=== PATIENT | male | born 1955 | race Caucasian/White ===

== ENCOUNTER 2021-01-30 11:24 | Inpatient (IN) ==
[2021-01-30 12:42] LABS: Basophils # (auto) 0.03 K/uL (0-0.2); Basophils % (auto) 0.3 %; Eosinophils # (auto) 0.15 K/uL (0-0.5); Eosinophils % (auto) 1.5 %; Hematocrit (blood only) 39.5 % (42-52); Hemoglobin 13.1 g/dL (14.0-18.0); Immature Granulocytes # (auto) 0.03 K/uL (0.00-0.02); Immature Granulocytes % (auto) 0.3 %; Lymphocytes # (auto) 1.62 K/uL (1.2-3.4); Lymphocytes % (auto) 16.3 %; Mean Corpuscular Hgb Conc 33.2 g/dL (32-36); Mean Corpuscular Volume 87.6 fL (80-100); Mean Platelet Volume 9.4 fL (7.4-10.4); Monocytes # (auto) 0.85 K/uL (0.11-0.59); Monocytes % (auto) 8.5 %; Neutrophils # (auto) 7.27 K/uL (1.4-6.5); Neutrophils % (auto) 73.1 %; Platelet Count 292 K/uL (130-400); RDW Standard Deviation 41.5 fL (36.4-46.3); Red Blood Count 4.51 M/uL (4.7-6.1); White Blood Count 9.95 K/uL (4.8-10.8)
[2021-01-30 12:51] LABS: INR 1.3 (0.9-1.1); Partial Thromboplastin Time 27.6 Seconds (21.0-31.0); Prothrombin Time 12.9 Seconds (9.0-12.0)
[2021-01-30 12:57] LABS: Albumin Level 3.2 gm/dl (3.4-5.0); BUN Creatinine Ratio 15.7 (10-20); Calcium 9.1 mg/dl (8.5-10.1); Creatinine Clr Calc Pharmacy 98.1 ml/min; Est GFR (African American) 103.6 ml/min; Est GFR (Non-African American) 89.4 ml/min; Magnesium 2.3 mg/dl (1.8-2.4); Potassium 4.2 mmol/L (3.5-5.1)
[2021-01-30 13:11] LABS: Albumin Globulin Ratio 0.7 (0.9-2); Bilirubin,Total 0.9 mg/dl (0.2-1); Globulin 4.6 gm/dl (2.5-4.0); Total Protein 7.8 gm/dl (6.4-8.2); Troponin I 1.17 ng/ml (0-0.045)
[2021-01-30] MEDS ORDERED: OPTIRAY 320 125ml IV ONE (13:18)
--- NOTE | 2021-01-30 13:53 | CT Scan Report ---
NONCONTRAST HEAD CT, HEAD & NECK CTA HISTORY: Left-sided weakness. Lightheaded. TECHNIQUE: Multiaxial CT images of the head were performed both before and after the intravenous admi nistration of contrast to evaluate the major cerebral vessels. Multiaxial CT images of the neck were also performed following the intravenous administration of contrast to evaluate the major cervical ve ssels. Maximum intensity projection images were also obtained. A dose lowering technique was utilized adhering to the principles of ALARA. COMPARISON: Head CT 01/01/2021. FINDINGS: NONCONTRAST HEAD CT: There is a 3.5 cm linear focus of encephalomalacia within the right posterior fr ontal lobe consistent with a old right MCA territory infarct. No acute hemorrhage or midline shift id entified. There are 2 new hypodense foci seen within the right anterior frontal lobe on image 21 and right posterior parietal lobe on image 20 which measure 1.6 and 1.5 cm, respectively. These are consi stent with acute to subacute infarcts. The ventricles are normal in size. The calvarium and skull bas e are intact. Paranasal sinuses and mastoid air cells are clear. There is an old small left frontal l obe infarct, unchanged. HEAD CTA: Visualized intracranial internal carotid arteries, distal vertebral arteries, and basilar a rtery are widely patent. There is no significant stenosis, occlusion, or aneurysm seen within the cecily ateral ACAs, MCAs, or fountain attendant. The major dural venous sinuses are patent. NECK CTA: The aortic arch and proximal great vessels are widely patent. There is no significant sten osis, occlusion, or dissection identified within the bilateral common carotid, internal carotid, or v ertebral arteries. IMPRESSION: 1. There are 2 new small acute to subacute infarcts within the right anterior frontal lobe and right posterior parietal lobe. 2. Old right posterior frontal and left frontal infarcts are again noted. 3. No intracranial hemorrhage identified. 4. No significant stenosis, occlusion, or aneurysm within the [place]. 5. The bilateral cervical carotid and vertebral arteries are widely patent. ACT 112: Negative or not required by law. Electronically signed by: Rashawn Lynch M.D. 01/30/2021 1:51 PM
--- NOTE | 2021-01-30 13:53 | CT Scan Report ---
NONCONTRAST HEAD CT, HEAD & NECK CTA HISTORY: Left-sided weakness. Lightheaded. TECHNIQUE: Multiaxial CT images of the head were performed both before and after the intravenous admi nistration of contrast to evaluate the major cerebral vessels. Multiaxial CT images of the neck were also performed following the intravenous administration of contrast to evaluate the major cervical ve ssels. Maximum intensity projection images were also obtained. A dose lowering technique was utilized adhering to the principles of ALARA. COMPARISON: Head CT 01/01/2021. FINDINGS: NONCONTRAST HEAD CT: There is a 3.5 cm linear focus of encephalomalacia within the right posterior fr ontal lobe consistent with a old right MCA territory infarct. No acute hemorrhage or midline shift id entified. There are 2 new hypodense foci seen within the right anterior frontal lobe on image 21 and right posterior parietal lobe on image 20 which measure 1.6 and 1.5 cm, respectively. These are consi stent with acute to subacute infarcts. The ventricles are normal in size. The calvarium and skull bas e are intact. Paranasal sinuses and mastoid air cells are clear. There is an old small left frontal l obe infarct, unchanged. HEAD CTA: Visualized intracranial internal carotid arteries, distal vertebral arteries, and basilar a rtery are widely patent. There is no significant stenosis, occlusion, or aneurysm seen within the cecily ateral ACAs, MCAs, or raiser helper. The major dural venous sinuses are patent. NECK CTA: The aortic arch and proximal great vessels are widely patent. There is no significant sten osis, occlusion, or dissection identified within the bilateral common carotid, internal carotid, or v ertebral arteries. IMPRESSION: 1. There are 2 new small acute to subacute infarcts within the right anterior frontal lobe and right posterior parietal lobe. 2. Old right posterior frontal and left frontal infarcts are again noted. 3. No intracranial hemorrhage identified. 4. No significant stenosis, occlusion, or aneurysm within the [place]. 5. The bilateral cervical carotid and vertebral arteries are widely patent. ACT 112: Negative or not required by law. Electronically signed by: Rashawn Lynch M.D. 01/30/2021 1:51 PM
--- NOTE | 2021-01-30 13:53 | CT Scan Report ---
NONCONTRAST HEAD CT, HEAD & NECK CTA HISTORY: Left-sided weakness. Lightheaded. TECHNIQUE: Multiaxial CT images of the head were performed both before and after the intravenous admi nistration of contrast to evaluate the major cerebral vessels. Multiaxial CT images of the neck were also performed following the intravenous administration of contrast to evaluate the major cervical ve ssels. Maximum intensity projection images were also obtained. A dose lowering technique was utilized adhering to the principles of ALARA. COMPARISON: Head CT 01/01/2021. FINDINGS: NONCONTRAST HEAD CT: There is a 3.5 cm linear focus of encephalomalacia within the right posterior fr ontal lobe consistent with a old right MCA territory infarct. No acute hemorrhage or midline shift id entified. There are 2 new hypodense foci seen within the right anterior frontal lobe on image 21 and right posterior parietal lobe on image 20 which measure 1.6 and 1.5 cm, respectively. These are consi stent with acute to subacute infarcts. The ventricles are normal in size. The calvarium and skull bas e are intact. Paranasal sinuses and mastoid air cells are clear. There is an old small left frontal l obe infarct, unchanged. HEAD CTA: Visualized intracranial internal carotid arteries, distal vertebral arteries, and basilar a rtery are widely patent. There is no significant stenosis, occlusion, or aneurysm seen within the cecily ateral ACAs, MCAs, or recreational facilities motel manager. The major dural venous sinuses are patent. NECK CTA: The aortic arch and proximal great vessels are widely patent. There is no significant sten osis, occlusion, or dissection identified within the bilateral common carotid, internal carotid, or v ertebral arteries. IMPRESSION: 1. There are 2 new small acute to subacute infarcts within the right anterior frontal lobe and right posterior parietal lobe. 2. Old right posterior frontal and left frontal infarcts are again noted. 3. No intracranial hemorrhage identified. 4. No significant stenosis, occlusion, or aneurysm within the [place]. 5. The bilateral cervical carotid and vertebral arteries are widely patent. ACT 112: Negative or not required by law. Electronically signed by: Rashawn Lynch M.D. 01/30/2021 1:51 PM
[2021-01-30] MEDS ORDERED: SODIUM CHLORIDE 0.9% 1000ML 1,000 ML IV ONE (14:57)
--- NOTE | 2021-01-30 15:06 | Emergency Department Note ---
Impression & Plan CVA (cerebral vascular accident), Anticoagulant long-term use, Third degree heart block, Dizziness ED Provider Note NAME: IDANIA HERNANDEZ AGE: 65 SEX: M ARRIVES VIA: Walk-In INFORMANT: Patient, ED PROVIDER(S): Valentin White MD CHIEF COMPLAINT: Dizziness PLAN: Disposition: Admit MEDICAL DECISION MAKING: The patient is a pleasant 65-year-old gentleman with a past medical history of CVA on 12/26 where he presented with left-sided weakness and was treated with TPA at outside hospital presents to the emergency department accompanied by his for symptoms of frequent dizziness/lightheadedness over the past couple of days and development of tingling in his right lateral proximal forearm. They report that recently they had a outpatient sheet rock hanger that was reviewed and showed intermittent episodes of complete heart block and have a follow-up with [place] cardiology upcoming. There was denies fevers, chills, cough, congestion, GI or symptoms. Of note, the patient was recently admitted to [facility] after presenting to [facility] and was diagnosed with DVT and he is currently on Eliquis. On arrival patient is in no acute distress, afebrile with stable vital signs. He appears clinically dry. His left upper extremity has 4/5 strength at his recent baseline. Otherwise no new focal weakness. He has subjective numbness to the proximal lateral aspect of his right forearm. EKG shows no high degree block and no overt acute ischemia. WBC and platelets then normal limits. H/H 13.1/39.5 decreased from last month. Chemistry without metabolic acidosis. Electrolytes unremarkable. AST 68, alk phos 607 nonspecific and similar to prior. Troponin 1.17 without prior elevations noted. COVID-[address] of the head and CT of the head neck were performed and demonstrates 2 new small acute to subacute infarcts within the right anterior frontal lobe and right posterior parietal lobe. Old right posterior frontal and left frontal infarcts are again noted. Otherwise no large vessel occlusion. Given evidence of new CVA, patient and his agree with plan for admission. [facility] hospital[facility] will evaluate the patient for admission. Triage Nursing notes reviewed and agree them. Prior medical records reviewed Vital Signs: reviewed and remarkable for no significant abnormalities Differential diagnosis: Infection, dehydration, metabolic abnormality, hypo/hyperglycemia, electrolyte disturbance, anemia, hypoxia, cardiac sources, intracerebral event, toxicologic, neurologic, as well as other pathologies. ER treatment provided: See below. Diagnostics interpreted by me: ECG: Normal sinus rhythm with first-degree AV block, 81 bpm, no ectopy, no overt ST elevation or depression, QTC 411, QRS 80. Cardiac Monitoring: An order for continuous cardiac monitoring was placed and demonstrated Normal sinus rhythm with first-degree AV block, 81 bpm, no ectopy. Laboratory studies: See below Imaging studies: See below Consultation(s): [facility] hospitalist HPI: The patient is a pleasant 65-year-old gentleman with a past medical history of CVA on 12/26 where he presented with left-sided weakness and was treated with TPA at outside hospital presents to the emergency department accompanied by his for symptoms of frequent dizziness/lightheadedness over the past couple of days and development of tingling in his right lateral proximal forearm. They report that recently they had a outpatient sheet rock hanger that was reviewed and showed intermittent episodes of complete heart block and have a follow-up with [place] [facility]ology upcoming. There was denies fevers, chills, cough, congestion, GI or symptoms. Of note, the patient was recently admitted to [facility] after presenting to [facility] and was diagnosed with DVT and he is currently on Eliquis. ROS: See above HPI for pertinent positives & negatives. A total of 10 systems reviewed and were otherwise negative. PAST MEDICAL HISTORY:See Below PAST SURGICAL HISTORY:See Below FAMILY HISTORY:See Below SOCIAL HISTORY:See Below HOME MEDICATIONS:See Below ALLERGIES:See Below VITALS:See Below PHYSICAL EXAMINATION: GENERAL: Awake, alert, fatigued-appearing, in no distress HENT: Normocephalic, atraumatic. Oropharynx with dry mucous membranes and otherwise unremarkable. EYES: Normal conjunctiva. Sclera non-icteric. EOMI. No nystamgus. PEARRL. NECK: Supple. No nuchal rigidity. FROM. No JVD. RESPIRATORY: Clear to auscultation. CARDIAC: Regular rate, normal rhythm. Extremities warm and well perfused. Pulses equal. ABDOMEN: Soft, non-distended. No tenderness to palpation. No rebound or guarding. No masses. RECTAL: Deferred. MUSCULOSKELETAL: Chest examination reveals no tenderness. The back is symmetrical on inspection without obvious abnormality. There is no CVA tenderness to palpation. No joint edema. LOWER EXTREMITIES: Calves are equal size bilaterally and non-tender. No edema. No discoloration. NEURO: CNII-XII grossly intact. No dyarthria. No overt aphasia. LUE 4/5 strength. Otherwise 5/5 strength RUE, BLE. SILT x 4 ext. No overt dysmetria. SKIN: No rash or jaundice noted. 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 Beliefs That Will Affect Care: None marital status: Current Living Situation: Spouse current occupational status: employed Feels Safe at Home: Yes Childhood Exposure to Second-Hand Smoke: No Dental Care, Regularly: Yes Physical Activity Frequency: Daily Seatbelt Use: always Sunscreen Use: Yes Assistive Devices: Contacts Allergies Allergies Allergy/AdvReac Type Severity Reaction Status Date / Time Bee sting Allergy Swelling Uncoded 01/30/21 11:48 of Lip/Tongue/Throat Home Meds Home Medications Medication Instructions Recorded Confirmed aspirin 81 mg tablet,delayed 81 mg PO DAILY 01/01/21 01/30/21 release Previous Rx's Medication Instructions Recorded apixaban 5 mg tablet (Eliquis) 5 mg PO BID #60 tab 01/22/21 atorvastatin 40 mg tablet 20 mg PO DAILY #30 tab 01/28/21 Results & Data (ED) Vital Signs Vital Signs - 24 hr 01/30/21 11:26 01/30/21 11:40 01/30/21 11:45 Temperature 36.8 C Temperature Source Temporal Artery Scan Pulse Rate 104 H 84 Pulse Rate from SpO2 Sensor 84 Respiratory Rate 19 18 Respiratory Effort / Characteristics Non-Labored Spontaneous Respiratory Depth Normal Blood Pressure 140/90 140/97 Blood Pressure Mean 106 111 Blood Pressure Position Sitting Pulse Oximetry 95 95 98 Oxygen Delivery Method Room Air Room Air Room Air Sepsis Recent Fever Within 48 Hours No Sepsis New/Unexplained Change in Mental Status N/A Sepsis Action Taken by Nursing No Action Required 01/30/21 12:15 01/30/21 12:30 01/30/21 13:00 Temperature Temperature Source Pulse Rate 79 75 72 Pulse Rate from SpO2 Sensor 79 76 72 Respiratory Rate 23 19 19 Respiratory Effort / Characteristics Respiratory Depth Blood Pressure 138/99 148/93 H Blood Pressure Mean 112 111 Blood Pressure Position Pulse Oximetry 95 96 96 Oxygen Delivery Method Room Air Sepsis Recent Fever Within 48 Hours Sepsis New/Unexplained Change in Mental Status Sepsis Action Taken by Nursing 01/30/21 14:00 01/30/21 14:30 01/30/21 15:00 Temperature Temperature Source Pulse Rate 66 71 71 Pulse Rate from SpO2 Sensor 67 72 70 Respiratory Rate 19 17 19 Respiratory Effort / Characteristics Respiratory Depth Blood Pressure 136/77 133/92 154/101 H Blood Pressure Mean 96 105 118 Blood Pressure Position Pulse Oximetry 95 97 97 Oxygen Delivery Method Sepsis Recent Fever Within 48 Hours Sepsis New/Unexplained Change in Mental Status Sepsis Action Taken by Nursing 01/30/21 15:30 01/30/21 16:02 01/30/21 16:30 Temperature Temperature Source Pulse Rate 71 74 88 Pulse Rate from SpO2 Sensor 69 77 86 Respiratory Rate 16 19 20 Respiratory Effort / Characteristics Respiratory Depth Blood Pressure 143/90 H 162/99 H 155/103 H Blood Pressure Mean 107 120 120 Blood Pressure Position Pulse Oximetry 96 98 98 Oxygen Delivery Method Sepsis Recent Fever Within 48 Hours Sepsis New/Unexplained Change in Mental Status Sepsis Action Taken by Nursing Laboratory Data Attestation: I reviewed the patient's lab results. Result diagrams: 01/30/21 12:15 01/30/21 12:15 Lab Results 01/30/21 01/30/21 01/30/21 Range/Units 12:15 12:15 12:15 WBC 9.95 (4.8-10.8) K/uL RBC 4.51 L (4.7-6.1) M/uL Hgb 13.1 L (14.0-18.0) g/dL Hct 39.5 L (42-52) % MCV 87.6 (80-100) fL MCH 29.0 (25-34) pg MCHC 33.2 (32-36) g/dL RDW Std Deviation 41.5 (36.4-46.3) fL RDW Coeff of [place] 13.0 (11.5-14.5) % Plt Count 292 (130-400) K/uL MPV 9.4 (7.4-10.4) fL Immature Gran % (Auto) 0.3 % Neut % (Auto) 73.1 % Lymph % (Auto) 16.3 % [place] % (Auto) 8.5 % Eos % (Auto) 1.5 % Baso % (Auto) 0.3 % Neut # (Auto) 7.27 H (1.4-6.5) K/uL Lymph # (Auto) 1.62 (1.2-3.4) K/uL [place] # (Auto) 0.85 H (0.11-0.59) K/uL Eos # (Auto) 0.15 (0-0.5) K/uL Baso # (Auto) 0.03 (0-0.2) K/uL Immature Gran # (Auto) 0.03 H (0.00-0.02) K/uL ESR (0-20) mm/hr PT 12.9 H (9.0-12.0) Seconds INR 1.3 H (0.9-1.1) APTT 27.6 (21.0-31.0) Seconds PTT Ratio 1.0 Sodium 137 (136-145) mmol/L Potassium 4.2 (3.5-5.1) mmol/L Chloride 104 (98-107) mmol/L Carbon Dioxide 26 (21-32) mmol/L Anion Gap 7.0 (3-11) BUN 14 (7-18) mg/dl Creatinine 0.91 (0.6-1.4) mg/dl Est Cr Clr Drug Dosing 98.1 ml/min Est GFR ( Amer) 103.6 ml/min Est GFR (Non-Af Amer) 89.4 ml/min BUN/Creatinine Ratio 15.7 (10-20) Glucose 97 (70-99) mg/dl Calcium 9.1 (8.5-10.1) mg/dl Magnesium 2.3 (1.8-2.4) mg/dl Total Bilirubin 0.9 (0.2-1) mg/dl AST 68 H (15-37) U/L ALT 57 (12-78) U/L Alkaline Phosphatase 607 H (45-117) U/L Troponin I 1.170 H* (0-0.045) ng/ml C-Reactive Protein (0-0.29) mg/dl Total Protein 7.8 (6.4-8.2) gm/dl Albumin 3.2 L (3.4-5.0) gm/dl Globulin 4.6 H (2.5-4.0) gm/dl Albumin/Globulin Ratio 0.7 L (0.9-2) COVID-19 Eval Order SARS-CoV-2 (PCR) (Negative) 01/30/21 01/30/21 01/30/21 Range/Units 12:15 12:15 12:34 WBC (4.8-10.8) K/uL RBC (4.7-6.1) M/uL Hgb (14.0-18.0) g/dL Hct (42-52) % MCV (80-100) fL MCH (25-34) pg MCHC (32-36) g/dL RDW Std Deviation (36.4-46.3) fL RDW Coeff of [place] (11.5-14.5) % Plt Count (130-400) K/uL MPV (7.4-10.4) fL Immature Gran % (Auto) % Neut % (Auto) % Lymph % (Auto) % [place] % (Auto) % Eos % (Auto) % Baso % (Auto) % Neut # (Auto) (1.4-6.5) K/uL Lymph # (Auto) (1.2-3.4) K/uL [place] # (Auto) (0.11-0.59) K/uL Eos # (Auto) (0-0.5) K/uL Baso # (Auto) (0-0.2) K/uL Immature Gran # (Auto) (0.00-0.02) K/uL ESR 41 H (0-20) mm/hr PT (9.0-12.0) Seconds INR (0.9-1.1) APTT (21.0-31.0) Seconds PTT Ratio Sodium (136-145) mmol/L Potassium (3.5-5.1) mmol/L Chloride (98-107) mmol/L Carbon Dioxide (21-32) mmol/L Anion Gap (3-11) BUN (7-18) mg/dl Creatinine (0.6-1.4) mg/dl Est Cr Clr Drug Dosing ml/min Est GFR ( Amer) ml/min Est GFR (Non-Af Amer) ml/min BUN/Creatinine Ratio (10-20) Glucose (70-99) mg/dl Calcium (8.5-10.1) mg/dl Magnesium (1.8-2.4) mg/dl Total Bilirubin (0.2-1) mg/dl AST (15-37) U/L ALT (12-78) U/L Alkaline Phosphatase (45-117) U/L Troponin I (0-0.045) ng/ml C-Reactive Protein 9.76 H (0-0.29) mg/dl Total Protein (6.4-8.2) gm/dl Albumin (3.4-5.0) gm/dl Globulin (2.5-4.0) gm/dl Albumin/Globulin Ratio (0.9-2) COVID-19 Eval Order Covid19 at [facility] SARS-CoV-2 (PCR) (Negative) 01/30/21 Range/Units 12:34 WBC (4.8-10.8) K/uL RBC (4.7-6.1) M/uL Hgb (14.0-18.0) g/dL Hct (42-52) % MCV (80-100) fL MCH (25-34) pg MCHC (32-36) g/dL RDW Std Deviation (36.4-46.3) fL RDW Coeff of [place] (11.5-14.5) % Plt Count (130-400) K/uL MPV (7.4-10.4) fL Immature Gran % (Auto) % Neut % (Auto) % Lymph % (Auto) % [place] % (Auto) % Eos % (Auto) % Baso % (Auto) % Neut # (Auto) (1.4-6.5) K/uL Lymph # (Auto) (1.2-3.4) K/uL [place] # (Auto) (0.11-0.59) K/uL Eos # (Auto) (0-0.5) K/uL Baso # (Auto) (0-0.2) K/uL Immature Gran # (Auto) (0.00-0.02) K/uL ESR (0-20) mm/hr PT (9.0-12.0) Seconds INR (0.9-1.1) APTT (21.0-31.0) Seconds PTT Ratio Sodium (136-145) mmol/L Potassium (3.5-5.1) mmol/L Chloride (98-107) mmol/L Carbon Dioxide (21-32) mmol/L Anion Gap (3-11) BUN (7-18) mg/dl Creatinine (0.6-1.4) mg/dl Est Cr Clr Drug Dosing ml/min Est GFR ( Amer) ml/min Est GFR (Non-Af Amer) ml/min BUN/Creatinine Ratio (10-20) Glucose (70-99) mg/dl Calcium (8.5-10.1) mg/dl Magnesium (1.8-2.4) mg/dl Total Bilirubin (0.2-1) mg/dl AST (15-37) U/L ALT (12-78) U/L Alkaline Phosphatase (45-117) U/L Troponin I (0-0.045) ng/ml C-Reactive Protein (0-0.29) mg/dl Total Protein (6.4-8.2) gm/dl Albumin (3.4-5.0) gm/dl Globulin (2.5-4.0) gm/dl Albumin/Globulin Ratio (0.9-2) COVID-19 Eval Order SARS-CoV-2 (PCR) NEGATIVE (Negative) Administered Medications Heparin Sodium/Dextrose (Heparin Sodium/Dextrose) 25,000 units in 500 mls @ 30 mls/hr IV .[id number] [facility]; Protocol Stop: 03/01/21 20:16 Last Admin: 01/30/21 21:02 Dose: 1,500 units/hr, 30 mls/hr Documented by: [id number] Cosigned by: [id number] Discontinued Medications Gadobutrol (Gadobutrol 65ml Vial) 9.5 ml IV ONCE ONE Stop: 01/30/21 18:43 Last Admin: 01/30/21 18:42 Dose: 9.5 ml Documented by: [id number] Heparin Sodium/Dextrose (Heparin Iv Adult Wt-Based Standard *No* Bolus Protocol) 1 ea IV Q30M [facility]; Protocol Stop: 01/30/21 22:48 Last Admin: 01/30/21 21:40 Dose: Not Given Documented by: [id number] Sodium Chloride (Nss 1000ml) 1,000 mls @ 999 mls/hr IV .[id number] ONE Stop: 01/30/21 15:57 Last Infusion: 01/30/21 16:37 Dose: 0 mls/hr Documented by: [id number] Admin: 01/30/21 15:18 Dose: 999 mls/hr Documented by: [id number] Ioversol (Optiray 320 125ml) 120 ml IV ONCE ONE Stop: 01/30/21 13:19 Last Admin: 01/30/21 13:18 Dose: 120 ml Documented by: [id number] Imaging Data Radiologist's Impression: Head CT 01/30/21 12:[address], HEAD & NECK CTA HISTORY: Left-sided weakness. Lightheaded. TECHNIQUE: Multiaxial CT images of the head were performed both before and after the intravenous administration of contrast to evaluate the major cerebral vessels. Multiaxial CT images of the neck were also performed following the intravenous administration of contrast to evaluate the major cervical vessels. Maximum intensity projection images were also obtained. A dose lowering technique was utilized adhering to the principles of ALARA. COMPARISON: Head CT 01/01/2021. FINDINGS: NONCONTRAST HEAD CT: There is a 3.5 cm linear focus of encephalomalacia within the right posterior frontal lobe consistent with a old right MCA territory infarct. No acute hemorrhage or midline shift identified. There are 2 new hypodense foci seen within the right anterior frontal lobe on image 21 and right posterior parietal lobe on image 20 which measure 1.6 and 1.5 cm, respectively. These are consistent with acute to subacute infarcts. The ventricles are normal in size. The calvarium and skull base are intact. Paranasal sinuses and mastoid air cells are clear. There is an old small left frontal lobe infarct, unchanged. HEAD CTA: Visualized intracranial internal carotid arteries, distal vertebral arteries, and basilar artery are widely patent. There is no significant stenosis, occlusion, or aneurysm seen within the bilateral ACAs, MCAs, or lunch truck driver. The major dural venous sinuses are patent. NECK CTA: The aortic arch and proximal great vessels are widely patent. There is no significant stenosis, occlusion, or dissection identified within the bilateral common carotid, internal carotid, or vertebral arteries. IMPRESSION: 1. There are 2 new small acute to subacute infarcts within the right anterior frontal lobe and right posterior parietal lobe. 2. Old right posterior frontal and left frontal infarcts are again noted. 3. No intracranial hemorrhage identified. 4. No significant stenosis, occlusion, or aneurysm within the [place]. 5. The bilateral cervical carotid and vertebral arteries are widely patent. ACT 112: Negative or not required by law. Electronically signed by: Rashawn Lynch M.D. 01/30/2021 1:51 PM Head CTA 01/30/21 12:[address], HEAD & NECK CTA HISTORY: Left-sided weakness. Lightheaded. TECHNIQUE: Multiaxial CT images of the head were performed both before and after the intravenous administration of contrast to evaluate the major cerebral vessels. Multiaxial CT images of the neck were also performed following the intravenous administration of contrast to evaluate the major cervical vessels. Maximum intensity projection images were also obtained. A dose lowering technique was utilized adhering to the principles of ALARA. COMPARISON: Head CT 01/01/2021. FINDINGS: NONCONTRAST HEAD CT: There is a 3.5 cm linear focus of encephalomalacia within the right posterior frontal lobe consistent with a old right MCA territory infarct. No acute hemorrhage or midline shift identified. There are 2 new hypodense foci seen within the right anterior frontal lobe on image 21 and right posterior parietal lobe on image 20 which measure 1.6 and 1.5 cm, respectively. These are consistent with acute to subacute infarcts. The ventricles are normal in size. The calvarium and skull base are intact. Paranasal sinuses and mastoid air cells are clear. There is an old small left frontal lobe infarct, unchanged. HEAD CTA: Visualized intracranial internal carotid arteries, distal vertebral arteries, and basilar artery are widely patent. There is no significant stenosis, occlusion, or aneurysm seen within the bilateral ACAs, MCAs, or lunch truck driver. The major dural venous sinuses are patent. NECK CTA: The aortic arch and proximal great vessels are widely patent. There is no significant stenosis, occlusion, or dissection identified within the bilateral common carotid, internal carotid, or vertebral arteries. IMPRESSION: 1. There are 2 new small acute to subacute infarcts within the right anterior frontal lobe and right posterior parietal lobe. 2. Old right posterior frontal and left frontal infarcts are again noted. 3. No intracranial hemorrhage identified. 4. No significant stenosis, occlusion, or aneurysm within the [place]. 5. The bilateral cervical carotid and vertebral arteries are widely patent. ACT 112: Negative or not required by law. Electronically signed by: Rashawn Lynch M.D. 01/30/2021 1:51 PM Neck CTA 01/30/21 12:[address], HEAD & NECK CTA HISTORY: Left-sided weakness. Lightheaded. TECHNIQUE: Multiaxial CT images of the head were performed both before and after the intravenous administration of contrast to evaluate the major cerebral vessels. Multiaxial CT images of the neck were also performed following the intravenous administration of contrast to evaluate the major cervical vessels. Maximum intensity projection images were also obtained. A dose lowering tech nique was utilized adhering to the principles of ALARA. COMPARISON: Head CT 01/01/2021. FINDINGS: NONCONTRAST HEAD CT: There is a 3.5 cm linear focus of encephalomalacia within the right posterior frontal lobe consistent with a old right MCA territory infarct. No acute hemorrhage or midline shift identified. There are 2 new hypodense foci seen within the right anterior frontal lobe on image 21 and right posterior parietal lobe on image 20 which measure 1.6 and 1.5 cm, respectively. These are consistent with acute to subacute infarcts. The ventricles are normal in size. The calvarium and skull base are intact. Paranasal sinuses and mastoid air cells are clear. There is an old small left frontal lobe infarct, unchanged. HEAD CTA: Visualized intracranial internal carotid arteries, distal vertebral arteries, and basilar artery are widely patent. There is no significant stenosis, occlusion, or aneurysm seen within the bilateral ACAs, MCAs, or lunch truck driver. The major dural venous sinuses are patent. NECK CTA: The aortic arch and proximal great vessels are widely patent. There is no significant stenosis, occlusion, or dissection identified within the bilateral common carotid, internal carotid, or vertebral arteries. IMPRESSION: 1. There are 2 new small acute to subacute infarcts within the right anterior frontal lobe and right posterior parietal lobe. 2. Old right posterior frontal and left frontal infarcts are again noted. 3. No intracranial hemorrhage identified. 4. No significant stenosis, occlusion, or aneurysm within the [place]. 5. The bilateral cervical carotid and vertebral arteries are widely patent. ACT 112: Negative or not required by law. Electronically signed by: Rashawn Lynch M.D. 01/30/2021 1:51 PM Discharge Plan Visit Data Chief Complaint: Stroke/CVA Symptoms Stated Complaint: STROKE SYMPTOMS ED Provider: Valentin White Discharge Problem: CVA (cerebral vascular accident), Anticoagulant long-term use, Third degree heart block, Dizziness Patient Disposition: Admitted As Inpatient Discharge Instructions Interventions: ED Discharge Assessment Last Done: 01/30/21 19:41 Discharge Problem: CVA (cerebral vascular accident) Qualifiers: CVA mechanism: unspecified Qualified Code(s): I63.9 - Cerebral infarction, unspecified
--- NOTE | 2021-01-30 17:02 | History & Physical Report ---
Date of Service January 30, 2021 Assessment & Plan (1) Right sided cerebral hemisphere cerebrovascular accident (CVA): Plan: Mr. Caban is a 65 year old gentleman who recently suffered a bi-hemispheric ischemic stroke in November 2020, found to have two new small acute to subacute infarcts within the right anterior frontal lobe and right posterior parietal lobe. - etiology of ischemic strokes likely embolic given bihemispheric distribution. Suspect central cardiothromboembolic origin. Differential includes left atrial appendage clot (although no Afib noted on 14 day monitor), LV thrombus, PFO (although patient had negative bubble study with TTE at [facility]), and severe thrombotic disease of proximal ascending aorta - tpA contraindicated, as patient presented outside window, and he is currently on blood thinner. - Brain MRI ordered - TTE with bubble study ordered - if this is negative, consider NELLIE - lipid panel and HbA1c in am - consider Chest CTA to assess morphology/atherosclerotic state of ascending aorta - refrain from anti-hypertensive use, allowing for permissive HTN in acute post- stroke period - neuro checks Q2h - continue daily baby aspirin and increase atorvastatin to 40mg daily - neurology consult placed (2) Third degree heart block: Plan: - captured on 14 day external media monitor - etiology uncertain: ischemic disease (plausible given elevated trop) vs. non-i schemic age-related degeneration of cardiac conduction system vs. secondary to lyme disease - lyme testing ordered - external pacer pads placed - monitor on telemetry - cardiology consult placed - anticipate need for pacemaker placement (3) Elevated troponin: Plan: - trop 1.17 on admission - patient denies chest pain - EKG without acute ST segment changes or repolarization abnormalities - on heparin ggt - trend levels - cardiology consult placed - NPO in the event of potential catheterization (4) Inadequate anticoagulation: Plan: - new ischemic strokes noted on admission head CT despite Eliquis use - patient had tolerance issues with warfarin and has now failed Eliquis - antiphospholipid antibody testing ordered; consider additional clotting disorder work up if negative - placed on heparin drip - consider re-trial of warfarin vs. therapeutic Lovenox dosing as outpatient (5) DVT (deep venous thrombosis): Plan: - noted end of November 2020 of Left LE - on heparin drip (6) Dyslipidemia: Plan: - continue atorvastatin + daily baby ASA (7) Elevated AST (SGOT): Plan: - elevated to 68 on admission - suspect released from cardiac myocytes under strain (given co-existent elevated trop) - trend CMP Diet: NPO in the event of potential cath Dvt ppx: On heparin drip Dispo: PCU Code: Full, I discussed with patient History of Present Illness Primary Care Provider: Mino Payan MD Mr. Caban is a 65 yo gentleman with a PMHx of recent ischemic cerebrovascular disease, DVT and dyslipidemia who presented for evaluation of intermittent dizziness/lightheadedness and R upper extremity numbness. These symptoms started 01/28/21 - he contacted his PCP's office today, who directed him to the ED for further evaluation. Of note, patient was on vacation with his family in [place] in November 2020. One morning while shaving, he noticed sudden onset left hand numbness/weakness/clumsiness. He went to a local emergency department, where a stroke work up was performed. He was found to have an ischemic right posterior frontal and left frontal infarct. He was treated with tPA. In-house neurology was consulted and felt as though his strokes were embolic in origin - of note he did have a TTE at outside hospital with a negative bubble study; nor were any arrhythmias captured on monitor during his stay at outside hospital. Subsequent cat scans of the head showed multiple punctate cerebrale hemorrhages (hemorrhagic transformation). He was discharged on a daily baby aspirin and sent home with a ziopatch (external media monitor). The next day, he drove back up to [place] with his family - during the 10 hour car ride, he developed new onset left lower extremity pain. He had this evaluated immediately in the [facility] ED - doppler US was positive for multiple DVTs in the left lower extremity. He was started on a Lovenox bridge to coumadin. He was transferred to [facility] in the event this DVT would need manual intervention despite initiation of Lovenox - fortunately it did not. However, after being on coumadin for several days, he developed a rash (described as fine red ybarra) all over his bilateral lower legs, and bilateral leg pain. The leg discomfort began so significant that he was having a great deal of difficulty ambulating. For this reason, he was transitioned from coumadin to Eliquis 5mg, BID. Subsequently, he has received the results of the 14 day media monitor report - which showed intermittent 3rd degree heart block, 2nd degree heart block, and SVT. He has not yet seen cardiology. He has been doing PT and OT for his residual left hand clumsiness/weakness. Mr. Caban insists he has been taking with Eliquis as directed, denying any missed doses. He was started on a high intensity statin (lipitor 40mg) by his PCP, however the dose was reduced over the past 10 days to 20mg every other day (PCP was trying to see if b/l lower extremity weakness was from statin rather than myalgia). He was previously on chlorthalidone for his blood pressure, but was able to come off this medication with lifestyle modifications. Family Hx: No known clotting disorders. Father of a massive heart attack at age 77. Social Hx: Remote smoking hx (smoked for 4 years, quit > 40 years ago). Social drinker (1-2 drinks per month). He denies any known tick bites this summer or spring. In the ED, he was febrile with a normal HR and mildly elevated BP at 141/89. His Hgb was mildly low at 13.1, CBC otherwise unremarkable. Kidney function and electrolytes were WNL. AST was elevated to 86, ALT was normal. Trop was elevated to 1.17. COVID 19 neg. EKG showing a 1st degree AV krishna block, no ST segment changes. Head CT showed no evidence of an acute hemorrhage. Head and Neck CTA showed evidence of 2 new small acute to subacute infarcts within the right anterior frontal lobe and right posterior parietal lobe. He was given 1 liter of NSS. Allergies Allergy/AdvReac Type Severity Reaction Status Date / Time Bee sting Allergy Swelling Uncoded 01/30/21 11:48 of Lip/Tongue/Throat Home Medications Medication Instructions Recorded Confirmed Type aspirin 81 mg tablet,delayed 81 mg PO DAILY 01/01/21 01/30/21 History release apixaban 5 mg tablet (Eliquis) 5 mg PO BID #60 tab 01/22/21 01/30/21 Rx atorvastatin 40 mg tablet 20 mg PO DAILY #30 tab 01/28/21 01/30/21 Rx Past Med/Surg History Medical History DVT (deep venous thrombosis) Late effects of CVA (cerebrovascular accident) Left leg pain Leg pain, bilateral Lightheadedness Right sided cerebral hemisphere cerebrovascular accident (CVA) Third degree heart block Surgical History No pertinent past surgical history Family History Father Myocardial infarction Social History Smoking Status: Former smoker Hx Alcohol Use: Yes Alcohol type: wine Hx Substance Use: No Preferred Language: Cypriot Visual Impairment: Limited Hearing Ability: Normal marital status: Current Living Situation: Spouse current occupational status: employed Feels Safe at Home: Yes Childhood Exposure to Second-Hand Smoke: No Dental Care, Regularly: Yes Physical Activity Frequency: Daily Seatbelt Use: always Sunscreen Use: Yes Review of Systems Constitutional: no fever and no chills Respiratory: no cough Cardiovascular: no chest pain and no dyspnea Gastrointestinal: no abdominal pain Neurologic: + localized weakness (left upper extremity ) and + paresthesia (right upper extremity ) + headache Physical Exam Constitutional: WD/WN, vitals as above no acute distress Eyes: PERRL, conjunctivae normal, anicteric sclerae normal accommodation and + nystagmus (horizontal ) ENMT: external ear and nose normal, oropharynx normal Throat: uvula midline Neck: trachea midline, no thyromegaly Respiratory: normal respiratory effort, lungs clear to auscultation Cardiovascular: RRR, no murmur, no edema Heart Sounds: normal S1 and normal S2 Vessels: normal carotid upstroke; no carotid bruit Gastrointestinal (Abdomen): normal bowel sounds, soft, nontender, no hepatosplenomegaly Musculoskeletal: no cyanosis or clubbing, extremities motor strength 5/5 Head/Neck/Chest: normocephalic and head atraumatic Skin: no rashes, warm and dry Neurologic: PERRL, EOMI, accommodation nl, no face palsy, no dysarthria CN's II-XI intact bilaterally and moves all extremities; no focal motor deficits Speech / Cognition: normal speech Motor/Sensory: no tremor Coordination: + abnormal [id number] test (left side) Psychiatric: A+Ox3, euthymic affect Results & Data Results & Data ([facility]) Vital Signs (Past 12 Hours) Vital Signs Temp Pulse Resp BP Pulse Ox 09/01/21 16:30 88 20 155/103 H 98 01/30/21 16:02 74 19 162/99 H 98 01/30/21 15:30 71 16 143/90 H 96 01/30/21 15:00 71 19 154/101 H 97 01/30/21 14:30 71 17 133/92 97 01/30/21 14:00 66 19 136/77 95 01/30/21 13:00 72 19 148/93 H 96 01/30/21 12:30 75 19 138/99 96 01/30/21 12:15 79 23 95 01/30/21 11:45 84 18 140/97 98 01/30/21 11:40 95 01/30/21 11:26 36.8 C 104 H 19 140/90 95 Code Status & VTE Plan VTE Prophylaxis Plan VTE Prophylaxis will be ordered: Yes Supervising Physician Co-Signing Physician Notes I personally examined the patient and verified all berry points of history and exam, discussed case, and agree with decision making with Dr Esctoo Feeling off. Lots of paresthesias, dizziness, just generally not feeling well. Fortunately when I see him, he feels no worse than earlier. No worse headache, no new neuro deficits, etc. Recent history reviewed in detail. Vitals noted, in general he is awake and alert, oriented, no distress. He does seem slightly slower to respond than 1 would expect for a man of his age and prior good health, but to be clear he is quite coherent. HEENT normocephalic atraumatic mucous membranes moist. Breathing unlabored no accessory muscle use good effort. Skin without rashes pallor or icterus. Exam otherwise as above. Labs and diagnostics as aboveof note after Dr. Escoto had seen patient, MRI was done/returneddiffuse multiple scattered areas consistent with embolic infarct. Embolic CVA -The "clot" differentials seem most likely to either be a paradoxical embolus, given the context of his current DVT, or an LV thrombuswhich would fit together with his elevated troponin and complete heart block. Both of these, however, would entail failing apixaban as an anticoagulant as it relates to the clotswhich would also begs the question of any sort of thrombophilia that might fail a DOAC (such as antiphospholipid's) -In discussion with neurology, Dr. Douglas raised the very hernandez consideration of emboli that are not clotssuch as septic emboliblood cultures have been ordered, inflammatory markers ordered. He also raised the question of [employer] vasculitis type processesand will be seeing him for further work-up as it relates to imaging, in that respect, inflammatory markers also added. -For now, the risk/benefit of anticoagulation seems to favor anticoagulation, given that most of our differentials would entail some form of clotting, the patient seems to have an active degree of clotting happening in real-time, and while he has had bleeding as well, it appears to be improving compared to before. I had a very savage discussion with patient on risk/benefit of anticoagulation versus watchful waiting, and we both agree that while risky, anticoagulation clearly has a more favorable risk-benefit profile at this point. Patient will be monitored quite closely, and should he develop any new neuro deficits, worsening headache, etc., repeat head CT will be donenight team is aware of his situation. Complete heart block/elevated troponin -Could potentially relate to abovesee [place] with LV thrombus differentialbut may also be unrelated. Lyme sentif positive, could possibly be the complete heart block is cardiac Lymeand would treat accordingly. Elevated troponin, will trend, will await echo and cardiology evaluation, have to assume potentially coronary disease until proven otherwise, but fortunately not actively symptomatic at this time. Otherwise as above. Resident Activity Tracking Resident Involvement: Resident Care Provided Care Provided: Adult Hospital Medicine
[2021-01-30] MEDS ORDERED: GADOBUTROL 65ML VIAL IV ONE (18:42)
--- NOTE | 2021-01-30 18:59 | Magnetic Resonance Report ---
Brain MRI WITH AND WITHOUT CONTRAST HISTORY: Dizziness. ischemic stroke TECHNIQUE: Multiplanar multisequence MRI of the brain was performed both before and after the intrave nous administration of contrast. COMPARISON STUDY: Head CT 01/30/2021. Outside hospital brain MRI 12/27/2020. FINDINGS: Multiple scattered small foci of restricted diffusion seen within the bilateral frontal, pa rietal, and occipital lobes as well as the bilateral cerebellar hemispheres. There are greater than 3 0 scattered foci of restricted diffusion consistent with embolic infarcts. Dominant focus of restrict ed diffusion within the right frontal lobe measures 1.5 cm. These are subacute infarct demonstrate as sociated edema. Expected evolution of the subacute to chronic right posterior frontal infarct seen on the prior studies. The ventricles are normal in size. Susceptibility artifact within the old right p osterior frontal lobe infarct measuring 1.7 cm. This likely corresponds to the resolving known hemorr hagic component. There is no mass or midline shift. The major vascular flow-voids at the skull base a re well-maintained. The paranasal sinuses and mastoid air cells are clear. Incidental note is made of a small developmental venous anomaly within the right cerebral hemisphere. This is considered to be a normal variant. Small amount of linear increased T1 signal enhancement within the subacute to chron ic right posterior frontal lobe infarct is consistent with the expected evolution. No additional area s of enhancement within the brain. IMPRESSION: 1. Interval development of multiple scattered small infarcts seen throughout the cerebral and cerebel lar hemispheres. This is consistent with embolic infarcts. 2. Expected evolution within the subacute to chronic right posterior frontal infarct with a small res olving hemorrhagic component. ACT 112: Negative or not required by law. Electronically signed by: Rashawn Lynch M.D. 01/30/2021 6:58 PM
--- NOTE | 2021-01-30 20:09 | Billing Data ---
Date of Service January 30, 2021 Coding Level of Care Code 05547 Initial Inpt Care Lvl 3
[2021-01-30] MEDS ORDERED: POLYETHYLENE (MIRALAX) 17 GM PACK PO PRN (20:17)
[2021-01-30] MEDS ORDERED: ACETAMINOPHEN 325 MG TAB PO PRN (20:17)
[2021-01-30] MEDS ORDERED: Heparin IV Adult Wt-Based Standard *NO* Bolus Protocol IV SCH (20:17)
[2021-01-30] MEDS ORDERED: ONDANSETRON INJ 2 MG/ML 2 ML VIAL IV PRN (20:17)
[2021-01-30] MEDS: HEPARIN SODIUM/DEXTROSE 25,000 UNITS/500 ML BAG IV SCH (21:02)
[2021-01-30 22:46] LABS: Lyme Ab IgG w/WB Rflx Positive (Negative); Lyme Ab IgM w/WB Rflx Positive (Negative)
[2021-01-31 03:37] LABS: Basophils # (auto) 0.02 K/uL (0-0.2); Basophils % (auto) 0.2 %; Eosinophils % (auto) 3.4 %; Hematocrit (blood only) 35.6 % (42-52); Hemoglobin 11.8 g/dL (14.0-18.0); Immature Granulocytes # (auto) 0.02 K/uL (0.00-0.02); Immature Granulocytes % (auto) 0.2 %; Lymphocytes # (auto) 1.71 K/uL (1.2-3.4); Lymphocytes % (auto) 19.6 %; Mean Corpuscular Hemoglobin 28.9 pg (25-34); Mean Corpuscular Hgb Conc 33.1 g/dL (32-36); Mean Corpuscular Volume 87.3 fL (80-100); Mean Platelet Volume 9.1 fL (7.4-10.4); Monocytes # (auto) 0.76 K/uL (0.11-0.59); Monocytes % (auto) 8.7 %; Neutrophils # (auto) 5.91 K/uL (1.4-6.5); Neutrophils % (auto) 67.9 %; Platelet Count 238 K/uL (130-400); RDW Coefficient of Variation 12.8 % (11.5-14.5); RDW Standard Deviation 41.3 fL (36.4-46.3); Red Blood Count 4.08 M/uL (4.7-6.1); White Blood Count 8.72 K/uL (4.8-10.8)
[2021-01-31 04:03] LABS: Partial Thromboplastin Ratio 2.1
[2021-01-31 04:17] LABS: Albumin Level 2.7 gm/dl (3.4-5.0); BUN Creatinine Ratio 14.5 (10-20); Calcium 8.4 mg/dl (8.5-10.1); Creatinine Clr Calc Pharmacy 118.2 ml/min; Est GFR (African American) 113.2 ml/min; Est GFR (Non-African American) 97.6 ml/min; Potassium 4.1 mmol/L (3.5-5.1)
[2021-01-31 04:19] LABS: Albumin Globulin Ratio 0.7 (0.9-2); Total Protein 6.7 gm/dl (6.4-8.2)
[2021-01-31 04:25] LABS: Partial Thromboplastin Time 55.8 Seconds (21.0-31.0)
[2021-01-31 04:47] LABS: Troponin I 1.29 ng/ml (0-0.045)
[2021-01-31] MEDS: DOXYCYCLINE HYCLATE 100 MG in DEXTROSE 5% 100 ML IV SCH ×2 (05:33→16:33)
--- NOTE | 2021-01-31 05:58 | Electrocardiogram Report ---
Test Reason : Blood Pressure : / mmHG Vent. Rate : 081 BPM Atrial Rate : 081 BPM P-R Int : 210 ms QRS Dur : 080 ms QT Int : 354 ms P-R-T Axes : 014 -12 011 degrees QTc Int : 411 ms Sinus rhythm with 1st degree A-V block Otherwise normal ECG No previous ECGs available Confirmed by Eliazar Day ([id number]) on 01/31/2021 5:58:30 AM Referred By: Mino Payan Confirmed By:Eliazar Day
[2021-01-31 07:39] LABS: Estimated Average Glucose 134 mg/dl; Hemoglobin A1C 6.3 % (4.5-5.6)
[2021-01-31] MEDS: ASPIRIN 81 MG ECTAB PO SCH (08:39)
[2021-01-31] MEDS: ATORVASTATIN 20 MG TAB PO SCH (08:39)
--- NOTE | 2021-01-31 10:37 | Neurology Consultation ---
Date of Consultation January 31, 2021 Assessment & Plan (1) Right sided cerebral hemisphere cerebrovascular accident (CVA): (2) DVT (deep venous thrombosis): (3) Third degree heart block: This is a complicated patient neurologically. Patient suffered a right posterior frontal stroke in late November of this year resulting in some left jeff paresis. He still has some residual mild weakness and clumsiness in the distal left upper extremity. He has no other signs of stroke and no other upper motor neuron or lower motor neuron findings. He has no encephalopathy or meningeal signs. He had received tPA originally and had some hemorrhagic transformation of the stroke. Unfortunately he experience DVT after a long car ride home early December requiring anticoagulation. The CT with a hemorrhagic stroke was seen during that emergency room visit. On 81 milligram aspirin and Eliquis he came to the ER yesterday with some right upper extremity dysesthesias at the elbow. CT scan of the head seem to show new lesions of a subacute nature without hemorrhage. The original lesion was not hemorrhagic either. CT angiography showed no vascular anomalies of the head and neck but an MRI revealed multiple small scattered lesions in the cerebellar and cerebral hemispheres bilaterally of a new nature. Etiology of these lesions is not entirely clear to me. I doubt these represent scattered embolic strokes but I am more concerned about inflammatory or infectious disease given his lab parameters and elevated C reactive protein and sed rate. His Lyme antibody titer is positive and this could be Lyme disease. Other vasculitis or inflammatory disease is possible. MRI showed no enhancement so I doubt these lesions represent metastases. Interestingly, given the amount of these lesions he really is doing quite well neurologically, clinically. Recommendations: 1. Cardiology consult regarding his dysrhythmia found on event monitor. 2. Lumbar puncture to evaluate for inflammatory infectious disease. 3. Awaiting Lyme Western blot. 4. we will follow Overall, I spent a total of 90 minutes with this case including review of records, review of MRI and CT scan films, direct evaluation the patient at bedside, and discussion of the case with the patient at bedside, RN at bedside, and Dr. Mitchell including differential diagnosis and treatment options. History of Present Illness Reason for Consultation: patient is a 65-year-old, who I was asked to see at the request of Dr. Mitchell, for neurologic consultation regarding stroke and other issues Requesting Physician: Dr. Mitchell Attending Physician: Abdulkadir R Stephen, DO History of Present Illness patient was in excellent health prior to November of this year. He was on no medication and had no issues or history of hypertension, diabetes, stroke, cholesterol issues, or heart problems. 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 He does not remember a tick bite. 30 November 2027, while on vacation at [place], he was standing in the morning getting cleaned up when he had the sudden onset of clumsiness of the left hand. He sat down and noted that his whole left side was weak and possibly numb as well. He was taken to a local emergency room and given tPA. Imaging study showed a right frontal stroke (and possible left frontal stroke as well). Eduar with bubble study and echocardiogram were unremarkable. He had no cardiac dysrhythmias apparently. A follow-up CT scan showed some petechial hemorrhage around the site of the stroke but no gross hemorrhage. He was discharged on aspirin 4 days later feeling improved but still having left-sided issues of weakness and numbness. On the 10 hour car ride home the day of discharge, January 02, by the end of the trip when he got to [employer] his left calf was cramping in a continuous fashion. He came to emergency room and was found to have a 3.5 x 3 centimeter right frontal temporal hypodensity with loss of burns-white differentiation consistent with a subacute infarct. There was a 1.2 centimeter hyperdense focus consistent with a small bout of hemorrhage with no mass effect. Doppler study showed left DVT at multiple levels. Because of his complexity he was sent to [facility] in [place]. They put him on Coumadin but he developed a rash. He was then put on Eliquis. After for 5 days he was discharged on a 14 day heart monitor. after discharge from [place] he was doing better and had no leg issues. The left arm is still weak and is getting physical therapy at [place]. Several days ago he got a call from his primary care physician stating that his heart monitor showed third-degree and second-degree heart blocks with SVT. He was set up to see cardiology later this month. He came to the emergency room January 30 at 11:26 with some lightheadedness and dysesthesias/ numbness around his right elbow. He was afebrile and his blood pressure was 140/90. CT scan of the head showed the old right posterior frontal lesion with no hemorrhage. There were 2 new hypodensities suggesting subacute infarcts in the right anterior frontal lobe and right posterior parietal lobe. Again, there was no hemorrhage. CT angiography of the head and neck were unremarkable without any significant vascular stenoses or anomalies. MRI of the brain revealed Upwards to 30 small irregular spots on diffusion imaging in the cerebellum bilaterally and the cerebral hemispheres both p eripherally in the cortex and in the deep white matter. They did not enhance with contrast. There was no mass effect. Laboratory studies revealed a mild anemia and a sed rate of 41. Chem profile was unremarkable although hemoglobin A1c was 6.3. Alkaline phos was elevated at 607 and AST was 68. troponin was elevated at 1.35 and C reactive protein was elevated at 9.76. Lyme IgG and IgM screening were positive. Western blot is pending. Patient himself has no pain or headaches. He is weak in the arm but has no numbness. He has no speech or mentation issues. He denies joint pain or nikita hes. Blood pressure is 146/88 Allergies Allergy/AdvReac Type Severity Reaction Status Date / Time Bee sting Allergy Swelling Uncoded 01/30/21 11:48 of Lip/Tongue/Throat Home Medications Medication Instructions Recorded Confirmed Type aspirin 81 mg tablet,delayed 81 mg PO DAILY 01/01/21 01/30/21 History release apixaban 5 mg tablet (Eliquis) 5 mg PO BID #60 tab 01/22/21 01/30/21 Rx atorvastatin 40 mg tablet 20 mg PO DAILY #30 tab 01/28/21 01/30/21 Rx Patient History Medical History DVT (deep venous thrombosis) Late effects of CVA (cerebrovascular accident) Left leg pain Leg pain, bilateral Lightheadedness Right sided cerebral hemisphere cerebrovascular accident (CVA) Third degree heart block Surgical History No pertinent past surgical history Family History Father , age 77 of an [place] Myocardial infarction Social History Smoking Status: Former smoker Hx Alcohol Use: Yes Alcohol type: wine Hx Substance Use: No Preferred Language: Portuguese Communication Ability: Effective Visual Impairment: Limited Hearing Ability: Normal Certified Master Safe Technician Required: No Beliefs That Will Affect Care: None marital status: Current Living Situation: Spouse current occupational status: employed Feels Safe at Home: Yes Childhood Exposure to Second-Hand Smoke: No Dental Care, Regularly: Yes Physical Activity Frequency: Daily Seatbelt Use: always Sunscreen Use: Yes Assistive Devices: Contacts Review of Systems Constitutional: no fever, no fatigue and no weakness Eyes: no diplopia, no eye pain and no worsening vision Ear, Nose, Mouth, Throat: no ear pain, no tinnitus, no hearing loss, no dizziness, no snoring, no hoarseness and no dysphagia Respiratory: no cough and no dyspnea Cardiovascular: no chest pain, no palpitations and no lightheadedness Gastrointestinal: no abdominal pain, no nausea and no vomiting Musculoskeletal: no back pain, no neck pain, no radicular pain, no joint pain and no myalgia Integumentary: no rash and no lesions Neurologic: + localized weakness; no gait abnormality, no generalized weakness, no tingling, no numbness, no tremor(s), no abnormal movements, no headache(s), no abnormal speech, no confusion and no memory loss Psychiatric: no depression, no irritability, no anxiety, no difficulty concentrating, no confusion and no hallucinations Endocrine: no fatigue and no flushing Hematologic / Lymphatic: no easy bleeding and no easy bruising Allergy / Immunological: no urticaria and no problem reported Exam (Neuro) Physical Exam: The patient is right-handed. The patient is awake, alert, and attentive. Speech is normal without any aphasia or dysarthria. The patient can name objects, repeat phrases, and has normal spontaneous speech. Mentation and thought processes are intact, with orientation to person, place and time, and normal fund of knowledge. Attention and concentration are normal. Mood and affect are normal and appropriate. General appearance and grooming are normal. Short and long-term memory are intact. The discs are sharp with positive venous pulsations bilaterally. There are no exudates, hemorrhages, or blood vessel changes seen. Pupils are 4 mm bilaterally and reactive to light. Extraocular eye muscles are intact without nystagmus. Visual acuity and visual edmonds seem normal grossly to confrontation. There are no deficits to sensation in the face in all 3 distributions of the fifth cranial nerve bilaterally. Corneal reflexes are positive bilaterally. Facial strength and symmetry was normal bilaterally. Hearing seems normal bilaterally. Palate moves well without asymmetry. There is normal sternocleidomastoid and trapezius (shoulder shrug) strength bilaterally. Tongue is midline with good strength bilaterally. Neck has a full range of motion without discomfort. Cervical, thoracic, and lumbar spine are nontender to palpation. Gait is narrow based, with good arm swing, turns, and stance. Balance is normal eyes open or closed. With outstretched arms there is no drift. There are no resting, postural, or action tremors. There is no ataxia with finger to nose testing. There is good facility in the hands. No other abnormal involuntary movements are noted. Motor strength is 5/5 diffusely in the right upper extremity, including deltoids, biceps, triceps, brachioradialis, wrist flexors and extensors, fireworks display specialist, and intrinsic hand muscles. left upper extremity is 5/5 proximally and 4/5 distally. Motor strength is 5/5 diffusely in the legs bilaterally including hip flexors, quadriceps, hamstrings, gastrocnemius, tibialis anterior, tibialis posterior, and Peroneii muscles. Toe extensors are normal and there is good bulk in the extensor digitorum brevis muscles bilaterally. The limbs have good tone without rigidity or spasticity. There is no atrophy noted in the muscles. Muscle bulk is normal, there is no tenderness to palpation, no myotonia to percussion, and no fasciculations seen. Sensory examination is intact to touch and pin throughout all 4 limbs diffusely. Reflexes are 1/4 in the biceps, triceps, brachioradialis, quadriceps, and Achilles tendons on the right. The left upper extremity reflexes are 2/4. The left lower extremity reflexes are 1/4. There is no clonus bilaterally. Toes are downgoing with plantar stimulation bilaterally. Peripheral pulses are present and of normal quality distally in all 4 limbs. There is no peripheral edema noted in the limbs. Results & Data ([facility]) Vital Signs (Past 12 Hours) Vital Signs Temp Pulse Resp BP Pulse Ox 01/31/21 05:14 75 19 146/88 H 94 01/31/21 04:14 66 17 153/101 H 95 01/31/21 04:00 37.2 C 01/31/21 03:14 62 17 130/82 94 01/31/21 02:14 73 20 146/91 H 93 01/31/21 01:14 61 18 129/86 95 01/31/21 00:14 75 19 151/93 H 92 01/31/21 00:00 37.1 C 61 PG Care Time/CCT Total # of Minutes Spent Total Time Spent with Patient: Total time spent is greater than 50% in coordination of care (as documented) at patient's floor/unit and/or counseling patient: Coding Level of Care Code 13233 Inpt Consult Level 5 Diagnoses Right sided cerebral hemisphere cerebrovascular accident (CVA) I63.9 DVT (deep venous thrombosis) I82.409 Third degree heart block I44.2 Time Spent (min) 90
[2021-01-31] MEDS: cefTRIAXone SODIUM 2,000 MG in DEXTROSE 5% 50 ML IV SCH (11:38)
[2021-01-31 12:05] LABS: Hepatitis B Surf Ag Rflx Conf Neg (Neg)
[2021-01-31 12:33] LABS: Hepatitis C IgG 13Yrs+Old_Rflx Neg (Neg)
[2021-01-31] MEDS: HEPARIN SODIUM/DEXTROSE 25,000 UNITS/500 ML BAG IV SCH (13:04)
[2021-01-31] MEDS ORDERED: OPTIRAY 320 100ml IV ONE (14:06)
--- NOTE | 2021-01-31 14:33 | XCELERA ---
[id number]
--- NOTE | 2021-01-31 14:39 | CT Scan Report ---
CT ANGIOGRAM OF THE CHEST CLINICAL HISTORY: Aortic atherosclerosis. COMPARISON STUDY: Chest x-ray dated 12/26/2020. TECHNIQUE: Following the IV administration of 96 cc of Optiray 320, CT angiogram of the chest was per formed from the thoracic inlet to the upper abdomen utilizing the dissection protocol. Images are rev iewed in the axial, sagittal, and coronal planes. 3-D MIPS images are created and assessed. IV contra st was administered without complication. A dose lowering technique was utilized adhering to the lazara macarena of OMAYRA. CT DOSE: 1307.38 mGy.cm FINDINGS: Thyroid: Imaged portions of the thyroid gland are normal in size and attenuation. Thoracic aorta: There is minimal atherosclerotic calcification of the thoracic aorta, which is normal in caliber and demonstrates bovine variant arch anatomy. No dissection is seen. The arch vessels are widely patent. Pulmonary vasculature: The pulmonary trunk is normal in caliber. There is pulmonary embolus within th e distal right main pulmonary artery. This extends into the right middle and right lower lobar branch es. Segmental and subsegmental pulmonary emboli are seen within branches of the left lower lobe pulmo nary artery. Heart: The heart is top normal in size and without pericardial effusion. There are coronary artery ca lcifications. Lungs and pleural spaces: Evaluation of the lung parenchyma is compromised by motion artifact. There is no airspace consolidation typical for pneumonia or pleural effusion. Scarring/atelectasis is seen at the lung bases. The trachea and central airways are clear. Mediastinum: There is no mediastinal lymphadenopathy. Aaliyah: Clear. Axillae: There is no axillary lymphadenopathy. Upper abdomen: There is evidence of multifocal hepatic metastatic disease. Lesions measure up to 3.2 cm in diameter. There are wedge-shaped perfusion defects in the spleen consistent with splenic infarc ts. A 1.6 cm low-attenuation mass lesion is seen in the pancreatic body on image #271. Prominent ena rohepatic nodes measure up to 9 mm. Skeletal structures: No lytic or blastic bony lesions are seen. Degenerative change is noted in the s houlders and thoracic spine. Soft tissues: There is a 5.7 cm intramuscular lipoma seen in the right upper back on image #112. IMPRESSION: 1. Bilateral pulmonary emboli. 2. There is minimal atherosclerotic calcification of the thoracic aorta as clinically queried. 3. There is no airspace consolidation or pleural effusion. 4. There is evidence of multifocal hepatic metastatic disease. 5. A 1.6 cm indeterminate lesion is seen in the body of the pancreas, suspicious for neoplasm. 6. There are splenic infarcts. Note that the presence of both pulmonary emboli and splenic infarcts s uggests a right to left shunt. 7. Additional findings as above. ACT 112: Negative or not required by law. Electronically signed by: Mino Alexandre M.D. 01/31/2021 2:37 PM
--- NOTE | 2021-01-31 14:43 | CT Scan Report ---
CT OF THE ABDOMEN AND PELVIS WITH CONTRAST CLINICAL HISTORY: assess for bony mets, alk phos is elevated COMPARISON STUDY: None. TECHNIQUE: Following IV administration of 96 mL of Optiray, axial images of the abdomen and pelvis we re obtained from the lung bases to the proximal femurs. Images were reviewed in the axial, sagittal, and coronal planes. IV contrast was administered without complication. Automated exposure control wa s utilized for the study. A dose lowering technique was utilized adhering to the principles of ALARA . Oral contrast was administered. FINDINGS: Please note that the chest CT will be reported separately. Multiple bilateral pulmonary emb aaliyah are better depicted on that examination. There is possible deep venous thrombus within the left s uperficial femoral and common femoral veins. Innumerable hepatic masses are present. These measure up to 4 cm. There is no biliary ductal dilatation. There is a pancreatic body lesion which measures nancy roximately 1.9 cm. Mild upstream pancreatic ductal dilatation is present. There is no peripancreatic infiltration. No abdominal or pelvic lymphadenopathy is present. There is no evidence for a bowel obs truction. A 4 x 3.7 cm wedge-shaped hypodensity within the posterior inferior aspect of the spleen naylor ggests a splenic infarct. Small hypodensities within each kidney favors small renal infarct. There is a cyst within lower pole of the right kidney. No suspicious lesions are identified within the visual ized skeletal structures. IMPRESSION: 1. Innumerable hepatic metastases, measuring up to 4 cm. 2. 1.9 cm pancreatic body lesion with associated pancreatic ductal dilatation. Although small, this m ay reflect the primary tumor and favors pancreatic adenocarcinoma. 3. Multiple pulmonary emboli and probable deep venous thrombus within the left femoral vein. 4. 4 x 3.7 cm splenic infarct. Suspected small bilateral renal infarcts. These findings raise the pos sibility of a right to left shunt. ACT 112: Negative or not required by law. Electronically signed by: Rene Perea M.D. 01/31/2021 2:41 PM
--- NOTE | 2021-01-31 15:04 | Cardiology Consultation ---
Date of Consultation January 31, 2021 Assessment & Plan (1) Third degree heart block: this is by report. We have not had documentation of high-degree heart block. His telemetry so far has demonstrated an occasional blocked PAC. Despite reports of heart block while wearing his monitor, he did not describe any symptoms. The monitor was originally prescribed in order to identify occult atrial fibrillation, possibly explaining his cerebral vascular events. he has a narrow complex QRS on his EKG which makes infra-Hisian disease less likely. He also has a screening test positive for Lyme disease and is being treated for presumed active Lyme disease. This could certainly play a role and any AV block documented on his monitor. Given the absence of symptoms and history of active Lyme disease, I think continuing telemetry monitoring currently is the only recommendation. Once the actual recordings are available for review we can determine if any additional intervention is warranted. (2) Elevated troponin: He did not present with symptoms or an EKG consistent with an acute coronary syndrome. He has not described any symptoms consistent with coronary insufficiency or angina. In fact, leading up to his recent events he was a very active individual who can perform high workload without symptoms. His echocardiogram did not demonstrate any regional wall motion abnormalities are reduced LV function which would be consistent with a recent infarct. It is very likely that his elevated biomarkers are either related to his cerebral vascular disease or potentially Lyme carditis. I would not recommend any invasive testing or noninvasive coronary evaluation at this time. (3) Aortic insufficiency: Mild on echocardiography. This can be followed over time. (4) CVA (cerebral vascular accident): The etiology of his cerebral vascular accidents is unclear. There does not appear to be an obvious cardiac source of emboli. He has had 2 ec hocardiograms both of which failed to demonstrate any evidence of a PFO. He has preserved LV systolic function and there has not been any identified intracardiac thrombus. He was being monitored for occult atrial fibrillation but this has not been identified. History of Present Illness Reason for Consultation: reported conduction disease Requesting Physician: Jevon Attending Physician: Abdulkadir Mitchell DO History of Present Illness the patient is a 65-year-old gentleman without a known history of cardiac disease has had multiple hospital evaluations over the past few months primarily for cerebral vascular disease. Patient related the story about heavy exertion along with his son while [facility] and [facility]. It seems to have occurred in early November. During that episode the patient did feel somewhat weak and dizzy. This was associated with some diaphoresis. Chest pain did not seem to be an element of this episode. Patient rested and the symptoms resolved without recurrence. However 2 weeks later he apparently suffered an embolic stroke while on vacation. Patient was placed on anti-platelet therapy. In route to his home he developed calf cramping which was later diagnosed as an acute DVT. Repeat scanning at that time suggested possible hemorrhagic conversion of his prior stroke and he was transferred to [facility] in [place] for more acute evaluation. Patient was placed on anticoagulation and discharged with outpatient rhythm monitoring. Patient has continued to have some symptoms of paresthesias involving the Left hand. There is also weakness involving the left hand. Yesterday he also developed some symptoms of paresthesias and an odd sensation in the right elbow. the patient had been seen in the outpatient setting recently. a report of his outpatient rhythm monitoring has been obtained which suggested there were periods of complete heart block. These are quantify but no other specific information regarding their timing or associated symptoms was available. In fact, the patient states that during his period of monitoring he did not have any symptoms. he denies symptoms of dizziness or lightheadedness. Outside the episode which occurred while camping in [facility], he has not reported this to be a symptom. He has never suffered syncope to his knowledge. Today he has been active individual until recently. He likes to ride a bicycle and can ride up to 30 miles daily without limiting symptoms. He denies symptoms of exertional chest discomfort or dyspnea. Allergies Allergy/AdvReac Type Severity Reaction Status Date / Time Bee sting Allergy Swelling Uncoded 01/30/21 11:48 of Lip/Tongue/Throat Home Medications Medication Instructions Recorded Confirmed Type aspirin 81 mg tablet,delayed 81 mg PO DAILY 01/01/21 01/30/21 History release apixaban 5 mg tablet (Eliquis) 5 mg PO BID #60 tab 01/22/21 01/30/21 Rx atorvastatin 40 mg tablet 20 mg PO DAILY #30 tab 01/28/21 01/30/21 Rx Patient History Medical History DVT (deep venous thrombosis) Late effects of CVA (cerebrovascular accident) Left leg pain Leg pain, bilateral Lightheadedness Right sided cerebral hemisphere cerebrovascular accident (CVA) Third degree heart block Surgical History No pertinent past surgical history Family History Father , age 77 of an [place] Myocardial infarction Social History Smoking Status: Former smoker Hx Alcohol Use: Yes Alcohol type: wine Hx Substance Use: No Preferred Language: Bulgarian Communication Ability: Effective Visual Impairment: Limited Hearing Ability: Normal [employer] Required: No Beliefs That Will Affect Care: None marital status: Current Living Situation: Spouse current occupational status: employed Feels Safe at Home: Yes Childhood Exposure to Second-Hand Smoke: No Dental Care, Regularly: Yes Physical Activity Frequency: Daily Seatbelt Use: always Sunscreen Use: Yes Assistive Devices: None Review of Systems Review of Systems: All systems reviewed & are unremarkable except as noted in HPI & below Some fevers or chills when initially evaluated during his vacation. The none recently. No muscle aches and pains. Physical Exam Physical Exam: The patient is alert and oriented. Mood and affect appeared normal. He answered all questions appropriately. HEENT: Pupils are equal and reactive to light and accommodation. Extraocular movements are intact. The sclerae are anicteric. Neuro: Cranial nerves intact. perhaps some word-finding difficulty. Some weakness involving the left hand. Neck: Patient's neck is supple. He has palpable carotid pulses bilaterally without bruits on auscultation. There is no evidence of jugular venous distention. The thyroid is not enlarged. Lungs: Clear to auscultation bilaterally With occasional crackle at the bases. He has good air movement without use of accessory muscles. No rales wheezes or rhonchi. Cardiac: Heart demonstrates a regular rate and rhythm. Normal S1 and S2. No murmurs on examination. Pulses: The patient has palpable radial pulses bilaterally that are equal in intensity Extremities: There was no evidence of hypoperfusion. There is no cyanosis or clubbing. There is no edema. Skin: I did not appreciate any rashes on examination today. Results & Data ([facility]) Vital Signs (Past 12 Hours) Vital Signs Temp Pulse Pulse Resp BP BP Pulse Ox 01/31/21 11:31 36.9 C 87 16 140/95 97 01/31/21 08:00 37.0 C 75 72 20 157/88 H 96 01/31/21 05:14 75 19 146/88 H 94 01/31/21 04:14 66 17 153/101 H 95 01/31/21 04:00 37.2 C 01/31/21 03:14 62 17 130/82 94 Laboratory Results Abnormal Lab Results 01/30/21 01/30/21 01/30/21 12:15 12:15 12:15 WBC RBC Hgb Hct MCV MCH MCHC RDW Std Deviation RDW Coeff of Neeru Plt Count MPV Immature Gran % (Auto) Neut % (Auto) Lymph % (Auto) [place] % (Auto) Eos % (Auto) Baso % (Auto) Neut # (Auto) Lymph # (Auto) [place] # (Auto) Eos # (Auto) Baso # (Auto) Immature Gran # (Auto) ESR 41 H APTT PTT Ratio Sodium Potassium Chloride Carbon Dioxide Anion Gap BUN Creatinine Est Cr Clr Drug Dosing Est GFR ( Amer) Est GFR (Non-Af Amer) BUN/Creatinine Ratio Glucose Estimat Average Glucose 134 Hemoglobin A1c 6.3 H Calcium Total Bilirubin AST ALT Alkaline Phosphatase Troponin I C-Reactive Protein 9.76 H Total Protein Albumin Globulin Albumin/Globulin Ratio Triglycerides Cholesterol LDL Cholesterol, Calc VLDL Cholesterol, Calc HDL Cholesterol Cholesterol/HDL Ratio Nasal Screen MRSA (PCR) Anaplasma Smear Lyme Disease IgG Ab Lyme Disease IgM Ab Hep Bs Antigen Hepatitis C Antibody 01/30/21 01/30/21 01/30/21 20:15 21:03 23:10 WBC RBC Hgb Hct MCV MCH MCHC RDW Std Deviation RDW Coeff of Neeru Plt Count MPV Immature Gran % (Auto) Neut % (Auto) Lymph % (Auto) [place] % (Auto) Eos % (Auto) Baso % (Auto) Neut # (Auto) Lymph # (Auto) [place] # (Auto) Eos # (Auto) Baso # (Auto) Immature Gran # (Auto) ESR APTT PTT Ratio Sodium Potassium Chloride Carbon Dioxide Anion Gap BUN Creatinine Est Cr Clr Drug Dosing Est GFR ( Amer) Est GFR (Non-Af Amer) BUN/Creatinine Ratio Glucose Estimat Average Glucose Hemoglobin A1c Calcium Total Bilirubin AST ALT Alkaline Phosphatase Troponin I 1.350 H* C-Reactive Protein Total Protein Albumin Globulin Albumin/Globulin Ratio Triglycerides Cholesterol LDL Cholesterol, Calc VLDL Cholesterol, Calc HDL Cholesterol Cholesterol/HDL Ratio Nasal Screen MRSA (PCR) Negative Anaplasma Smear Lyme Disease IgG Ab Positive A Lyme Disease IgM Ab Positive A Hep Bs Antigen Hepatitis C Antibody 01/31/21 01/31/21 01/31/21 03:24 03:24 03:24 WBC 8.72 RBC 4.08 L Hgb 11.8 L Hct 35.6 L MCV 87.3 MCH 28.9 MCHC 33.1 RDW Std Deviation 41.3 RDW Coeff of Neeru 12.8 Plt Count 238 MPV 9.1 Immature Gran % (Auto) 0.2 Neut % (Auto) 67.9 Lymph % (Auto) 19.6 [place] % (Auto) 8.7 Eos % (Auto) 3.4 Baso % (Auto) 0.2 Neut # (Auto) 5.91 Lymph # (Auto) 1.71 [place] # (Auto) 0.76 H Eos # (Auto) 0.30 Baso # (Auto) 0.02 Immature Gran # (Auto) 0.02 ESR APTT 55.8 H* PTT Ratio 2.1 Sodium 136 Potassium 4.1 Chloride 106 Carbon Dioxide 26 Anion Gap 4.0 BUN 11 Creatinine 0.75 Est Cr Clr Drug Dosing 118.2 Est GFR ( Amer) 113.2 Est GFR (Non-Af Amer) 97.6 BUN/Creatinine Ratio 14.5 Glucose 94 Estimat Average Glucose Hemoglobin A1c Calcium 8.4 L Total Bilirubin 1.0 AST 58 H ALT 46 Alkaline Phosphatase 526 H Troponin I 1.290 H* C-Reactive Protein Total Protein 6.7 Albumin 2.7 L Globulin 4.0 Albumin/Globulin Ratio 0.7 L Triglycerides 108 Cholesterol 156 LDL Cholesterol, Calc 99 VLDL Cholesterol, Calc 22 HDL Cholesterol 35 Cholesterol/HDL Ratio 5 Nasal Screen MRSA (PCR) Anaplasma Smear Lyme Disease IgG Ab Lyme Disease IgM Ab Hep Bs Antigen Hepatitis C Antibody 01/31/21 01/31/21 11:02 11:02 WBC RBC Hgb Hct MCV MCH MCHC RDW Std Deviation RDW Coeff of Neeru Plt Count MPV Immature Gran % (Auto) Neut % (Auto) Lymph % (Auto) [place] % (Auto) Eos % (Auto) Baso % (Auto) Neut # (Auto) Lymph # (Auto) [place] # (Auto) Eos # (Auto) Baso # (Auto) Immature Gran # (Auto) ESR APTT PTT Ratio Sodium Potassium Chloride Carbon Dioxide Anion Gap BUN Creatinine Est Cr Clr Drug Dosing Est GFR ( Amer) Est GFR (Non-Af Amer) BUN/Creatinine Ratio Glucose Estimat Average Glucose Hemoglobin A1c Calcium Total Bilirubin AST ALT Alkaline Phosphatase Troponin I C-Reactive Protein Total Protein Albumin Globulin Albumin/Globulin Ratio Triglycerides Cholesterol LDL Cholesterol, Calc VLDL Cholesterol, Calc HDL Cholesterol Cholesterol/HDL Ratio Nasal Screen MRSA (PCR) Anaplasma Smear See Comment Lyme Disease IgG Ab Lyme Disease IgM Ab Hep Bs Antigen Neg Hepatitis C Antibody Neg Diagnostic Findings Echocardiogram performed today revealed preserved LV systolic function without regional wall motion abnormalities. Some mild aortic insufficiency. Stage I diastolic dysfunction. No evidence of PFO. Echocardiogram performed in [place] on 12/27/2020: Normal LV systolic function with ejection fraction of 70 percent. No significant valvular disease. No evidence of PFO. EKG obtained the time admission revealed normal sinus rhythm with first-degree AV block. Review of his records from [place] suggests that his [place] interval is similar. PG Care Time/CCT Total # of Minutes Spent Total Time Spent with Patient: Total time spent is greater than 50% in coordination of care (as documented) at patient's floor/unit and/or counseling patient: Coding Level of Care Code 59032 Inpt Consult Level 5 Diagnoses Third degree heart block I44.2 Elevated troponin R77.8 Aortic insufficiency I35.1 CVA (cerebral vascular accident) I63.9 CVA mechanism: unspecified (1) CVA (cerebral vascular accident) CVA mechanism: unspecified Qualified Code(s): I63.9 - Cerebral infarction, unspecified
--- NOTE | 2021-01-31 16:44 | Internal Med Progress Note ---
Date of Service January 31, 2021 Assessment & Plan (1) CVA (cerebral vascular accident): Plan: Eliseo Caban is a 74 year-old man with a history of recent stroke and DVT, 3rd degree block, hypertension, and dyslipidemia presented with intermittent dizziness/headache/blurry vision and weakness in lateral aspect of R proximal upper limb. (1) Presumed metastatic cancer - symptoms on admission suspected to be secondary to CVA - tPA contraindicated because pt was outside of the window + on Eliquis - Neck CTA showed 2 new small acute-subacute infarcts within the right anterior frontal lobe and right posterior parietal lobe - Brain MRI showed >30 small infarcts within the bilateral frontal, parietal, occipital lobes and cerebellar hemispheres. 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 - further workup led to obtaining CT abdomen, which revealed a pancreatic mass and innumerable hepatic lesions highly concerning for malignancy - differential for primary cancer includes pancreatic, colon, kidney, others - discussed with patient and ; they have 4 children - continue heparin drip - continue neuro check Q2h - Ativan 1mg, Melatonin 3mg, Zofran 4mg -- patient processing new diagnosis tonight - liver ultrasound with biopsy tomorrow () CVA () 3rd degree AV block - captured on 14-day Zio Patch - considered secondary to ischemic disease vs non-ischemic age-related degeneration of cardiac conduction system vs Lyme disease - EKG on admission showed no abnormalities - Echo showed mild aortic regurgitation and mild concentric left ventricular hypertrophy. - Overnight telemetry showed an occasional blocked PAC, no high-degree heart blocks - Positive Lyme disease IgG and IgM - started IV doxycycline - Asymptomatic AV blocks, elevated troponin w/o ACS symptoms, positive Lyme suggest secondary to Lyme disease/carditis - continue external pacer pads - continue telemetry monitoring - consider NELLIE to rule out PFO/ASD tomorrow (4) Inadequate anticoagulation: - multiple emboli/infarcts on admission despite Eliquis - pt switched to Eliquis from Warfarin 1.5 weeks ago due to tolerance issues (developed LE maculopapular rashes + soreness) - considered clotting disorder, malignancy - Beta-2-GPI/Phosphatidylserine Ig/Anti-phospholipid/cardiolipin test still pending - suspect coagulation abnormalities secondary to malignancy - continue heparin drip - consider therapeutic Lovenox dosing as outpatient (1) Right sided cerebral hemisphere cerebrovascular accident (CVA): Plan: Mr. Caban is a 65 year old gentleman who recently suffered a bi-hemispheric ischemic stroke in November 2020, found to have two new small acute to subacute infarcts within the right anterior frontal lobe and right posterior parietal lobe. - etiology of ischemic strokes likely embolic given bihemispheric distribution. Suspect central cardiothromboembolic origin. Differential includes left atrial appendage clot (although no Afib noted on 14 day monitor), LV thrombus, PFO (although patient had negative bubble study with TTE at [facility]), and severe thrombotic disease of proximal ascending aorta - tpA contraindicated, as patient presented outside window, and he is currently on blood thinner. - TTE with bubble study ordered - if this is negative, consider NELLIE - consider Chest CTA to assess morphology/atherosclerotic state of ascending aorta - refrain from anti-hypertensive use, allowing for permissive HTN in acute post- stroke period - neuro checks Q2h - continue daily baby aspirin and increase atorvastatin to 40mg daily - neurology consult placed (2) Third degree heart block: Plan: - captured on [address] monitor - etiology uncertain: ischemic disease (plausible given elevated trop) vs. non- ischemic age-related degeneration of cardiac conduction system vs. secondary to lyme disease - external pacer pads placed - monitor on telemetry - cardiology consult placed - anticipate need for pacemaker placement - ID with LV thrombus? cardiac Lyme? (4) Inadequate anticoagulation: Plan: - new ischemic strokes noted on admission head CT despite Eliquis use - patient had tolerance issues with warfarin and has now failed Eliquis - antiphospholipid antibody testing ordered; consider additional clotting disorder work up if negative - placed on heparin drip - consider re-trial of warfarin vs. therapeutic Lovenox dosing as outpatient (5) DVT (deep venous thrombosis): Plan: - noted end of November 2020 of Left LE - on heparin drip (6) Dyslipidemia: Plan: - continue atorvastatin uped to 40 + daily baby ASA (7) Elevated AST (SGOT): Plan: - elevated to 68 on admission - suspect released from cardiac myocytes under strain (given co-existent elevated trop) - trend CMP Diet: NPO in the event of potential cath Dvt ppx: On heparin drip Dispo: PCU Code: Full, I discussed with patient Admission and Anticipated Discharge Date Admission Date: January 30, 2021 Supervising Physician Co-Signing Physician Notes I personally examined the patient and verified all berry points of history and exam, discussed case, and agree with decision making with Armand MONTOYA. Feeling overall okay. No new complaints. Extensive discussions in regards to CT findings. Later we were able to have his present, discussions revisited. Answered all questions to the best my ability. Vitals noted. In general he is awake and alert appears in shock in regards to our discussions, but no physical distress. HEENT normocephalic atraumatic mucous membranes moist. Breathing unlabored no accessory muscle use good effort. Skin shows no rashes no pallor or icterus. Neuro unchanged. Echo noted. CT reviewed. Hypercoagulable state, new diagnosis of metastatic malignancy, embolic strokes, paradoxical embolism/PE, splenic infarctgiven that it was probably a malignancy driven hypercoagulable state, and is now unfortunately less surprising that he was failing anticoagulation. For now heparin dripwould anticipate transition to Lovenox. Whenever he was on Coumadin before, he was bridged with Lovenox so he is comfortable with this. We discussed the unfortunate findings of a diffuse metastatic malignancy in detail. Pancreatic appears to be the most likely primary, given that he has never had a colonoscopy, colon could be possible. We discussed liver biopsy to try to determine primary, which will likely then dictate in large part the rest of his course. Offered empathy and support, answered questions to the best my abilityhe was definitely in a state of intellectual acceptance but emotional shockand therefore we will continue to revisit (talked to him twice this afternoon, on the phone once and [id number] once), will continue to answer questions and help plot out his plan. We will be reaching out to his PCP to ensure a smooth transition as well. Greater than 30 minutes [id number], first visit probably for 45 to a little after 5 PM, second visit about 6 PM to 6:30 PM. Subjective Patient was seen by bedside. He had no acute events overnight. Overall, Pt says that he feels fine and would just like to know what is going on. He is drinking water to get relief from phlegm secondary to his sinus drip. Otherwise, He no longer is experiencing dizziness/headache/blurry vision, and does not feel his R arm is quite as numb. He denies chest pain, fevers, chills, SOB or abdominal pain. Physical Exam Constitutional: Alert x3. Eyes: Clear conjunctiva. Sclera is nonicteric. Normal accomodation. Respiratory: Normal respiratory effort. Lungs are clear to auscultation. Cardiovascular: Normal rate and rhythm. Normal S1 and S2 sounds. No rubs, gallops or murmurs. Gastrointestinal (Abdomen): Soft and nontender. Normal bowel sounds. Musculoskeletal: Muscle strength: 4/5 L hand, otherwise 5/5 bilaterally. Skin: No rashes/lesions. Neurologic: Loss of sensation in R lateral aspect of proximal upper limb. Results & Data ([facility]) Vital Signs (Past 12 Hours) Vital Signs Temp Pulse Pulse Resp BP BP Pulse Ox 01/31/21 16:00 75 01/31/21 15:00 36.8 C 84 20 133/94 97 01/31/21 11:31 36.9 C 87 16 140/95 97 01/31/21 08:00 37.0 C 75 72 20 157/88 H 96 01/31/21 05:14 75 19 146/88 H 94 (1) CVA (cerebral vascular accident) CVA mechanism: unspecified Qualified Code(s): I63.9 - Cerebral infarction, unspecified
[2021-01-31] MEDS ORDERED: oxyCODONE HCL IR 5 MG TAB (IMMEDIATE RELEASE) PO PRN (17:50)
[2021-01-31] MEDS ORDERED: MELATONIN 3 MG TAB PO PRN (17:50)
[2021-01-31] MEDS ORDERED: LORazepam 1 MG TAB PO PRN (18:32)
--- NOTE | 2021-01-31 18:55 | Hospitalist Progress Note ---
Date of Service January 31, 2021 Assessment & Plan (1) Right sided cerebral hemisphere cerebrovascular accident (CVA): Plan: Mr. Caban is a 65 year old gentleman who recently suffered a bi-hemispheric ischemic stroke in November 2020, found to have two new small acute to subacute infarcts within the right anterior frontal lobe and right posterior parietal lobe. - etiology of ischemic strokes likely embolic given bihemispheric distribution. Suspect central cardiothromboembolic origin. Differential includes left atrial appendage clot (although no Afib noted on 14 day monitor), LV thrombus, PFO (although patient had negative bubble study with TTE at [facility]), and severe thrombotic disease of proximal ascending aorta - tpA contraindicated, as patient presented outside window, and he is currently on blood thinner. 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 non-i schemic age-related degeneration of cardiac conduction system vs. secondary to lyme disease - lyme testing ordered - external pacer pads placed - monitor on telemetry - cardiology consult placed - anticipate need for pacemaker placement (3) Elevated troponin: Plan: - trop 1.17 on admission - patient denies chest pain - EKG without acute ST segment changes or repolarization abnormalities - on heparin ggt - trend levels - cardiology consult placed - NPO in the event of potential catheterization (4) Inadequate anticoagulation: Plan: - new ischemic strokes noted on admission head CT despite Eliquis use - patient had tolerance issues with warfarin and has now failed Eliquis - antiphospholipid antibody testing ordered; consider additional clotting disorder work up if negative - placed on heparin drip - consider re-trial of warfarin vs. therapeutic Lovenox dosing as outpatient (5) DVT (deep venous thrombosis): Plan: - noted end of November 2020 of Left LE - on heparin drip (6) Dyslipidemia: Plan: - continue atorvastatin + daily baby ASA (7) Elevated AST (SGOT): Plan: - elevated to 68 on admission - suspect released from cardiac myocytes under strain (given co-existent elevated trop) - trend CMP Diet: NPO in the event of potential cath Dvt ppx: On heparin drip Dispo: PCU Code: Full, I discussed with patient Admission and Anticipated Discharge Date Admission Date: January 30, 2021 Review of Systems Constitutional: no fever and no chills Respiratory: no cough Cardiovascular: no chest pain and no dyspnea Gastrointestinal: no abdominal pain Neurologic: + localized weakness (left upper extremity ) and + paresthesia (right upper extremity ) + headache Results & Data Results & Data ([facility]) Vital Signs (Past 12 Hours) Vital Signs Temp Pulse Pulse Resp BP Pulse Ox 01/31/21 16:00 75 01/31/21 15:00 36.8 C 84 20 133/94 97 01/31/21 11:31 36.9 C 87 16 140/95 97 01/31/21 08:00 37.0 C 75 72 20 157/88 H 96
--- NOTE | 2021-01-31 19:41 | Billing Data ---
Date of Service January 31, 2021 Coding Level of Care Code 10500 Subseq Hosp Care Lvl 3
--- NOTE | 2021-01-31 19:41 | Billing Data ---
Date of Service January 31, 2021 Coding Level of Care Code 41030 Prolonged Care (int'l)
[2021-02-01] MEDS: DOXYCYCLINE HYCLATE 100 MG in DEXTROSE 5% 100 ML IV SCH ×2 (04:37→17:17)
[2021-02-01] MEDS: HEPARIN SODIUM/DEXTROSE 25,000 UNITS/500 ML BAG IV SCH ×2 (04:37→21:23)
[2021-02-01 05:40] LABS: Partial Thromboplastin Time 51.8 Seconds (21.0-31.0)
[2021-02-01] MEDS: ASPIRIN 81 MG ECTAB PO SCH (08:30)
[2021-02-01] MEDS: cefTRIAXone SODIUM 2,000 MG in DEXTROSE 5% 50 ML IV SCH (08:30)
[2021-02-01] MEDS: ATORVASTATIN 20 MG TAB PO SCH (08:31)
--- NOTE | 2021-02-01 11:12 | Neurology Progress Note ---
Date of Service February 01, 2021 Assessment & Plan (1) Right sided cerebral hemisphere cerebrovascular accident (CVA): (2) DVT (deep venous thrombosis): (3) Third degree heart block: Plan: This is a complicated patient neurologically. Patient suffered a right posterior frontal stroke in late November of this year resulting in some left jeff paresis. He still has some residual mild weakness and clumsiness in the distal left upper extremity. He has no other signs of stroke and no other upper motor neuron or lower motor neuron findings. He has no encephalopathy or meningeal signs. He had received tPA originally and had some hemorrhagic transformation of the stroke. Unfortunately he experience DVT after a long car ride home early December requiring anticoagulation. The CT with a hemorrhagic stroke was seen during that emergency room visit. On 81 milligram aspirin and Eliquis he came to the ER yesterday with some right upper extremity dysesthesias at the elbow. CT scan of the head seem to show new lesions of a subacute nature without hemorrhage. The original lesion was not hemorrhagic either. CT angiography showed no vascular anomalies of the head and neck but an MRI revealed multiple small scattered lesions in the cerebellar and cerebral hemispheres bilaterally of a new nature. Etiology of the FLU[employer]ING MODEL [employer] lesions are likely vascular, secondary to hypercoagulable state, from cancer. CT scans seem to reveal metastases to the liver and this is either colon cancer metastatic to liver with a pancreatic cyst, or pancreatic cancer with metastases to the liver. Either way believe a hypercoagulable state was induced. I doubt these represent scattered embolic strokes from the heart. I was concerned about possible [employer] Lyme disease and Lyme Western blot is pending. Interestingly, given the amount of these lesions he really is doing quite well neurologically, clinically. Recommendations: 1. Consider lumbar puncture, but I am not sure what this will add at this point. Awaiting Lyme Western blot. We could treat him for [employer] Lyme disease with doxycycline For 3-4 weeks. 2. Liver biopsy to evaluate the lesions. 3. Otherwise, I have no further neurologic testing or treatment recommendations to make at this time. Overall, I spent a total of 35 minutes with this case including review of records, review of CT scan films, direct evaluation the patient at bedside, and discussion of the case with the patient at bedside, RN at bedside, and Dr. Mitchell including differential diagnosis and treatment options. Admission and Anticipated Discharge Date Admission Date: January 30, 2021 Subjective Patient feels that his numbness in the right upper extremity is very improved. He still has weakness in the left upper extremity as before. He has no new issues. He has no headaches or dizziness. Echocardiogram was largely unremarkable. CEA was elevated at 4.[address] angiography of the chest as well as a CT of the abdomen and pelvis revealed lesions in the liver consistent with Mets. There was a 1.6 centimeter lesion in the body of the pancreas and they were splenic infarcts. Blood pressure is 150/103. Results & Data ([facility]) Vital Signs (Past 12 Hours) Vital Signs Temp Pulse Pulse Resp BP BP Pulse Ox 02/01/21 09:32 150/103 H 02/01/21 08:49 160/114 H 02/01/21 08:22 82 22 154/104 H 98 02/01/21 08:00 77 02/01/21 07:54 36.8 C 02/01/21 03:24 36.6 C 80 19 154/97 H 94 02/01/21 00:00 81 01/31/21 23:10 36.8 C 90 18 157/95 H 96 Exam (Neuro) Physical Exam: He is awake and alert. Speech is without aphasia or dysarthria. Mood is normal and affect appropriate. Thought processes are intact to conversation. Extraocular eye muscles are intact without nystagmus. He has no facial droop. Tongue is midline. Coordination is normal in the arms without tremor or ataxia. He has mild weakness in the left upper extremity distally as before. Otherwise strength in the right arm and legs are normal and symmetrical. PG Care Time/CCT Total # of Minutes Spent Total Time Spent with Patient: Total time spent is greater than 50% in coordination of care (as documented) at patient's floor/unit and/or counseling patient: Coding Level of Care Code 28441 Subseq Hosp Care Lvl 3 Diagnoses Right sided cerebral hemisphere cerebrovascular accident (CVA) I63.9 DVT (deep venous thrombosis) I82.409 Third degree heart block I44.2 Time Spent (min) 35
[2021-02-01] MEDS ORDERED: PROTAMINE SULFATE IV ONE (11:50)
[2021-02-01] MEDS ORDERED: DEXTROSE 5% IV ONE (11:50)
[2021-02-01 12:47] LABS: Partial Thromboplastin Ratio 1.1; Partial Thromboplastin Time 29.7 Seconds (21.0-31.0)
[2021-02-01 13:30] LABS: 18KDIGG Band REACTIVE; 23KDIGG Band NON-REACTIVE; 23KDIGM Band REACTIVE; 28KDIGG Band REACTIVE; 30KDIGG Band NON-REACTIVE; 39KDIGG Band REACTIVE; 39KDIGM Band REACTIVE; 41KDIGG Band REACTIVE; 41KDIGM Band NON-REACTIVE; 45KDIGG Band NON-REACTIVE; 58KDIGG Band REACTIVE; 66KDIGG Band NON-REACTIVE; 93KDIGG Band NON-REACTIVE; Lyme Antibodies, WB IgG POSITIVE (NEGATIVE); Lyme Antibodies, WB IgM POSITIVE (NEGATIVE)
--- NOTE | 2021-02-01 14:38 | Hospitalist Progress Note ---
Date of Service February 01, 2021 Assessment & Plan (1) CVA (cerebral vascular accident): Plan: Mr. Caban is a 65 year old man who is suspected have hepatic metastatic disease. 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 Less suspicious for colon and others. - CT chest and CT abdomen/pelvis found evidence of multifocal hepatic metastatic disease and a pancreatic mass. - Liver biopsy pending; APTT 29.7 and heparin reversed with protamine prior to procedure - Consider colonoscopy (2) Multisystem infarcts - presumed secondary to malignancy, as above. - Brain MRI found multiple (>30) small infarcts within the bilateral frontal, pa rietal, occipital lobes and cerebellar hemispheres - CT chest and CT abdomen/pelvis found bilateral PE, bilateral splenic infarcts - continue heparin drip upon return from liver biopsy - start Levanox on discharge (3) 3rd degree AV block - suspected secondary to Lyme infection - captured on 14-day Zio Patch - Tested positive for Lyme; Anaplasma Smear: negative; Babesia and A. phagocytophilum still pending - continue IV doxycline and IV ceftriaxone Admission and Anticipated Discharge Date Admission Date: January 30, 2021 Subjective Pt was seen at bedside. No acute event overnight. Discussed plans for the day with the patient, including the liver biopsy. Pt expressed that he would like to go home and became visibly overwhelmed/upset. Review of Systems Respiratory: Lungs clear to auscultation. Cardiovascular: Additional Comments: Normal rate and rhythm. Normal S1 and S2. Results & Data Results & Data ([facility]) Vital Signs (Past 12 Hours) Vital Signs Temp Pulse Pulse Resp BP BP Pulse Ox 02/01/21 12:18 109 H 20 142/92 H 94 02/01/21 09:32 150/103 H 02/01/21 09:31 100 H 18 150/103 H 94 02/01/21 08:49 160/114 H 02/01/21 08:22 82 22 154/104 H 98 02/01/21 08:00 77 02/01/21 07:54 36.8 C 02/01/21 03:24 36.6 C 80 19 154/97 H 94 (1) CVA (cerebral vascular accident) CVA mechanism: unspecified Qualified Code(s): I63.9 - Cerebral infarction, unspecified
--- NOTE | 2021-02-01 14:40 | Ultrasound Report ---
ULTRASOUND-GUIDED FINE-NEEDLE ASPIRATION LIVER CLINICAL HISTORY: Hepatic metastatic disease. Unknown primary. COMPARISON STUDY: Abdominal CT dated 01/31/2021. PROCEDURE: The risks, benefits, and alternatives to the procedure were discussed with the patient. Wr itten informed consent was obtained. The patient was placed supine in ultrasound, and a hypoechoic me tastatic lesion in the left lobe of the liver was localized by ultrasound and selected for fine needl e aspiration. The ventral upper abdominal wall was prepped and draped in the usual sterile fashion. 1 % lidocaine was used for local anesthetic. The lesion was aspirated under ultrasound guidance with 1 pass utilizing a 22-gauge spinal needle, and 3 additional passes performed utilizing 25-gauge needles . Specimens were reviewed by the pathologist in real-time and deemed adequate for diagnosis. The giulia l 2 specimens were submitted entirely for cell block. The patient tolerated the procedure well and le ft the department in satisfactory condition. IMPRESSION: Completed fine-needle aspiration of a left lobe liver lesion as above. ACT 112: Negative or not required by law. Electronically signed by: Mino Alexandre M.D. 02/01/2021 2:39 PM
--- NOTE | 2021-02-01 16:44 | Cardiology Progress Note ---
Date of Service February 01, 2021 Assessment & Plan (1) Third degree heart block: Plan: this is by report. no documented high-degree conduction disease on telemetry. No symptoms. Possibly related to acute Lyme disease for which she is being treated. At this point I do not believe there is any need for additional investigation. We can monitor him for symptoms suggestive of conduction disease or perform additional monitoring at some point. However, given his new imaging findings, his overall prognosis is questionable. (2) Elevated troponin: Plan: He did not present with symptoms or an EKG consistent with an acute coronary syndrome. I do not think we need to pursue this further in the absence of symptoms. (3) Aortic insufficiency: Plan: Mild on echocardiography. This can be followed over time. (4) CVA (cerebral vascular accident): Plan: It seems that he has been having some embolic events. There is some concern that he has some [id number] shunting given the splenic infarct noted on CT scanning. Two echocardiograms with "bubble study" did not demonstrate or suggest a PFO. However, a NELLIE would be more sensitive in this regard. 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 He will be anticoagulated in any regard. Admission and Anticipated Discharge Date Admission Date: January 30, 2021 Subjective this morning the patient was somewhat emotional regarding events that occurred yesterday evening. Abdominal imaging suggested metastatic lesions in the liver. There also appeared to be a splenic infarct. He has not report any new symptoms and in fact the right arm paresthesias which prompted his admission appear to have resolved. He still has some coldness in the left hand and some reduced function in that limb. He denies any sense of palpitation. He has not been ambulatory this morning. Review of Systems Review of Systems: Per HPI Physical Exam Physical Exam: The patient is alert and oriented. Mood and affect appeared normal. He answered all questions appropriately. HEENT: Pupils are equal and reactive to light and accommodation. Extraocular movements are intact. The sclerae are anicteric. Neuro: Cranial nerves intact. perhaps some word-finding difficulty. Some weakness involving the left hand. Cardiac: Heart demonstrates a regular rate and rhythm. Normal S1 and S2. No murmurs on examination. Pulses: The patient has palpable radial pulses bilaterally that are equal in intensity Extremities: There was no evidence of hypoperfusion. There is no cyanosis or clubbing. There is no edema. Skin: I did not appreciate any rashes on examination today. Results & Data ([facility]) Vital Signs (Past 12 Hours) Vital Signs Temp Pulse Resp BP BP Pulse Ox 02/01/21 16:13 97 H 20 149/95 H 95 02/01/21 16:00 98 H 02/01/21 15:58 100 H 19 143/91 H 94 02/01/21 15:43 100 H 18 140/92 94 02/01/21 15:28 96 H 21 138/93 96 02/01/21 15:13 100 H 20 123/89 96 02/01/21 14:58 96 H 18 129/92 95 02/01/21 14:43 96 H 26 H 149/100 H 95 02/01/21 14:26 98 H 17 149/94 H 93 02/01/21 12:18 109 H 20 142/92 H 94 02/01/21 09:32 150/103 H 02/01/21 09:31 100 H 18 150/103 H 94 02/01/21 08:49 160/114 H 02/01/21 08:22 82 22 154/104 H 98 02/01/21 08:00 77 02/01/21 07:54 36.8 C PG Care Time/CCT Total # of Minutes Spent Total Time Spent with Patient: Total time spent is greater than 50% in coordination of care (as documented) at patient's floor/unit and/or counseling patient: Coding Level of Care Code 38568 Subseq Hosp Care Lvl 2 Diagnoses Third degree heart block I44.2 Elevated troponin R77.8 Aortic insufficiency I35.1 CVA (cerebral vascular accident) I63.9 CVA mechanism: unspecified (1) CVA (cerebral vascular accident) CVA mechanism: unspecified Qualified Code(s): I63.9 - Cerebral infarction, unspecified
--- NOTE | 2021-02-01 19:13 | Discharge Summary ---
Date of Service February 01, 2021 Admission HPI Per Admitting Provider Mr. Caban is a 65 yo gentleman with a PMHx of recent ischemic cerebrovascular disease, DVT and dyslipidemia who presented for evaluation of intermittent dizziness/lightheadedness and R upper extremity numbness. These symptoms started 01/28/21 - he contacted his PCP's office today, who directed him to the ED for further evaluation. Of note, patient was on vacation with his family in [place] in November 2020. One morning while shaving, he noticed sudden onset left hand numbness/weakness/clumsiness. He went to a local emergency department, where a stroke work up was performed. He was found to have an ischemic right posterior frontal and left frontal infarct. He was treated with tPA. In-house neurology was consulted and felt as though his strokes were embolic in origin - of note he did have a TTE at outside hospital with a negative bubble study; nor were any arrhythmias captured on monitor during his stay at outside hospital. Subsequent cat scans of the head showed multiple punctate cerebrale hemorrhages (hemorrhagic transformation). He was discharged on a daily baby aspirin and sent home with a ziopatch (external residential monitor). The next day, he drove back up to [place] with his family - during the 10 hour car ride, he developed new onset left lower extremity pain. He had this evaluated immediately in the [facility] ED - doppler US was positive for multiple DVTs in the left lower extremity. He was started on a Lovenox bridge to coumadin. He was transferred to [facility] in the event this DVT would need manual intervention despite initiation of Lovenox - fortunately it did not. However, after being on coumadin for several days, he developed a rash (described as fine red ybarra) all over his bilateral lower legs, and bilateral leg pain. The leg discomfort began so significant that he was having a great deal of difficulty ambulating. For this reason, he was transitioned from coumadin to Eliquis 5mg, BID. Subsequently, he has received the results of the 14 day residential monitor report - which showed intermittent 3rd degree heart block, 2nd degree heart block, and SVT. He has not yet seen cardiology. He has been doing PT and OT for his residual left hand clumsiness/weakness. Mr. Caban insists he has been taking with Eliquis as directed, denying any missed doses. He was started on a high intensity statin (lipitor 40mg) by his PCP, however the dose was reduced over the past 10 days to 20mg every other day (PCP was trying to see if b/l lower extremity weakness was from statin rather than myalgia). He was previously on chlorthalidone for his blood pressure, but was able to come off this medication with lifestyle modifications. Family Hx: No known clotting disorders. Father of a massive heart attack at age 77. Social Hx: Remote smoking hx (smoked for 4 years, quit > 40 years ago). Social drinker (1-2 drinks per month). He denies any known tick bites this summer or spring. In the ED, he was febrile with a normal HR and mildly elevated BP at 141/89. His Hgb was mildly low at 13.1, CBC otherwise unremarkable. Kidney function and electrolytes were WNL. AST was elevated to 86, ALT was normal. Trop was elevated to 1.17. COVID 19 neg. EKG showing a 1st degree AV krishna block, no ST segment changes. Head CT showed no evidence of an acute hemorrhage. Head and Neck CTA showed evidence of 2 new small acute to subacute infarcts within the right anterior frontal lobe and right posterior parietal lobe. He was given 1 liter of NSS. Principal Diagnosis Embolic strokes, metastatic cancer. Discharge Exam In general he is awake and alert still appears a degree in emotional shock from what we have been talking about. But no physical distress. HEENT normocephalic atraumatic mucous membranes moist. Breathing unlabored no accessory muscle use good effort. Abdomen is soft nondistended nontenderexcept for right at the needle entry site of the biopsy, where he is mildly tender to deep palpation only. There is no bruising, no fullness, no crepitus, no tenderness in his right upper quadrant to even very deep palpation, essentially other than a tiny bit of pain at the biopsy site his exam is benign. Skin without rashes, pallor, icterus. Mental status intact. See Dr. Douglas note for more detailed neuro exam. Discharge Data Allergies Allergy/AdvReac Type Severity Reaction Status Date / Time Bee sting Allergy Swelling Uncoded 01/30/21 11:48 of Lip/Tongue/Throat Consultations 01/30/21 14:57 ED Decision to Admit Stat 01/30/21 20:17 Consult Cardiology Routine Consult Neurology Routine Ordered Studies 01/30/21 12:06 CT angio head w con Stat CT angio neck with con Stat CT head/brain wo con Stat 01/30/21 16:54 MR brain wo/w con Stat 01/31/21 10:55 CT abd pelvis oral and IV con Routine CT angio chest w con Routine 02/01/21 13:00 US FNA w/img 1st lesion Stat Hospital Course (1) CVA (cerebral vascular accident): Eliseo Caban is a 74 year-old man with a history of recent stroke and DVT, 3rd degree block, hypertension, and dyslipidemia presented with intermittent dizziness/headache/blurry vision and weakness in lateral aspect of R proximal upper limb. (1) Presumed metastatic cancer -Unearthed as part of a hypercoagulable work-up for embolic CVAunfortunately appears to have a diffusely metastatic cancer. Main differentials being pancreatic versus colon. Liver biopsy done today. Stable for home pending results, and then further treatment options. -We discussed risk/benefit as it related to home today versus tomorrow, and resuming his anticoagulation. We discussed is a delicate decision, given that he just had the biopsy, but he is clearly very actively at high risk for clotting. We discussed what to watch for as far as any abdominal symptoms/bruising/etc., and discussed there is a small but real possibility he might need to return to the hospital if any of this develops. Given all of the new diagnoses he needs to digest, and his clinical stability, he very much wanted to go home, which is extremely reasonable. Outpatient follow-up otherwise. As again below under CVA, risk/benefit favors cautiously resuming anticoagulation tonight. () CVA -Multiple areas that appear to be embolic CVA. -Initially broad work-up, unfortunately the work-up yielded that his situation is likely paradoxical emboli related to a hypercoagulable state related to his underlying metastatic malignancy that he was unaware of. -Anticoagulation with Lovenox () 3rd degree AV block -Captured on outpatient ambulatory monitoring, very brief. Given his positive Lyme, seems most likely if the complete heart block was real (which is questionable) that it would be Lyme related. He has shown no arrhythmias here, is safe/stable for home on p.o. doxycycline. See below otherwise. -Outpatient follow-up (4) failed anticoagulation -Unfortunately explained by metastatic malignancy. Lovenox. (5) DVT (deep venous thrombosis): -Related to above (6) Dyslipidemia: -Atorvastatin --- Extensive discussions with patient over the last 2 days given the new, and quite her scattering diagnoses. Offered empathy and support. Offered guidance. Biopsy is now pending. He is stable for homediscussed risks and benefits, and obviously he wants to be able to be home with his as he processes all of this. His PCP is aware of the situation will be reaching out for close follow- up as well. Total Time Total Time Spent Total Time Spent (In Minutes): Greater than 30 Discharge Plan Discharge Items Patient Disposition: Home - Self-Care Reason For Visit: STROKE SYMPTOMS Discharge Diagnosis: see below - multiple issues Activity: Resume your previous activity Activity Comment: i would recommend you not drive for the time being Non-emergency contact: Primary Care Provider and Oncologist Call non-emergency contact if: you have any medication questions and your symptoms worsen Follow-up/Referrals: Mino Payan MD [Primary Care Provider] - Diet: Regular Addtl Attending Provider Instructions: cancer -Unfortunately, our work-up for why you were forming so many clots showed us that your blood is quite prone to clotting because of a metastatic cancer. Right now, the main two possible areas of concern would be pancreatic cancer (th ere was about a 2 cm (slightly smaller than an inch) spot in your pancreas) or colon cancer (that would be the most common cancer that we would see that would start asymptomatic and then show up with spread to the liver). -The biopsy done today should give us the answer of where the tumor is coming from. Unfortunately biopsies often takes several days to be processed so that they can be read by pathology. Dr. Payan will be watching for those results, and going over them with you once they are back. Once the biopsies are back, I also expect him to be setting you up with oncology, but it is important to continue to keep in touch with Dr. Payan as you go through this, so that he can help guide you as well. -In addition to the biopsy, we added some lab work (CA 19-9, and CEA) that could help guide the diagnosis if the biopsy somehow came back nonspecific. -As it relates to the biopsy site, as we discussed, while it is a small risk for bleeding where they did the biopsy, the fact that you have had many recent clots and have a very active clotting risk, it is going to be safer to get you back on the anticoagulation sooner rather than later. To that end, we would recommend that you start the Lovenox (enoxaparin) again at bedtime tonight. Keep a close eye on the area where the biopsy was, as well as the right upper part of your belly. If you were to notice pain, bruising, or swelling in that area, we would want you seen sooner rather than later. strokes, clots -Unfortunately, in addition to clots causing the strokes, as we discussed, you have a clot in your leg, a few clots in your lungs, and it appears probably also a clot that went to your spleen. This is not a number of different problems happening at once, but rather all 1 process related to the cancer making your blood more prone to clotting. Fortunately you are showing surprisingly minimal symptoms to all of this. The main treatment is really to continue on blood thinnerstypically the Eliquis that you were on before works well in most situations, but when we see someone forming clots in spite of being on Eliquis, typically we will move to Lovenox because it is a blood thinner with a longer track record in this kind of situation. -For now, we would expect you to be on it indefinitely, dose in the morning and a dose at night, roughly 12 hours apart. lyme disease and heart rhythm issues -Your testing did come back positive for Lyme disease. Fortunately this part of the situation is quite easy to treat. We will utilize an antibiotic called doxy cycline. Because of concern that may have caused some cardiac rhythm issues, as well as the potential that some of what we are seeing in your central nervous system is Lyme related, we will treat for 3 to 4 weeks. (The prescription was sent for 4 weeks, [address] Dr. Payan will follow how you are doing, and possibly be undercut the course of treatment short.) -Your outpatient residential monitor showed potential periods of complete heart block, fortunately we did not see anything significant on the monitor while you were here. It is possible that the complete heart block seen on the monitor at home was "computer artifact," but even if it was real, in the face of Lyme, the heart block would be Lyme related until proven otherwise. This will be something Dr. Payan will continue to follow, and he may need you to see cardiology as an outpatient, but possibly not. -Doxycycline is generally very easy to tolerateit will be a pill in the morning and pill in the evening for the duration of treatment. -It can be a little upsetting to your stomach, so I would recommend taking it with food -While most people tolerated just fine, a small percentage of people can get very sun sensitiveto the point where 15 minutes of exposure can lead to a blistering sunburnso to be safe, while you are on the doxycycline, I would recommend that you wear sunblock and protective clothing. -Similarly, a very small percentage of people will get painful ulcers in their esophagusgenerally just if the pill gets stuck. To prevent this, when you take it, drink a full glass of water, and be upright for a good half hour afterwards. --- To be clearthese above-noted side effects are very rare, but because they can be fairly miserable, I warn everyone so that we can take some simple steps to keep them from happening to you. Pending Studies at Discharge: No Stand-Alone Forms: My [facility], Smoking Cessation Medications and DC Order Prescriptions: New enoxaparin 100 mg/mL syringe 100 mg subcut Q12H Qty: 60 RF: 0 doxycycline hyclate 100 mg capsule 100 mg PO BID 28 Days Qty: 56 RF: 0 Continued aspirin 81 mg tablet,delayed release (DR/EC) 81 mg PO DAILY RF: 0 atorvastatin 40 mg tablet 20 mg PO DAILY Qty: 30 RF: 0 Discontinued Eliquis 5 mg tablet 5 mg PO BID Qty: 60 RF: 2 Discharge Orders: Discharge Order (Routine); Ordered 02/01/21 Ordered By: Abdulkadir Montoya/Other Patient Handouts: A1C, 5 Steps for Eating Healthier Admission Data Admit Date/Time: 01/30/21 16:46 Attending Provider: Abdulkadir Mitchell Admit Provider: Abdulkadir Mitchell Primary Care Provider: Mino Payan Other Providers: Jimmy Maynard ; Eliazar Day ; Gaudencio Douglas Coding Level of Care Code D/C DAY MANAGEMENT >30 MINS Diagnoses CVA (cerebral vascular accident) I63.9 CVA mechanism: unspecified
--- NOTE | 2021-02-01 20:26 | CT Scan Report ---
CT OF THE HEAD WITHOUT CONTRAST CLINICAL HISTORY: stroke alert COMPARISON STUDY: Head CT, CTA of the head and MRI the brain January 30, 2021. CT DOSE: 1228.53 mGy.cm TECHNIQUE: Helical axial images of the head were obtained without IV contrast. Automated exposure con trol was utilized for the study. A dose lowering technique was utilized adhering to the principles o f ALARA. FINDINGS: No acute intracranial hemorrhage, midline shift or mass effect is present. Numerous infarct s are again noted. These are similar to prior head CT and MRI January 30, 2021. No significant mass effect is present. There is no evidence for hemorrhagic conversion. The ventricular system is unremar kable. The basal cisterns are patent. No extra-axial collections are present. There are no findings t o suggest acute dural sinus thrombosis or acute territorial infarct. No significant calvarial abnorma lities are present. Visualized portions of the sinuses and mastoid air cells are clear. IMPRESSION: No change in numerous infarcts since MRI and CT of January 30, 2021. No significant mas s effect. No acute intracranial hemorrhage. ACT 112: Negative or not required by law. Electronically signed by: Rene Perea M.D. 02/01/2021 8:25 PM
[2021-02-01] MEDS ORDERED: Heparin IV Adult Wt-Based Standard *NO* Bolus Protocol ONE (20:32)
--- NOTE | 2021-02-01 20:57 | Communication Note ---
Date of Service: February 01, 2021 Day team signed out that patient was to be discharged this evening. However, as nicole was being wheeled out to the lobby where his was waiting to pick him up, nursing noticed a new onset right facial droop, expressive aphasia, and R hand weakness. A stroke alert was called. He was sent for a non-contrast head CT scan, which showed no evidence of acute intracranial hemorrhage. On my exam, He did have a R facial droop. His expressive aphasia had resolved. Cranial nerves II-XII were intact, except for VII. He had full strength of bilateral triceps and biceps. 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 Strength testing in bilateral lower extremities was normal. Sensation in bilateral upper and lower extremities intact to gross touch. I did restart this heparin drip. Discharge order was canceled.
[2021-02-02 03:40] LABS: Partial Thromboplastin Ratio 1.8
[2021-02-02 03:42] LABS: Partial Thromboplastin Time 47.2 Seconds (21.0-31.0)
[2021-02-02] MEDS: DOXYCYCLINE HYCLATE 100 MG in DEXTROSE 5% 100 ML IV SCH ×2 (05:49→18:41)
[2021-02-02 06:05] LABS: Partial Thromboplastin Ratio 1.8
[2021-02-02 08:07] LABS: Hematocrit (blood only) 36.5 % (42-52); Mean Corpuscular Hemoglobin 28.3 pg (25-34); Mean Corpuscular Hgb Conc 32.9 g/dL (32-36); Mean Corpuscular Volume 86.1 fL (80-100); Mean Platelet Volume 9.3 fL (7.4-10.4); Platelet Count 245 K/uL (130-400); RDW Standard Deviation 40.6 fL (36.4-46.3); Red Blood Count 4.24 M/uL (4.7-6.1)
[2021-02-02 08:24] LABS: BUN Creatinine Ratio 8.4 (10-20); Calcium 8.8 mg/dl (8.5-10.1); Creatinine Clr Calc Pharmacy 105.5 ml/min; Est GFR (Non-African American) 93.2 ml/min; Potassium 3.7 mmol/L (3.5-5.1)
[2021-02-02] MEDS: cefTRIAXone SODIUM 2,000 MG in DEXTROSE 5% 50 ML IV SCH (08:42)
--- NOTE | 2021-02-02 08:42 | Hospitalist Progress Note ---
Date of Service February 02, 2021 Assessment & Plan (1) Metastatic cancer: Plan: Patient has hx stroke TIA DVT, hypercoagulable state likely secondary to cancer -chest CTA found hepatic metastatic disease -Abd/pelvis CTA with oral contrast demonstrated = Innumerable hepatic metastases, measuring up to 4 cm. 1.9 cm pancreatic body lesion with associated pancreatic ductal dilatation. Although small, this may reflect the primary tumor and favors pancreatic vinod ocarcinoma. Multiple pulmonary emboli and probable deep venous thrombus within the left femoral vein. 4 x 3.7 cm splenic infarct. Suspected small bilateral renal infarcts. -Carcinoembryonic Ag 4.9, CA 19-9 Antigen [id number] -liver biopsy performed 02/01 awaiting results -02/01: anticoagulation was held prior to liver biopsy and was to be resumed when patient returned home at bedtime. Patient was preparing for DC when he had new stroke-like symptoms (RUE numbness/weakness R sided facial droop) -CT head was without hemorrhage, MRI was not performed -Symptoms have almost completely resolved since, R facial droop remains -02/02: plan to discontinue heparin at 21:00 and transition to lovenox 100mg bid starting at 22:00 (2) Right sided cerebral hemisphere cerebrovascular accident (CVA): Plan: -recent bi-hemispheric ischemic stroke in November 2020, found to have two new small acute to subacute infarcts within the right anterior frontal lobe and right posterior parietal lobe. - etiology of ischemic strokes likely embolic given bihemispheric distribution. Suspect central cardiothromboembolic origin. Differential includes left atrial appendage clot (although no Afib noted on 14 day monitor), LV thrombus, PFO (negative bubble study with TTE at [facility]), and severe thrombotic disease of proximal ascending aorta -consulted cardiology - Brain MRI ordered = multiple scattered small infarcts seen throughout the cerebral and cerebellar hemispheres, etiology likely embolic - TTE with bubble study ordered - negative, NELLIE considered but would not record changer - lipid panel negative. 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 - lyme testing ordered, positive - started on doxycycline, ceftriaxone - monitor on telemetry (4) Elevated troponin: Plan: - trop 1.17 on admission peaked 1.35 9 downtrending - patient denies chest pain - EKG without acute ST segment changes or repolarization abnormalities - on heparin ggt (5) DVT (deep venous thrombosis): Plan: - noted end of November 2020 of Left LE - on heparin drip (6) Dyslipidemia: Plan: - continue atorvastatin + daily baby ASA (7) Inadequate anticoagulation: Plan: - new ischemic strokes noted on admission head CT -patient has tried eliquis in past but was transitioned to aspirin plavix, devel oped DVT - antiphospholipid antibody testing ordered - placed on heparin drip Admission and Anticipated Discharge Date Admission Date: January 30, 2021 Supervising Physician Co-Signing Physician Notes I personally examined the patient and verified all berry points of history and exam, discussed case, and agree with decision making with Dr Reinoso. Ongoing right facial droop, otherwise feels okay. No new neuro deficits. Discussed what happened last nightwe are both glad that the biopsy was done inpatient, given that his anticoagulation would have had to be held longer as an outpatient, and both glad that the event happened prior to him leaving. Unfortunately quite frightening that the event happened with his anticoagulation being interrupted for such a short period of time. Otherwise no new complaints. Vitals noted, in general he is awake and alert pleasant no distress. HEENT normocephalic atraumatic mucous membranes are moist. Breathing unlabored no accessory muscle use good effort. Skin shows no rashes no pallor or icterus. Neuro he does have a new right facial droop, no other new deficits noted. Skin without rashes, pallor, icterus. Hypercoagulable state, new diagnosis of malignancy, embolic strokes, paradoxical embolism/PE/splenic infarct, and now recurrent embolic eventhighly concerning, very delicate situation, very worried this is pancreatic cancer given the hypercoagulability and the CA 19-9. On heparinwhile under our watch, given how brittle his situation is, we will transition to Lovenox and follow to ensure he shows no signs of embolic event on therapeutic Lovenox. As long as that does not occur, then hopefully home late in the day tomorrow. Should he show any events, obviously stat head CT to rule out bleeding, but if he is throwing events on anything but heparin, then disposition will become much more difficult. Biopsy pending, outpatient PCP and oncology follow-up. Lyme diseasedoxycycline. If his rhythm issues (complete heart block on outpatient monitoring transiently) were at all real, likely Lyme would be the culprit. Outpatient monitoring of any suspicion of ongoing arrhythmia after treating Lyme. otherwise as above Subjective 65yo Male with PMH TIA DVT 3rd degree heart block HTN HLD here for stroke due to hypercoagulable state secondary to metastatic cancer. Patient was to be d/c yesterday but developed R sided facial droop numbness and weakness at the door, was restarted on heparin drip, patient currently doing well denies dizziness change in vision headache weakness, states R hand only has a little numbness remaining, L hand is weak due to stroke in November. Patient understands that his heart block is likely secondary to lyme disease. Patient is aware that his hypercoagulable state and most recent labs demonstrate that he has cancer, and his liver biopsy will help determin which cancer he has. Per nurse, patient has a new R sided facial droop since his TIA yesterday. Patient states he was not aware of the facial change. Review of Systems Review of Systems: Negative fever chills Negative headache dizziness blurry vision Negative chest pain palpitations SOB Negative nausea vomitting diarrhea constipation Negative numbness tingling rash swelling Physical Exam Physical Exam: General: Well appearing, age appropriate Heart: RRR, +S1 S2, no murmurs/gallops/rubs Lungs: cta b/l, no wheezes/rales/rhonchi Extremities: no swelling, no rashes, patient able to move all extremities against gravity Neuro:new R sided facial droop that resolves with movement, CN2-12 intact b/l Results & Data Results & Data ([facility]) Vital Signs (Past 12 Hours) Vital Signs Temp Pulse Pulse Resp BP BP Pulse Ox 02/02/21 07:36 36.9 C 72 17 148/90 H 94 02/02/21 03:59 36.8 C 89 20 162/92 H 97 02/02/21 00:28 85 19 142/86 H 95 02/02/21 00:21 36.9 C 02/02/21 00:13 77 18 146/85 H 95 02/01/21 23:58 85 18 137/84 96 02/01/21 23:43 79 17 120/74 95 02/01/21 23:28 81 18 139/83 94 02/01/21 23:13 80 16 131/77 94 02/01/21 22:58 81 18 151/93 H 97 02/01/21 22:43 85 18 148/107 H 96 02/01/21 22:28 82 18 164/105 H 97 02/01/21 22:13 89 19 164/106 H 96 02/01/21 21:48 88 18 151/95 H 95 02/01/21 21:43 84 18 148/104 H 97 02/01/21 21:14 89 16 143/106 H 98 02/01/21 21:01 36.7 C Laboratory Results 02/02/21 02/02/21 02/02/21 Range/Units 07:54 07:54 05:11 WBC 9.20 (4.8-10.8) K/uL RBC 4.24 L (4.7-6.1) M/uL Hgb 12.0 L (14.0-18.0) g/dL Hct 36.5 L (42-52) % MCV 86.1 (80-100) fL MCH 28.3 (25-34) pg MCHC 32.9 (32-36) g/dL RDW Std Deviation 40.6 (36.4-46.3) fL RDW Coeff of [place] 13.0 (11.5-14.5) % Plt Count 245 (130-400) K/uL MPV 9.3 (7.4-10.4) fL APTT 47.0 H* (21.0-31.0) Seconds PTT Ratio 1.8 Sodium 138 (136-145) mmol/L Potassium 3.7 (3.5-5.1) mmol/L Chloride 105 (98-107) mmol/L Carbon Dioxide 28 (21-32) mmol/L Anion Gap 5.0 (3-11) BUN 7 (7-18) mg/dl Creatinine 0.84 (0.6-1.4) mg/dl Est Cr Clr Drug Dosing 105.5 ml/min Est GFR ( Amer) 108.0 ml/min Est GFR (Non-Af Amer) 93.2 ml/min BUN/Creatinine Ratio 8.4 L (10-20) Glucose 113 H (70-99) mg/dl POC Glucose (70-99) mg/dl Calcium 8.8 (8.5-10.1) mg/dl CA 19-9 Antigen (<34) U/mL 02/02/21 02/01/21 02/01/21 Range/Units 03:12 22:58 20:26 WBC (4.8-10.8) K/uL RBC (4.7-6.1) M/uL Hgb (14.0-18.0) g/dL Hct (42-52) % MCV (80-100) fL MCH (25-34) pg MCHC (32-36) g/dL RDW Std Deviation (36.4-46.3) fL RDW Coeff of [place] (11.5-14.5) % Plt Count (130-400) K/uL MPV (7.4-10.4) fL APTT 47.2 H* (21.0-31.0) Seconds PTT Ratio 1.8 Sodium (136-145) mmol/L Potassium (3.5-5.1) mmol/L Chloride (98-107) mmol/L Carbon Dioxide (21-32) mmol/L Anion Gap (3-11) BUN (7-18) mg/dl Creatinine (0.6-1.4) mg/dl Est Cr Clr Drug Dosing ml/min Est GFR ( Amer) ml/min Est GFR (Non-Af Amer) ml/min BUN/Creatinine Ratio (10-20) Glucose (70-99) mg/dl POC Glucose 97 112 H (70-99) mg/dl Calcium (8.5-10.1) mg/dl CA 19-9 Antigen (<34) U/mL 02/01/21 Range/Units 09:15 WBC (4.8-10.8) K/uL RBC (4.7-6.1) M/uL Hgb (14.0-18.0) g/dL Hct (42-52) % MCV (80-100) fL MCH (25-34) pg MCHC (32-36) g/dL RDW Std Deviation (36.4-46.3) fL RDW Coeff of Neeru (11.5-14.5) % Plt Count (130-400) K/uL MPV (7.4-10.4) fL APTT (21.0-31.0) Seconds PTT Ratio Sodium (136-145) mmol/L Potassium (3.5-5.1) mmol/L Chloride (98-107) mmol/L Carbon Dioxide (21-32) mmol/L Anion Gap (3-11) BUN (7-18) mg/dl Creatinine (0.6-1.4) mg/dl Est Cr Clr Drug Dosing ml/min Est GFR ( Amer) ml/min Est GFR (Non-Af Amer) ml/min BUN/Creatinine Ratio (10-20) Glucose (70-99) mg/dl POC Glucose (70-99) mg/dl Calcium (8.5-10.1) mg/dl CA 19-9 Antigen 83404 H (<34) U/mL Diagnostic Findings Impressions Head CTA 01/30/21 12:[address], HEAD & NECK CTA HISTORY: Left-sided weakness. Lightheaded. TECHNIQUE: Multiaxial CT images of the head were performed both before and after the intravenous administration of contrast to evaluate the major cerebral vessels. Multiaxial CT images of the neck were also performed following the intravenous administration of contrast to evaluate the major cervical vessels. Maximum intensity projection images were also obtained. A dose lowering technique was utilized adhering to the principles of ALARA. COMPARISON: Head CT 01/01/2021. FINDINGS: NONCONTRAST HEAD CT: There is a 3.5 cm linear focus of encephalomalacia within the right posterior frontal lobe consistent with a old right MCA territory infarct. No acute hemorrhage or midline shift identified. There are 2 new hypodense foci seen within the right anterior frontal lobe on image 21 and right posterior parietal lobe on image 20 which measure 1.6 and 1.5 cm, respectively. These are consistent with acute to subacute infarcts. The ventricles are normal in size. The calvarium and skull base are intact. Paranasal sinuses and mastoid air cells are clear. There is an old small left frontal lobe infarct, unchanged. HEAD CTA: Visualized intracranial internal carotid arteries, distal vertebral arteries, and basilar artery are widely patent. There is no significant stenosis, occlusion, or aneurysm seen within the bilateral ACAs, MCAs, or sales representative [employer]. The major dural venous sinuses are patent. NECK CTA: The aortic arch and proximal great vessels are widely patent. There is no significant stenosis, occlusion, or dissection identified within the bilateral common carotid, internal carotid, or vertebral arteries. IMPRESSION: 1. There are 2 new small acute to subacute infarcts within the right anterior frontal lobe and right posterior parietal lobe. 2. Old right posterior frontal and left frontal infarcts are again noted. 3. No intracranial hemorrhage identified. 4. No significant stenosis, occlusion, or aneurysm within the [place]. 5. The bilateral cervical carotid and vertebral arteries are widely patent. ACT 112: Negative or not required by law. Electronically signed by: Rashawn Lynch M.D. 01/30/2021 1:51 PM Neck CTA 01/30/21 12:[address], HEAD & NECK CTA HISTORY: Left-sided weakness. Lightheaded. TECHNIQUE: Multiaxial CT images of the head were performed both before and after the intravenous administration of contrast to evaluate the major cerebral vessels. Multiaxial CT images of the neck were also performed following the intravenous administration of contrast to evaluate the major cervical vessels. Maximum intensity projection images were also obtained. A dose lowering technique was utilized adhering to the principles of ALARA. COMPARISON: Head CT 01/01/2021. FINDINGS: NONCONTRAST HEAD CT: There is a 3.5 cm linear focus of encephalomalacia within the right posterior frontal lobe consistent with a old right MCA territory infarct. No acute hemorrhage or midline shift identified. There are 2 new hypodense foci seen within the right anterior frontal lobe on image 21 and right posterior parietal lobe on image 20 which measure 1.6 and 1.5 cm, respectively. These are consistent with acute to subacute infarcts. The ventricles are normal in size. The calvarium and skull base are intact. Paranasal sinuses and mastoid air cells are clear. There is an old small left frontal lobe infarct, unchanged. HEAD CTA: Visualized intracranial internal carotid arteries, distal vertebral arteries, and basilar artery are widely patent. There is no significant stenosis, occlusion, or aneurysm seen within the bilateral ACAs, MCAs, or sales [employer]. The major dural venous sinuses are patent. NECK CTA: The aortic arch and proximal great vessels are widely patent. There is no significant stenosis, occlusion, or dissection identified within the bilateral common carotid, internal carotid, or vertebral arteries. IMPRESSION: 1. There are 2 new small acute to subacute infarcts within the right anterior frontal lobe and right posterior parietal lobe. 2. Old right posterior frontal and left frontal infarcts are again noted. 3. No intracranial hemorrhage identified. 4. No significant stenosis, occlusion, or aneurysm within the [place]. 5. The bilateral cervical carotid and vertebral arteries are widely patent. ACT 112: Negative or not required by law. Electronically signed by: Rashawn Lynch M.D. 01/30/2021 1:51 PM Brain MRI 01/30/21 16:54 Brain MRI WITH AND WITHOUT CONTRAST HISTORY: Dizziness. ischemic stroke TECHNIQUE: Multiplanar multisequence MRI of the brain was performed both before and after the intravenous administration of contrast. COMPARISON STUDY: Head CT 01/30/2021. Outside hospital brain MRI 12/27/2020. FINDINGS: Multiple scattered small foci of restricted diffusion seen within the bilateral frontal, parietal, and occipital lobes as well as the bilateral cerebellar hemispheres. There are greater than 30 scattered foci of restricted diffusion consistent with embolic infarcts. Dominant focus of restricted diffusion within the right frontal lobe measures 1.5 cm. These are subacute infarct demonstrate associated edema. Expected evolution of the subacute to chronic right posterior frontal infarct seen on the prior studies. The ventricles are normal in size. Susceptibility artifact within the old right posterior frontal lobe infarct measuring 1.7 cm. This likely corresponds to the resolving known hemorrhagic component. There is no mass or midline shift. The major vascular flow-voids at the skull base are well-maintained. The paranasal sinuses and mastoid air cells are clear. Incidental note is made of a small developmental venous anomaly within the right cerebral hemisphere. This is considered to be a normal variant. Small amount of linear increased T1 signal enhancement within the subacute to chronic right posterior frontal lobe infarct is consistent with the expected evolution. No additional areas of enhancement within the brain. IMPRESSION: 1. Interval development of multiple scattered small infarcts seen throughout the cerebral and cerebellar hemispheres. This is consistent with embolic infarcts. 2. Expected evolution within the subacute to chronic right posterior frontal infarct with a small resolving hemorrhagic component. ACT 112: Negative or not required by law. Electronically signed by: Rashawn Lynch M.D. 01/30/2021 6:58 PM Abdomen/Pelvis CT 01/31/21 10:55 CT OF THE ABDOMEN AND PELVIS WITH CONTRAST CLINICAL HISTORY: assess for bony mets, alk phos is elevated COMPARISON STUDY: None. TECHNIQUE: Following IV administration of 96 mL of Optiray, axial images of the abdomen and pelvis were obtained from the lung bases to the proximal femurs. Images were reviewed in the axial, sagittal, and coronal planes. IV contrast was administered without complication. Automated exposure control was utilized for the study. A dose lowering technique was utilized adhering to the principles of ALARA. Oral contrast was administered. FINDINGS: Please note that the chest CT will be reported separately. Multiple bilateral pulmonary emboli are better depicted on that examination. There is possible deep venous thrombus within the left superficial femoral and common femoral veins. Innumerable hepatic masses are present. These measure up to 4 cm. There is no biliary ductal dilatation. There is a pancreatic body lesion which measures approximately 1.9 cm. Mild upstream pancreatic ductal dilatation is present. There is no peripancreatic infiltration. No abdominal or pelvic lymphadenopathy is present. There is no evidence for a bowel obstruction. A 4 x 3.7 cm wedge-shaped hypodensity within the posterior inferior aspect of the spleen suggests a splenic infarct. Small hypodensities within each kidney favors small renal infarct. There is a cyst within lower pole of the right kidney. No suspicious lesions are identified within the visualized skeletal structures. IMPRESSION: 1. Innumerable hepatic metastases, measuring up to 4 cm. 2. 1.9 cm pancreatic body lesion with associated pancreatic ductal dilatation. Although small, this may reflect the primary tumor and favors pancreatic adenocarcinoma. 3. Multiple pulmonary emboli and probable deep venous thrombus within the left femoral vein. 4. 4 x 3.7 cm splenic infarct. Suspected small bilateral renal infarcts. These findings raise the possibility of a right to left shunt. ACT 112: Negative or not required by law. Electronically signed by: Rene Perea M.D. 01/31/2021 2:41 PM Chest CTA 01/31/21 10:55 CT ANGIOGRAM OF THE CHEST CLINICAL HISTORY: Aortic atherosclerosis. COMPARISON STUDY: Chest x-ray dated 12/26/2020. TECHNIQUE: Following the IV administration of 96 cc of Optiray 320, CT angiogram of the chest was performed from the thoracic inlet to the upper abdomen utilizing the dissection protocol. Images are reviewed in the axial, sagittal, and coronal planes. 3-D MIPS images are created and assessed. IV contrast was administered without complication. A dose lowering technique was utilized adher ing to the principles of ALARA. CT DOSE: 1307.38 mGy.cm FINDINGS: Thyroid: Imaged portions of the thyroid gland are normal in size and attenuation. Thoracic aorta: There is minimal atherosclerotic calcification of the thoracic aorta, which is normal in caliber and demonstrates bovine variant arch anatomy. No dissection is seen. The arch vessels are widely patent. Pulmonary vasculature: The pulmonary trunk is normal in caliber. There is pulmonary embolus within the distal right main pulmonary artery. This extends into the right middle and right lower lobar branches. Segmental and subsegmental pulmonary emboli are seen within branches of the left lower lobe pulmonary artery. Heart: The heart is top normal in size and without pericardial effusion. There are coronary artery calcifications. Lungs and pleural spaces: Evaluation of the lung parenchyma is compromised by motion artifact. There is no airspace consolidation typical for pneumonia or pleural effusion. Scarring/atelectasis is seen at the lung bases. The trachea and central airways are clear. Mediastinum: There is no mediastinal lymphadenopathy. Aaliyah: Clear. Axillae: There is no axillary lymphadenopathy. Upper abdomen: There is evidence of multifocal hepatic metastatic disease. Lesions measure up to 3.2 cm in diameter. There are wedge-shaped perfusion defects in the spleen consistent with splenic infarcts. A 1.6 cm low-attenuation mass lesion is seen in the pancreatic body on image #271. Prominent gastrohepatic nodes measure up to 9 mm. Skeletal structures: No lytic or blastic bony lesions are seen. Degenerative change is noted in the shoulders and thoracic spine. Soft tissues: There is a 5.7 cm intramuscular lipoma seen in the right upper back on image #112. IMPRESSION: 1. Bilateral pulmonary emboli. 2. There is minimal atherosclerotic calcification of the thoracic aorta as clinically queried. 3. There is no airspace consolidation or pleural effusion. 4. There is evidence of multifocal hepatic metastatic disease. 5. A 1.6 cm indeterminate lesion is seen in the body of the pancreas, suspicious for neoplasm. 6. There are splenic infarcts. Note that the presence of both pulmonary emboli and splenic infarcts suggests a right to left shunt. 7. Additional findings as above. ACT 112: Negative or not required by law. Electronically signed by: Mino Alexandre M.D. 01/31/2021 2:37 PM Aspiration 02/01/21 13:00 ULTRASOUND-GUIDED FINE-NEEDLE ASPIRATION LIVER CLINICAL HISTORY: Hepatic metastatic disease. Unknown primary. COMPARISON STUDY: Abdominal CT dated 01/31/2021. PROCEDURE: The risks, benefits, and alternatives to the procedure were discussed with the patient. Written informed consent was obtained. The patient was placed supine in ultrasound, and a hypoechoic metastatic lesion in the left lobe of the liver was localized by ultrasound and selected for fine needle aspiration. The ventral upper abdominal wall was prepped and draped in the usual sterile fashion. 1% lidocaine was used for local anesthetic. The lesion was aspirated under ultrasound guidance with 1 pass utilizing a 22-gauge spinal needle, and 3 additional passes performed utilizing 25-gauge needles. Specimens were reviewed by the pathologist in real-time and deemed adequate for diagnosis. The final 2 specimens were submitted entirely for cell block. The patient tolerated the procedure well and left the department in satisfactory condition. IMPRESSION: Completed fine-needle aspiration of a left lobe liver lesion as above. ACT 112: Negative or not required by law. Electronically signed by: Mino Alexandre M.D. 02/01/2021 2:[address] 02/01/21 20:06 CT OF THE HEAD WITHOUT CONTRAST CLINICAL HISTORY: stroke alert COMPARISON STUDY: Head CT, CTA of the head and MRI the brain January 30, 2021. CT DOSE: 1228.53 mGy.cm TECHNIQUE: Helical axial images of the head were obtained without IV contrast. Automated exposure control was utilized for the study. A dose lowering technique was utilized adhering to the principles of ALARA. FINDINGS: No acute intracranial hemorrhage, midline shift or mass effect is present. Numerous infarcts are again noted. These are similar to prior head CT and MRI January 30, 2021. No significant mass effect is present. There is no evidence for hemorrhagic conversion. The ventricular system is unremarkable. The basal cisterns are patent. No extra-axial collections are present. There are no findings to suggest acute dural sinus thrombosis or acute territorial infarct. No significant calvarial abnormalities are present. Visualized portions of the sinuses and mastoid air cells are clear. IMPRESSION: No change in numerous infarcts since MRI and CT of January 30, 2021. No significant mass effect. No acute intracranial hemorrhage. ACT 112: Negative or not required by law. Electronically signed by: Rene Perea M.D. 02/01/2021 8:25 PM Medications Administered Current Inpatient Medications Acetaminophen (Acetaminophen 325 Mg Tab) 650 mg PO Q4H PRN PRN Reason: Pain or Fever Stop: 03/01/21 20:16 Aspirin (Aspirin 81 Mg Ectab) 81 mg PO DAILY ZAFAR Stop: 03/02/21 08:59 Last Admin: 02/02/21 08:43 Dose: 81 mg Documented by: Atorvastatin Calcium (Atorvastatin 20 Mg Tab) 20 mg PO DAILY ZAFAR Stop: 03/02/21 08:59 Last Admin: 02/02/21 08:43 Dose: 20 mg Documented by: Doxycycline Hyclate 100 mg/ (Dextrose) 110 mls @ 50 mls/hr IV Q12H ZAFAR Stop: 02/10/21 04:59 Last Infusion: 02/02/21 08:00 Dose: 0 mls/hr Documented by: Ceftriaxone Sodium 2,000 mg/ (Dextrose) 70 mls @ 140 mls/hr IV DAILY [facility]; Protocol Stop: 02/10/21 08:59 Last Infusion: 02/02/21 09:15 Dose: Infused Documented by: Heparin Sodium/Dextrose (Heparin Sodium/Dextrose) 25,000 units in 500 mls @ 30 mls/hr IV .[id number] [facility]; Protocol Stop: 03/03/21 20:59 Last Admin: 02/02/21 08:43 Dose: 1,500 units/hr, 30 mls/hr Documented by: Lorazepam (Lorazepam 1 Mg Tab) 1 mg PO Q1H PRN PRN Reason: Anxiety Stop: 03/02/21 18:31 Melatonin (Melatonin 3 Mg Tab) 3 mg PO HS PRN PRN Reason: Sleep Stop: 03/02/21 17:49 Ondansetron HCl (Ondansetron Inj 2 Mg/Ml 2 Ml Vial) 4 mg IV Q6H PRN PRN Reason: Nausea Stop: 03/01/21 20:16 Oxycodone HCl (Oxycodone Hcl Ir 5 Mg Tab (Immediate Release)) 5 mg PO Q4H PRN PRN Reason: Pain Stop: 02/14/21 17:49 Polyethylene Glycol (Polyethylene (Miralax) 17 Gm Pack) 17 gm PO DAILY PRN PRN Reason: Constipation Stop: 03/01/21 20:16 Resident Activity Tracking Resident Involvement: Resident Care Provided Care Provided: Adult Hospital Medicine
[2021-02-02] MEDS: HEPARIN SODIUM/DEXTROSE 25,000 UNITS/500 ML BAG IV SCH (08:43)
[2021-02-02] MEDS: ATORVASTATIN 20 MG TAB PO SCH (08:43)
[2021-02-02] MEDS: ASPIRIN 81 MG ECTAB PO SCH (08:43)
--- NOTE | 2021-02-02 18:15 | Billing Data ---
Date of Service February 02, 2021 Coding Level of Care Code 31955 Subseq Hosp Care Lvl 3
--- NOTE | 2021-02-02 18:19 | Billing Data ---
Date of Service February 01, 2021 Coding Level of Care Code 76353 Subseq Hosp Care Lvl 3 Comment disregard d/c code, thanks
[2021-02-02] MEDS: ENOXAPARIN 100 MG/1ML SYR SQ SCH (21:04)
[2021-02-02 22:42] LABS: Babesia microti IgG <1:64 titer (<1:64); Hepatitis A Antibody IgM NON-REACTIVE (NON-REACTIVE); Hepatitis B Core Antibody IgM NON-REACTIVE (NON-REACTIVE)
[2021-02-03] MEDS: DOXYCYCLINE HYCLATE 100 MG in DEXTROSE 5% 100 ML IV SCH (04:05)
[2021-02-03 05:53] LABS: Hematocrit (blood only) 35.3 % (42-52); Hemoglobin 11.7 g/dL (14.0-18.0); Mean Corpuscular Hemoglobin 28.5 pg (25-34); Mean Corpuscular Hgb Conc 33.1 g/dL (32-36); Mean Corpuscular Volume 85.9 fL (80-100); Mean Platelet Volume 9.9 fL (7.4-10.4); Platelet Count 274 K/uL (130-400); RDW Coefficient of Variation 12.9 % (11.5-14.5); RDW Standard Deviation 40.5 fL (36.4-46.3); Red Blood Count 4.11 M/uL (4.7-6.1); White Blood Count 8.57 K/uL (4.8-10.8)
[2021-02-03 06:26] LABS: Calcium 8.6 mg/dl (8.5-10.1); Creatinine Clr Calc Pharmacy 107.6 ml/min; Est GFR (African American) 109.1 ml/min; Est GFR (Non-African American) 94.1 ml/min; Potassium 3.6 mmol/L (3.5-5.1)
--- NOTE | 2021-02-03 07:31 | Hospitalist Progress Note ---
Date of Service February 03, 2021 Assessment & Plan Admission and Anticipated Discharge Date Admission Date: January 30, 2021 Results & Data Results & Data ([facility]) Vital Signs (Past 12 Hours) Vital Signs Temp Pulse Pulse Resp BP Pulse Ox 02/03/21 07:26 36.5 C 85 17 136/88 93 02/03/21 06:00 12 02/03/21 02:42 36.9 C 82 18 135/83 93 02/02/21 23:38 37.0 C 90 18 136/83 93 02/02/21 23:30 77 02/02/21 20:21 37.2 C 81 18 142/89 H 97 Resident Activity Tracking Resident Involvement: Resident Care Provided Care Provided: Adult Hospital Medicine
[2021-02-03] MEDS: ENOXAPARIN 100 MG/1ML SYR SQ SCH (08:00)
[2021-02-03] MEDS: ATORVASTATIN 20 MG TAB PO SCH (08:02)
[2021-02-03] MEDS: ASPIRIN 81 MG ECTAB PO SCH (08:02)
[2021-02-03] MEDS: cefTRIAXone SODIUM 2,000 MG in DEXTROSE 5% 50 ML IV SCH (08:03)
--- NOTE | 2021-02-03 13:45 | Discharge Summary ---
Date of Service February 03, 2021 Admission HPI Per Admitting Provider Mr. Caban is a 65 yo gentleman with a PMHx of recent ischemic cerebrovascular disease, DVT and dyslipidemia who presented for evaluation of intermittent dizziness/lightheadedness and R upper extremity numbness. These symptoms started 01/28/21 - he contacted his PCP's office today, who directed him to the ED for further evaluation. Of note, patient was on vacation with his family in [place] in November 2020. One morning while shaving, he noticed sudden onset left hand numbness/weakness/clumsiness. He went to a local emergency department, where a stroke work up was performed. He was found to have an ischemic right posterior frontal and left frontal infarct. He was treated with tPA. In-house neurology was consulted and felt as though his strokes were embolic in origin - of note he did have a TTE at outside hospital with a negative bubble study; nor were any arrhythmias captured on monitor during his stay at outside hospital. Subsequent cat scans of the head showed multiple punctate cerebrale hemorrhages (hemorrhagic transformation). He was discharged on a daily baby aspirin and sent home with a ziopatch (external quality assurance monitor chassis). The next day, he drove back up to [place] with his family - during the 10 hour car ride, he developed new onset left lower extremity pain. He had this evaluated immediately in the [facility] ED - doppler US was positive for multiple DVTs in the left lower extremity. He was started on a Lovenox bridge to coumadin. He was transferred to [facility] in the event this DVT would need manual intervention despite initiation of Lovenox - fortunately it did not. However, after being on coumadin for several days, he developed a rash (described as fine red ybarra) all over his bilateral lower legs, and bilateral leg pain. The leg discomfort began so significant that he was having a great deal of difficulty ambulating. For this reason, he was transitioned from coumadin to Eliquis 5mg, BID. Subsequently, he has received the results of the 14 day quality assurance monitor chassis report - which showed intermittent 3rd degree heart block, 2nd degree heart block, and SVT. He has not yet seen cardiology. He has been doing PT and OT for his residual left hand clumsiness/weakness. Mr. Caban insists he has been taking with Eliquis as directed, denying any missed doses. He was started on a high intensity statin (lipitor 40mg) by his PCP, however the dose was reduced over the past 10 days to 20mg every other day (PCP was trying to see if b/l lower extremity weakness was from statin rather than myalgia). He was previously on chlorthalidone for his blood pressure, but was able to come off this medication with lifestyle modifications. Family Hx: No known clotting disorders. Father of a massive heart attack at age 77. Social Hx: Remote smoking hx (smoked for 4 years, quit > 40 years ago). Social drinker (1-2 drinks per month). He denies any known tick bites this summer or spring. In the ED, he was febrile with a normal HR and mildly elevated BP at 141/89. His Hgb was mildly low at 13.1, CBC otherwise unremarkable. Kidney function and electrolytes were WNL. AST was elevated to 86, ALT was normal. Trop was elevated to 1.17. COVID 19 neg. EKG showing a 1st degree AV krishna block, no ST segment changes. Head CT showed no evidence of an acute hemorrhage. Head and Neck CTA showed evidence of 2 new small acute to subacute infarcts within the right anterior frontal lobe and right posterior parietal lobe. He was given 1 liter of NSS. Admission Exam Per Admitting Provider Constitutional: WD/WN, vitals as above no acute distress Eyes: PERRL, conjunctivae normal, anicteric sclerae normal accommodation and + nystagmus (horizontal ) ENMT: external ear and nose normal, oropharynx normal Throat: uvula midline Neck: trachea midline, no thyromegaly Respiratory: normal respiratory effort, lungs clear to auscultation Cardiovascular: RRR, no murmur, no edema Heart Sounds: normal S1 and normal S2 Vessels: normal carotid upstroke; no carotid bruit Gastrointestinal (Abdomen): normal bowel sounds, soft, nontender, no hepatosplenomegaly Musculoskeletal: no cyanosis or clubbing, extremities motor strength 5/5 Head/Neck/Chest: normocephalic and head atraumatic Skin: no rashes, warm and dry Neurologic: PERRL, EOMI, accommodation nl, no face palsy, no dysarthria CN's II-XI intact bilaterally and moves all extremities; no focal motor deficits Speech / Cognition: normal speech Motor/Sensory: no tremor Coordination: + abnormal [id number]-hl-[id number] test (left side) Psychiatric: A+Ox3, euthymic affect Principal Diagnosis Hypercoagulable state secondary to metastatic cancer Discharge Exam Constitutional well developed and cooperative Eyes normal visual edmonds by confrontation; no scleral abnormality Respiratory normal respiratory effort Auscultation: lungs clear to auscultation bilaterally; no rales, no rhonchi and no wheezes Cardiovascular Rate/Rhythm: regular rate and regular rhythm Heart Sounds: normal S1 and normal S2; no gallop, no murmur and no cardiac rub Gastrointestinal (Abdomen) Inspection/Auscultation: abdomen normal to inspection and normal bowel sounds Percussion/Palpation: abdomen soft; abdomen nontender Musculoskeletal no cyanosis or clubbing, extremities motor strength 5/5 Skin no rashes, warm and dry Neurologic CN's II-XI intact bilaterally and moves all extremities Mild right facial droop Discharge Data Allergies Allergy/AdvReac Type Severity Reaction Status Date / Time Bee sting Allergy Swelling Uncoded 01/30/21 11:48 of Lip/Tongue/Throat Consultations 01/30/21 14:57 ED Decision to Admit Stat 01/30/21 20:17 Consult Cardiology Routine Consult Neurology Routine Ordered Studies 01/30/21 12:06 CT angio head w con Stat CT angio neck with con Stat CT head/brain wo con Stat 01/30/21 16:54 MR brain wo/w con Stat 01/31/21 10:55 CT abd pelvis oral and IV con Routine CT angio chest w con Routine 02/01/21 13:00 US FNA w/img 1st lesion Stat 02/01/21 20:06 CT head/brain wo con Stat Hospital Course (1) CVA (cerebral vascular accident): Eliseo Caban is a 74 year-old man with a history of recent stroke and DVT, 3rd degree block, hypertension, and dyslipidemia presented with intermittent dizziness/headache/blurry vision and weakness in lateral aspect of R proximal upper limb. (1) Presumed metastatic cancer -Unearthed as part of a hypercoagulable work-up for embolic CVAunfortunately appears to have a diffusely metastatic cancer. Main differentials being pancreatic versus colon. Liver biopsy done 02/01. -Patient originally to go home 02/01, was taken off heparin prior to biopsy and to start lovenox at home, unfortunately in the 8 hours off anticoagulation he had another CVA event in that time and was placed back on heparin, he developed a new right sided facial droop. On 02/02 he was transitioned from heparin to lovenox within 1 hour and tolerated well, no further events. -Stable for home pending results, and then further treatment options. (2) CVA -Multiple areas that appear to be embolic CVA. -Initially broad work-up, unfortunately the work-up yielded that his situation is likely paradoxical emboli related to a hypercoagulable state related to his underlying metastatic malignancy that he was unaware of. -Anticoagulation with Lovenox (3) 3rd degree AV block -Captured on outpatient ambulatory monitoring, very brief. Given his positive Lyme, seems most likely if the complete heart block was real (which is questionable) that it would be Lyme related. He has shown no arrhythmias here, is safe/stable for home on p.o. doxycycline. See below otherwise. -Outpatient follow-up (4) failed anticoagulation -Unfortunately explained by metastatic malignancy. Lovenox. (5) DVT (deep venous thrombosis): -Related to above (6) Dyslipidemia: -Atorvastatin --- Dr. Mitchell has had extensive discussions with patient over the last 4 days given the new, and quite scattering diagnoses. Offered empathy and support. Offered guidance. Biopsy is now pending. He is stable for homediscussed risks and benefits, and obviously he wants to be able to be home with his as he processes all of this. His PCP is aware of the situation will be reaching out for close follow-up as well. (2) Metastatic cancer: Total Time Total Time Spent Total Time Spent (In Minutes): <30 Discharge Plan Discharge Items Patient Disposition: Home - Self-Care Reason For Visit: STROKE SYMPTOMS Discharge Diagnosis: see below - multiple issues Activity: Resume your previous activity Activity Comment: i would recommend you not drive for the time being Non-emergency contact: Primary Care Provider and Oncologist Call non-emergency contact if: you have any medication questions and your symptoms worsen Follow-up/Referrals: Mino Payan MD [Primary Care Provider] - Diet: Regular Addtl Attending Provider Instructions: cancer -Unfortunately, our work-up for why you were forming so many clots showed us that your blood is quite prone to clotting because of a metastatic cancer. Right now, the main two possible areas of concern would be pancreatic cancer (there was about a 2 cm (slightly smaller than an inch) spot in your pancreas) or colon cancer (that would be the most common cancer that we would see that would start asymptomatic and then show up with spread to the liver). -The biopsy done Thursday should give us the answer of where the tumor is coming from. Unfortunately biopsies often takes several days to be processed so that they can be read by pathology. Dr. Payan will be watching for those results, and going over them with you once they are back. Once the biopsies are back, I also expect him to be setting you up with oncology, but it is important to continue to keep in touch with Dr. Payan as you go through this, so that he can help guide you as well. -In addition to the biopsy, we added some lab work (CA 19-9, and CEA) these unfortunately point to the main cancer likely being pancreatic. As we discussed, this is not what i would want to see at all. Conventional treatment will often buy 6-9 months before things come back aggressively, but for you - because you're young and healthy and likely able to tolerate treatment as well as anyone - I would definitely recommend getting treatment. If you start treatment and it's absolutely terrible (not likely, but possible) then it would be OK to step back and talk to [facility] and think about stopping. Since that's not likely to be the case though, it's absolutely worth trying to buy you that time. Also - since you're young and healthy otherwise, it's definitely worth getting treatment plans locally and seeing what might be the most cutting-edge. By reputation, [facility] in [place], [place], and [facility] in [place] tend to have really good reputations for being advanced with treatments for difficult cancers. However, when you get information from them, if it doesn't sound like what they could do is very different than what we could do locally, then I'd recommend having local treatment so that you have more time to spend being you, being with Will[facility], being with your kids, etc. I am so terribly sorry that you're going through this, and we'll be praying for you guys. You're in great hands with Dr Payan, but if there's ever anything I can do, I'm easy to track down. strokes, clots -Unfortunately, in addition to clots causing the strokes, as we discussed, you have a clot in your leg, a few clots in your lungs, and it appears probably also a clot that went to your spleen. This is not a number of different problems happening at once, but rather all 1 process related to the cancer making your blood more prone to clotting. Fortunately you are showing surprisingly minimal symptoms to all of this. The main treatment is really to continue on blood thinnerstypically the Eliquis that you were on before works well in most situations, but when we see someone forming clots in spite of being on Eliquis, typically we will move to Lovenox because it is a blood thinner with a longer track record in this kind of situation. -For now, we would expect you to be on it indefinitely, dose in the morning and a dose at night, roughly 12 hours apart. lyme disease and heart rhythm issues -Your testing did come back positive for Lyme disease. Fortunately this part of the situation is quite easy to treat. We will utilize an antibiotic called doxycycline. Because of concern that may have caused some cardiac rhythm issues, as well as the potential that some of what we are seeing in your central nervous system is Lyme related, we will treat for 3 to 4 weeks. (The prescription was sent for 4 weeks, but Dr. Payan will follow how you are doing, and possibly be undercut the course of treatment short.) -Your outpatient quality assurance monitor chassis showed potential periods of complete heart block, fortunately we did not see anything significant on the monitor while you were here. It is possible that the complete heart block seen on the monitor at home was "computer artifact," but even if it was real, in the face of Lyme, the heart block would be Lyme related until proven otherwise. This will be something Dr. Payan will continue to follow, and he may need you to see cardiology as an outpatient, but possibly not. -Doxycycline is generally very easy to tolerateit will be a pill in the morning and pill in the evening for the duration of treatment. -It can be a little upsetting to your stomach, so I would recommend taking it with food -While most people tolerated just fine, a small percentage of people can get very sun sensitiveto the point where 15 minutes of exposure can lead to a blistering sunburnso to be safe, while you are on the doxycycline, I would recommend that you wear sunblock and protective clothing. -Similarly, a very small percentage of people will get painful ulcers in their esophagusgenerally just if the pill gets stuck. To prevent this, when you take it, drink a full glass of water, and be upright for a good half hour afterwards. --- To be clearthese above-noted side effects are very rare, but because they can be fairly miserable, I warn everyone so that we can take some simple steps to keep them from happening to you. *I initially wrote these instructions when we first tried to get you home Thursday, and reviewed to edit it since you ended up having to stay longer. if there's anything that reads odd/sounds dated, it would be something that was specific from thursday that I accidentally missed as i was reviewing things, sorry/thanks!* Pending Studies at Discharge: No Stand-Alone Forms: My [facility], Smoking Cessation Medications and DC Order Prescriptions: New enoxaparin 100 mg/mL syringe 100 mg subcut Q12H Qty: 60 RF: 0 doxycycline hyclate 100 mg capsule 100 mg PO BID 28 Days Qty: 56 RF: 0 Continued aspirin 81 mg tablet,delayed release (DR/EC) 81 mg PO DAILY RF: 0 atorvastatin 40 mg tablet 20 mg PO DAILY Qty: 30 RF: 0 Discontinued Eliquis 5 mg tablet 5 mg PO BID Qty: 60 RF: 2 Discharge Orders: Discharge Order (Routine); Ordered 02/03/21 Ordered By: Abdulkadir Montoya/Other Patient Handouts: A1C, 5 Steps for Eating Healthier Admission Data Admit Date/Time: 01/30/21 16:46 Attending Provider: Abdulkadir Mitchell Admit Provider: Abdulkadir Mitchell Primary Care Provider: Mino Payan Other Providers: Jimmy Maynard ; Eliazar Day ; Gaudencio Douglas Other Interventions: Discharge Summary Assessment (RN) Last Done: 02/03/21 12:58 Supervising Physician Co-Signing Physician Notes I personally examined the patient and verified all berry points of history and exam, discussed case, and agree with decision making with Dr Reinoso. Feels the same. Right facial droop the same. No new symptoms. Feels up to going home. Vitals noted, in general he is awake and alert pleasant no distress. HEENT normocephalic atraumatic mucous membranes are moist. Breathing unlabored no accessory muscle use good effort. Skin shows no rashes no pallor or icterus. Neuro ongoing right facial droop, no other new deficits noted. Skin without rashes, pallor, icterus. Hypercoagulable state, new diagnosis of malignancy, embolic strokes, paradoxical embolism/PE/splenic infarct, and now recurrent embolic eventhighly concerning, very delicate situation, very worried this is pancreatic cancer given the hy percoagulability and the CA 19-9. Did okay with transition from heparin to Lovenoxno new events. Appears stable for home. Close outpatient PCP and oncology follow-up. Lyme diseasedoxycycline. If his rhythm issues (complete heart block on outpatient monitoring transiently) were at all real, likely Lyme would be the culprit. Outpatient monitoring of any suspicion of ongoing arrhythmia after tr eating Lyme. otherwise as above
--- NOTE | 2021-02-03 18:12 | Billing Data ---
Date of Service February 03, 2021 Coding Level of Care Code D/C DAY MANAGEMENT <30 MINS
[2021-02-04 07:45] LABS: B2 Glycoprotein IgA <2.0 U/mL (<20.0); B2 Glycoprotein IgG <2.0 U/mL (<20.0); B2 Glycoprotein IgM <2.0 U/mL (<20.0); Phosphatidylserine IgG <10 U/mL (<10); Phosphatidylserine IgM <25 U/mL (<25)
[2021-02-05 01:06] LABS: Ehrlichia chaff DNA Bld Negative (Negative)
== END 2021-02-03 13:49 | disposition home or self-care (01) | DRG 65 ==
LOC: ED 11:24 → 1E 16:46 → UNDODISIN 02-01 19:57 → 2S 02-02 18:11

== ENCOUNTER 2021-03-06 13:02 | Inpatient (IN) ==
[2021-03-06] MEDS ORDERED: SODIUM CHLORIDE 0.9% 1000ML 1,000 ML IV SCH (13:30)
[2021-03-06 14:13] LABS: Influenza A virus by PCR Negative (Negative); Influenza B virus by PCR Negative (Negative)
[2021-03-06 14:30] LABS: Hematocrit (blood only) 32.1 % (42-52); Hemoglobin 10.5 g/dL (14.0-18.0); Mean Corpuscular Hemoglobin 27.5 pg (25-34); Mean Corpuscular Hgb Conc 32.7 g/dL (32-36); Mean Platelet Volume 9.1 fL (7.4-10.4); Platelet Count 242 K/uL (130-400); RDW Coefficient of Variation 14.4 % (11.5-14.5); RDW Standard Deviation 42.8 fL (36.4-46.3); Red Blood Count 3.82 M/uL (4.7-6.1); White Blood Count 1.43 K/uL (4.8-10.8)
--- NOTE | 2021-03-06 14:45 | XRay Report ---
XR chest 1V portable HISTORY: 65 years-old Male SEPSIS acute sepsis COMPARISON: CTA chest 01/31/2021 TECHNIQUE: Portable AP view of the chest FINDINGS: Cardiac silhouette is upper limits of normal in size. Right IJ Cbabzm-g-Hptm catheter is noted with d istal tip in the expected location of the upper to mid SVC. Mild linear subsegmental left lung base a telectasis/scarring. No pneumothorax, pleural effusion, airspace consolidation or overt pulmonary danny ma. Degenerative changes of the shoulders and spine. IMPRESSION: No acute process. ACT 112: Negative or not required by law. The above report was generated using voice recognition software. It may contain grammatical, syntax o r spelling errors. Electronically signed by: Hayder Robles M.D. 03/06/2021 2:43 PM
[2021-03-06 15:05] LABS: Echinocytes 1+; Eosinophils # (auto) 0.01 K/uL (0-0.5); Eosinophils % (auto) 0.7 %; Giant Platelets 1+; Lymphocytes # (auto) 0.79 K/uL (1.2-3.4); Lymphocytes % (auto) 55.2 %; Neutrophils # (auto) 0.13 K/uL (1.4-6.5); Neutrophils % (auto) 9.1 %
[2021-03-06 15:09] LABS: Albumin Level 2.7 gm/dl (3.4-5.0); BUN Creatinine Ratio 11.2 (10-20); Calcium 8.8 mg/dl (8.5-10.1); Creatinine Clr Calc Pharmacy 75.6 ml/min; Est GFR (African American) 79.7 ml/min; Est GFR (Non-African American) 68.8 ml/min; Magnesium 1.9 mg/dl (1.8-2.4); Potassium 4.1 mmol/L (3.5-5.1)
[2021-03-06] MEDS ORDERED: CEFEPIME 2,000 MG/20 ML VIAL IV STA (15:09)
[2021-03-06 15:12] LABS: Albumin Globulin Ratio 0.6 (0.9-2); Bilirubin,Total 1.1 mg/dl (0.2-1); Globulin 4.7 gm/dl (2.5-4.0); Total Protein 7.4 gm/dl (6.4-8.2); Troponin I 0.154 ng/ml (0-0.045)
[2021-03-06 15:42] LABS: INR 1.3 (0.9-1.1); Partial Thromboplastin Ratio 1.6; Partial Thromboplastin Time 43.3 Seconds (21.0-31.0); Prothrombin Time 13.1 Seconds (9.0-12.0)
[2021-03-06 16:14] LABS: Appearance Urine Clear (Clear); Bilirubin Urine Negative (Negative); Blood Urine Negative (Negative); Color Urine Orange; Glucose Urine UA Negative (Negative); Ketones Urine Trace (Negative); Leukocyte Esterase Urine Negative (Negative); Nitrite Urine Negative (Negative); Protein Urine Negative (Negative); Specific Gravity Urine 1.012 (1.000-1.030); Urobilinogen Urine Negative (Negative)
[2021-03-06] MEDS ORDERED: VANCOMYCIN CONSULT ACTIVE PRN (17:05)
[2021-03-06] MEDS ORDERED: OPTIRAY 320 100ml IV ONE (17:10)
--- NOTE | 2021-03-06 17:28 | CT Scan Report ---
ABDOMEN AND PELVIS CT WITH IV CONTRAST CT DOSE: 575.78 mGy.cm HISTORY: Generalized abdominal pain, sepsis, diarrhea TECHNIQUE: Multiaxial CT images of the abdomen and pelvis were performed following the use of intrave nous contrast. A dose lowering technique was utilized adhering to the principles of ALARA. COMPARISON STUDY: Abdomen and pelvis CT 01/31/2021. FINDINGS: A few bibasilar linear densities consistent with subsegmental atelectasis. No pneumoperiton eum. No pneumatosis. No suspicious lytic or blastic osseous lesions. The bilateral pulmonary emboli a ppear to have improved/resolved in the interval. Increase in size in the innumerable hepatic metastas es with the dominant lesion now measuring 5.4 cm, previously measuring 4 cm. The main portal vein is patent. The gallbladder is unremarkable. The splenic infarcts have improved. The adrenal glands are u nremarkable. Redemonstration of the 2 cm necrotic lesion at the pancreatic body/tail. This is not sig nificantly changed. There is mild dilatation of the proximal pancreatic duct which is also unchanged. No hydronephrosis. Stable cysts within the lower pole the right kidney. The bilateral renal infarcts have almost completely resolved. 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 Th is may account for the upper abdominal varicosities. No retroperitoneal lymphadenopathy. Normal bladd er. The prostate gland remains enlarged. No pelvic lymphadenopathy. Normal caliber abdominal aorta. N o dilated loops of bowel to suggest an obstruction. Normal appendix. Fluid-filled colon. Mild to mode rate colonic wall thickening involving the majority of the transverse colon and descending colon. Thi s consistent with a nonspecific colitis but favors an infectious or inflammatory process. The mesente enriqueta vessels appear patent. IMPRESSION: 1. Mild to moderate thickening of the transverse colon and descending colon consistent with a nonspec ific colitis. This favors an infectious or inflammatory process. 2. Increase in size in the multiple hepatic metastases. 3. Interval improvement in the splenic and renal infarcts. The bilateral pulmonary emboli have also i mproved. 4. No significant change in the 2 cm pancreatic lesion. ACT 112: Negative or not required by law. Electronically signed by: Rashawn Lynch M.D. 03/06/2021 5:26 PM
--- NOTE | 2021-03-06 17:31 | History & Physical Report ---
Date of Service March 06, 2021 Assessment & Plan (1) Sepsis: Plan: SIRS-3 qSOFA-2 - Presumed abdominal source- colitis vs. typhlitis vs. Cdiff - CTA of abdomen and pelvis- - Meropenem 1GM IV q8 hours- start now - Vancomycin IV pharmacy to dose- start now - Lactate 2.0 - PCT 2 - Neutropenic and lymphopenic- Nuepogen 480mg sq daily - Blood cultures- pending - UA - negative (2) Neutropenic: Plan: As above - hematology oncology consult placed- appreciate assitance - Continue with Nuepogen (3) Colitis: Plan: As above- colitis vs. tyhplitis vs. cdiff - Mild to moderate thickening of the transverse colon and descending colon consistent with a nonspecific colitis. This favors an infectious or inflammatory process. - diarrhea resolved (4) Metastatic adenocarcinoma: Plan: Metastatic pancreatic cancer to the liver - 1.9 cm pancreatic body mass with splenic and renal infarcts noted on 01/31/21 - Liver biopsy completed 02/01/21- pathology- adenocarcinoma with MUCIN - interpreted as consistent with pancreaticobiliary or upper GI origin - Positive CK7 negative for CK 20 - patient undergoing FOLFIRINOX palliative chemo started cycle 1 of 4- Follows with LATRICE and Dr. Zambrano at [facility] - Hematology/Oncology consulted- appreciate assistance (5) CVA (cerebral vascular accident): Plan: CVA 01/30/2021- Multiple scattered small infarcts throughout cerebra land cerebellar - Continue statin - atorvastatin 20mg QHS - Continue asa 81 mg daily (6) Lyme disease: Plan: Occurred with concern of 3rd degree heart block - Lyme IgG and IgM were positive - was treated with Doxycycline and Rocephin- course completed last week. (7) Elevated troponin: Plan: Troponin I elevated on admission to 0.154- no complaints of anginal like symptoms - ECG with nonspecific t wave flattening in lateral leads - trend troponin I and ECG q 6 hours - This is likely demand from sepsis (8) DVT (deep venous thrombosis): Plan: DVT with PE - continue Lovenox 100mg subq BID (9) Dyslipidemia: Plan: Cotinue statin (10) Third degree heart block: Plan: History of- had zio placed on at the time - cardiology follow up- there has not been any further symptoms or ECG since treatment of lyme - no further work up initiated secondary to his co-morbid and acuity of his cancer dx/treatment History of Present Illness Primary Care Provider: Mino Payan MD 65 YOM with past medical history of: Metastatic adenocarcinoma, pancreatic ductal adenocarcinoma, 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 The patient has recently started FOLFIRINOX cycle 1 he was to proceed with 5FU therapy at home- but was some difficulties setting this up. He is planned for 4 cycles of FOLFIRINOX and last received this about 1.5 weeks ago, his next treatment was this upcoming week. The patient was doing well up until this past Thursday where he started having some indigestion and what he through was gas pains in his lower abdomen. This was followed with nausea without vomiting and 2-4 bouts of diarrhea. The stool was brown in color, loose and mostly water, he denies any blood or mucous in the stools and his abdominal pain has since improved. The patient started to have fevers yesterday into this morning that reports as >101.5. He denies any other coughs, joint or bone aches. In the EMD the patient had routine labs drawn, CXR done, blood cultures and urine cultures done. He was given a dose of Cefepime in the EMD. Patient was noted to be hypotensive on arrival and responded well to 1L of crystalloid. His labs revealed neutropenic and leukopenic with a lactate of 2.0 and PCT of 2.71. Hospitalist team was notified for admission. CT scan with IV contrast of the abdomen and pelvis was ordered, will send Cdiff with leukopenia and recent abx, although diarrhea has seemed to resolve with Imodium use at home. For his neutropenia and leukopenia discussed with Dr. Zambrano for Neupogen administration and will provide 480mg subq daily starting today for 3-5 days depending on results. Patient will be admitted for sepsis with possible typhlitis, will start Meropenem 1GM q8 hours and Vancomycin now. Continue to follow hemodynamics, Urine output, and biomarkers. For his DVT and PE- patient was originally on VKA and developed rash was transitioned to Eliquis and subsequently had PE- he is now on Lovenox 100mg sub q BID and will continue this. Patient has had his COVID vaccine and his COVID test on admission is: NEGATIVE as well as influenza A and B are negative Allergies Allergy/AdvReac Type Severity Reaction Status Date / Time bee venom protein (honey bee) Allergy Intermediate Swelling Verified 03/06/21 20:32 of Lip/Tongue/Throat Home Medications Medication Instructions Recorded Confirmed Type aspirin 81 mg tablet,delayed 81 mg PO DAILY 01/01/21 03/06/21 History release enoxaparin 100 mg/mL subcutaneous 100 mg SUBCUT Q12H #60 ml 02/27/21 03/06/21 Rx syringe atorvastatin 20 mg tablet 20 mg PO HS 03/06/21 03/06/21 History ondansetron HCl 8 mg tablet 8 mg PO Q8 PRN 03/06/21 03/06/21 History prochlorperazine maleate 10 mg 10 mg PO Q6 PRN 03/06/21 03/06/21 History tablet zolpidem 10 mg tablet 5 - 10 mg PO HS PRN 03/06/21 03/06/21 History Past Med/Surg History Medical History Chronic anticoagulation Detached retina DVT (deep venous thrombosis) Late effect of cerebrovascular accident Late effects of CVA (cerebrovascular accident) Left leg pain Leg pain, bilateral Lightheadedness Lyme disease Metastatic adenocarcinoma Right sided cerebral hemisphere cerebrovascular accident (CVA) Third degree heart block Surgical History Hx of cataract surgery No pertinent past surgical history Family History Father , age 77 of an MS Myocardial infarction Mother Essential tremor Grandmother (Maternal) Diabetes Grandfather (Paternal) Scoliosis Social History Smoking Status: Former smoker Second Hand Exposure: No; Hx Alcohol Use: Yes Alcohol type: wine Hx Substance Use: No Preferred Language: Singaporean Communication Ability: Effective Visual Impairment: Limited Hearing Ability: Normal Mine Engineer Required: No Beliefs That Will Affect Care: None marital status: Current Living Situation: Spouse current occupational status: employed Feels Safe at Home: Yes Childhood Exposure to Second-Hand Smoke: No Dental Care, Regularly: Yes Physical Activity Frequency: Daily Seatbelt Use: always Sunscreen Use: Yes Assistive Devices: None Review of Systems Review of Systems: REVIEW OF SYSTEMS: Constitutional: (+) fever, sweats or chills Eyes: No diplopia, no worsening or blurred vision ENT: normal hearing, no trouble swallowing Respiratory: No cough, sputum, dyspnea at rest or on exertion Cardiovascular: No chest pain, tightness or palpitations Abdomen: (+) pain, nausea, diarrhea or constipation, NO vomiting Musculoskeletal: No joint pain, calf pain, swelling Neurologic: (+) mild right sided facial droop, No weakness, numbness/tingling, or balance problems Psychiatric: No anxiety or depression Skin: No rash or itch Physical Exam Physical Exam: PHYSICAL EXAM: General: awake, alert, no apparent distress Head: Normocephalic, atraumatic ENT: PERRL, EOMI, no pharyngeal exudate, mucous membranes moist Neuro: AAO x 3, speech clear and appropriate, strength intact bilaterally 5/5, sensation intact and equal all extremities and dermatomes, no pronator drift, mild residual right sided facial droop Chest: equal rise and fall of the chest, no accessory muscle use, no heaves or thrills, Clear to auscultation, on room air, Cardiac: Regular rate and rhythm, telemetry reviewed, skin warm dry, cap refill <3 seconds, peripheral pulses +2 no JVD, no murmur, no JVD, no edema GI: NABS x 4 quadrants, soft, nontender to palpation, no rebound, guarding or tenderness, tympany on percussion : Spontaneously voiding, no pain, no CVA tenderness, Extremities: Normal inspection, no peripheral edema or erythema, calfs nontender to palpation Psych: Normal mood and affect Skin: no rash or erythema Results & Data Results & Data ([facility]) Vital Signs (Past 12 Hours) Vital Signs Temp Pulse Resp BP Pulse Ox 03/06/21 16:00 77 23 106/74 97 03/06/21 15:30 77 19 101/70 97 03/06/21 15:00 71 19 98 03/06/21 14:30 71 18 108/69 98 03/06/21 14:00 76 24 96/65 L 03/06/21 13:37 75 20 99 03/06/21 13:07 36.5 C 94 H 18 87/65 L 98 Laboratory Results Abnormal lab results 03/06/21 03/06/21 03/06/21 Range/Units 14:18 14:18 14:18 WBC 1.43 L (4.8-10.8) K/uL RBC 3.82 L (4.7-6.1) M/uL Hgb 10.5 L (14.0-18.0) g/dL Hct 32.1 L (42-52) % Neut # (Auto) 0.13 L* (1.4-6.5) K/uL Lymph # (Auto) 0.79 L (1.2-3.4) K/uL PT (9.0-12.0) Seconds INR (0.9-1.1) APTT (21.0-31.0) Seconds Sodium 129 L (136-145) mmol/L Glucose 121 H (70-99) mg/dl Total Bilirubin 1.1 H (0.2-1) mg/dl Alkaline Phosphatase 773 H (45-117) U/L Troponin I 0.154 H* (0-0.045) ng/ml Albumin 2.7 L (3.4-5.0) gm/dl Globulin 4.7 H (2.5-4.0) gm/dl Albumin/Globulin Ratio 0.6 L (0.9-2) Procalcitonin 2.71 H (0-0.5) ng/ml Urine Ketones (Negative) 03/06/21 03/06/21 Range/Units 15:08 16:03 WBC (4.8-10.8) K/uL RBC (4.7-6.1) M/uL Hgb (14.0-18.0) g/dL Hct (42-52) % Neut # (Auto) (1.4-6.5) K/uL Lymph # (Auto) (1.2-3.4) K/uL PT 13.1 H (9.0-12.0) Seconds INR 1.3 H (0.9-1.1) APTT 43.3 H (21.0-31.0) Seconds Sodium (136-145) mmol/L Glucose (70-99) mg/dl Total Bilirubin (0.2-1) mg/dl Alkaline Phosphatase (45-117) U/L Troponin I (0-0.045) ng/ml Albumin (3.4-5.0) gm/dl Globulin (2.5-4.0) gm/dl Albumin/Globulin Ratio (0.9-2) Procalcitonin (0-0.5) ng/ml Urine Ketones Trace H (Negative) Diagnostic Findings Chest X-Ray 03/06/21 13:17 XR chest 1V portable HISTORY: 65 years-old Male SEPSIS acute sepsis COMPARISON: CTA chest 01/31/2021 TECHNIQUE: Portable AP view of the chest FINDINGS: Cardiac silhouette is upper limits of normal in size. Right IJ Fpyhme-s-Tkps catheter is noted with distal tip in the expected location of the upper to mid SVC. Mild linear subsegmental left lung base atelectasis/scarring. No pneumothorax, pleural effusion, airspace consolidation or overt pulmonary edema. Degenerative changes of the shoulders and spine. IMPRESSION: No acute process. ACT 112: Negative or not required by law. The above report was generated using voice recognition software. It may contain grammatical, syntax or spelling errors. Electronically signed by: Hayder Robles M.D. 03/06/2021 2:43 PM Abdomen/Pelvis CT 03/06/21 16:[address] WITH IV CONTRAST CT DOSE: 575.78 mGy.cm HISTORY: Generalized abdominal pain, sepsis, diarrhea TECHNIQUE: Multiaxial CT images of the abdomen and pelvis were performed following the use of intravenous contrast. A dose lowering technique was utilized adhering to the principles of ALARA. COMPARISON STUDY: Abdomen and pelvis CT 01/31/2021. FINDINGS: A few bibasilar linear densities consistent with subsegmental atelectasis. No pneumoperitoneum. No pneumatosis. No suspicious lytic or blastic osseous lesions. The bilateral pulmonary emboli appear to have improved/resolved in the interval. Increase in size in the innumerable hepatic metastases with the dominant lesion now measuring 5.4 cm, previously measuring 4 cm. The main portal vein is patent. The gallbladder is unremarkable. The splenic infarcts have improved. The adrenal glands are unremarkable. Redemonstration of the 2 cm necrotic lesion at the pancreatic body/tail. This is not significantly changed. There is mild dilatation of the proximal pancreatic duct which is also unchanged. No hydronephrosis. Stable cysts within the lower pole the right kidney. The bilateral renal infarcts have almost completely resolved. 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 This may account for the upper abdominal varicosities. No retroperitoneal lymphadenopathy. Normal bladder. The prostate gland remains enlarged. No pelvic lymphadenopathy. Normal caliber abdominal aorta. No dilated loops of bowel to suggest an obstruction. Normal appendix. Fluid-filled colon. Mild to moderate colonic wall thickening involving the majority of the transverse colon and descending colon. This consistent with a nonspecific colitis but favors an infectious or inflammatory process. The mesenteric vessels appear patent. IMPRESSION: 1. Mild to moderate thickening of the transverse colon and descending colon con sistent with a nonspecific colitis. This favors an infectious or inflammatory process. 2. Increase in size in the multiple hepatic metastases. 3. Interval improvement in the splenic and renal infarcts. The bilateral pulmonary emboli have also improved. 4. No significant change in the 2 cm pancreatic lesion. ACT 112: Negative or not required by law. Electronically signed by: Rashawn Lynch M.D. 03/06/2021 5:26 PM Medications Administered Discontinued Medications Sodium Chloride (Nss 1000ml) 1,000 mls @ 999 mls/hr IV .Q1H1M ZAFAR Stop: 03/06/21 14:30 Last Admin: 03/06/21 14:40 Dose: Not Given Documented by: [id number] Cefepime HCl (Maxipime) 2,000 mg in 20 mls @ 5 mls/min IV NOW STA; Protocol Stop: 03/06/21 15:12 Last Admin: 03/06/21 16:00 Dose: 5 mls/min Documented by: [id number] Ioversol (Optiray 320 100ml) 91 ml IV ONCE ONE Stop: 03/06/21 17:11 Last Admin: 03/06/21 17:12 Dose: 91 ml Documented by: [id number] Home Medications aspirin 81 mg tablet,delayed release 81 mg PO DAILY 01/01/21 [History Confirmed 03/06/21] enoxaparin 100 mg/mL subcutaneous syringe 100 mg SUBCUT Q12H #60 ml 02/27/21 [Rx Confirmed 03/06/21] atorvastatin 20 mg tablet 20 mg PO HS 03/06/21 [History Confirmed 03/06/21] ondansetron HCl 8 mg tablet 8 mg PO Q8 PRN 03/06/21 [History Confirmed 03/06/21] prochlorperazine maleate 10 mg tablet 10 mg PO Q6 PRN 03/06/21 [History Confirmed 03/06/21] zolpidem 10 mg tablet 5 - 10 mg PO HS PRN 03/06/21 [History Confirmed 03/06/21] Active Medications Miscellaneous Information (Vancomycin Consult Active) 0 ea N/A UD PRN PRN Reason: Consult Stop: 04/05/21 17:04 ECG Additional Comments: Normal sinus rhythm Normal ECG When compared with ECG of 30-JAN-2021 11:52, Nonspecific T wave abnormality now evident in Lateral leads Code Status & VTE Plan Code Status CODE: FULL VTE: SCDS, Lovenox therapeutic dosing 100mg subq BID VTE Prophylaxis Plan VTE Prophylaxis will be ordered: Yes Supervising Physician Co-Signing Physician Notes Attending addendum: I have physically seen this patient, have supervised the JENARO's activities, and agree with the H&P unless as otherwise noted. Assessment and Plan: Neutropenia with sepsis- Neutropenic precautions Colitis versus typhlitis versus C. difficile CT of abdomen pelvis now ordered Empiric treatment vancomycin IV and meropenem IV per pharmacokinetic monitoring Follow blood cultures Give Neupogen 40 mg subcu daily, first dose this evening Follow serial CBC with differential, chemistry profile Consult hematology oncology Dr. Zambrano Metastatic pancreatic cancer to liver- Consult to Dr. Zambrano Remaining orders and notations as noted PG Care Time/CCT Total # of Minutes Spent Total Time Spent with Patient: Total time spent is greater than 50% in coordination of care (as documented) at patient's floor/unit and/or counseling patient: Coding Level of Care Code 10160 Initial Inpt Care Lvl 3 Diagnoses Sepsis A41.9 Neutropenic D70.9 Metastatic adenocarcinoma C79.9 CVA (cerebral vascular accident) I63.9 CVA mechanism: unspecified Lyme disease A69.20 Elevated troponin R77.8 DVT (deep venous thrombosis) I82.409 Dyslipidemia E78.5 Third degree heart block I44.2 Colitis K52.9 (1) CVA (cerebral vascular accident) CVA mechanism: unspecified Qualified Code(s): I63.9 - Cerebral infarction, unspecified
--- NOTE | 2021-03-06 17:57 | Electrocardiogram Report ---
Test Reason : Blood Pressure : / mmHG Vent. Rate : 075 BPM Atrial Rate : 075 BPM P-R Int : 196 ms QRS Dur : 080 ms QT Int : 378 ms P-R-T Axes : 014 -03 -06 degrees QTc Int : 422 ms Normal sinus rhythm Normal ECG When compared with ECG of 30-JAN-2021 11:52, Nonspecific T wave abnormality now evident in Lateral leads Confirmed by Wayne Jackson [id number]) on 03/06/2021 5:57:25 PM Referred By: Confirmed By:Donnie Jackson
[2021-03-06] MEDS ORDERED: VANCOMYCIN HCL 2,250 MG in SODIUM CHLORIDE 0.9% 500 ML IV ONE (18:15)
--- NOTE | 2021-03-06 18:27 | Emergency Department Note ---
History of Present Illness General Chief complaint: Fever Stated complaint: FEVER, CHILLS Time Seen by Provider: 03/06/21 13:17 History of Present Illness Provider complaint: Fever Onset (ago): day(s) 2 Maximum Pain Intensity: 0 Associated symptoms: + fever/chills (T-max 101) and + nausea/vomiting; no chest pain, no cough, no headaches, no rash, no shortness of breath, no syncope or no weakness 65-year-old male on chemotherapy with Dr. Zambrano for metastatic pancreatic cancer presents to the emergency department for fever. Patient reports his fever began last night, T-max 101. Patient reports yesterday he had nausea and vomiting. One episode of vomiting. No hematemesis coffee-ground emesis or bilious vomiti ng. No hematuria dysuria. No chest pain or difficulty breathing. Patient is currently on chemotherapy. Patient has had third booster shot for COVID-19. Not vaccinated against influenza. Home Medications Medication Instructions Recorded Confirmed Type aspirin 81 mg tablet,delayed 81 mg PO DAILY 01/01/21 03/06/21 History release enoxaparin 100 mg/mL subcutaneous 100 mg SUBCUT Q12H #60 ml 02/27/21 03/06/21 Rx syringe atorvastatin 20 mg tablet 20 mg PO HS 03/06/21 03/06/21 History ondansetron HCl 8 mg tablet 8 mg PO Q8 PRN 03/06/21 03/06/21 History prochlorperazine maleate 10 mg 10 mg PO Q6 PRN 03/06/21 03/06/21 History tablet zolpidem 10 mg tablet 5 - 10 mg PO HS PRN 03/06/21 03/06/21 History Allergies Allergy/AdvReac Type Severity Reaction Status Date / Time Bee sting Allergy Swelling Uncoded 03/06/21 16:39 of Lip/Tongue/Throat Past Med/Surg History Medical History Chronic anticoagulation Detached retina DVT (deep venous thrombosis) Late effect of cerebrovascular accident Late effects of CVA (cerebrovascular accident) Left leg pain Leg pain, bilateral Lightheadedness Lyme disease Metastatic adenocarcinoma Right sided cerebral hemisphere cerebrovascular accident (CVA) Third degree heart block Surgical History Hx of cataract surgery No pertinent past surgical history Family History Father , age 77 of an OR Myocardial infarction Mother Essential tremor Grandmother (Maternal) Diabetes Grandfather (Paternal) Scoliosis Social History Smoking Status: Former smoker Hx Alcohol Use: Yes Alcohol type: wine Hx Substance Use: No Preferred Language: Polish Communication Ability: Effective Visual Impairment: Limited Hearing Ability: Normal Linoleum Layer Required: No Beliefs That Will Affect Care: None marital status: Current Living Situation: Spouse current occupational status: employed Feels Safe at Home: Yes Childhood Exposure to Second-Hand Smoke: No Dental Care, Regularly: Yes Physical Activity Frequency: Daily Seatbelt Use: always Sunscreen Use: Yes Assistive Devices: None Review of Systems A total of 10 systems reviewed and were otherwise negative Physical Exam Vital Signs Vital Signs - 24 hr 03/06/21 13:07 03/06/21 13:37 03/06/21 14:00 Temperature 36.5 C Temperature Source Oral Pulse Rate 94 H 75 76 Pulse Rate from SpO2 Sensor 75 Respiratory Rate 18 20 24 Blood Pressure 87/65 L 96/65 L Blood Pressure Mean 72 75 Pulse Oximetry 98 99 Oxygen Delivery Method Room Air Room Air Room Air Sepsis Recent Fever Within 48 Hours No Sepsis New/Unexplained Change in Mental Status No Sepsis Action Taken by Nursing No Action Required 03/06/21 14:30 03/06/21 15:00 03/06/21 15:30 Temperature Temperature Source Pulse Rate 71 71 77 Pulse Rate from SpO2 Sensor 72 70 77 Respiratory Rate 18 19 19 Blood Pressure 108/69 101/70 Blood Pressure Mean 82 80 Pulse Oximetry 98 98 97 Oxygen Delivery Method Room Air Room Air Room Air Sepsis Recent Fever Within 48 Hours Sepsis New/Unexplained Change in Mental Status Sepsis Action Taken by Nursing 03/06/21 16:00 Temperature Temperature Source Pulse Rate 77 Pulse Rate from SpO2 Sensor 77 Respiratory Rate 23 Blood Pressure 106/74 Blood Pressure Mean 84 Pulse Oximetry 97 Oxygen Delivery Method Room Air Sepsis Recent Fever Within 48 Hours Sepsis New/Unexplained Change in Mental Status Sepsis Action Taken by Nursing Physical Exam GENERAL: He is oriented to person, place, and time. He appears well-developed and well-nourished. He does not appear distressed. HENT: Exam performed. - Head: Normocephalic and atraumatic. - Right Ear: External ear normal. No mastoid tenderness. - Left Ear: External ear normal. No mastoid tenderness. - Mouth/Throat: The oropharynx is clear and moist. No trismus in the jaw. No dental abscesses or uvula swelling. No oropharyngeal exudate or tonsillar abscesses. EYES: Conjunctivae and EOM are normal. Pupils are equal, round, and reactive to light. Right eye exhibits no discharge. Left eye exhibits no discharge. No scleral icterus. NECK: Normal range of motion. Neck supple. No JVD present. No spinous process tenderness present. No carotid bruit present. No rigidity. No tracheal deviation and normal range of motion present. No Brudzinski's sign and no Kernig's sign noted. CV: Normal rate, regular rhythm, normal heart sounds and intact distal pulses. There is no peripheral edema. Palpable radial pulses bue. PULM/CHEST: Effort normal and breath sounds normal. No respiratory distress. No stridor. He has no wheezes. He has no rales. - Chest Wall: He exhibits no tenderness. ABD: The abdomen is soft. Bowel sounds are normal. He has no distension. No mass is present. There is no tenderness. There is no rebound, no guarding, no Walls's sign and no tenderness at McBurney's point. Rovsig negative. MUSC/SKEL: Normal range of motion. There is no peripheral edema, tenderness or deformity. LYMPH: No cervical adenopathy. NEURO: He is alert and oriented to person, place, and time. He has normal strength. No cranial nerve deficit or sensory deficit. Coordination and gait normal. GCS eye subscore is 4. GCS verbal subscore is 5. GCS motor subscore is 6. Cerebellar tests wnl. SKIN: Skin is warm and dry. He is not diaphoretic. PSYCH: He has a normal mood and affect. Behavior is normal. Judgment and thought content normal. Course Course 1317: The patient was evaluated in room B10. A complete history and physical exam was performed Cardiac monitoring: An order was placed for continuous cardiac monitoring. The monitor shows a rate of 80 with sinus rhythm Patient hypotensive on arrival to the emergency department. Sepsis protocols initiated. 1600:Vital signs stable. Blood pressure improved status post IV fluids. Labs show a leukopenia of 1.43. Hemoglobin 10.5. Absolute neutrophil count of 0.13. Sodium 129. Troponin elevated 0.154. Patient not reporting any chest pain at this time. Lactic acid 2. Alkaline phosphatase 773, this is at the patient's baseline. Procalcitonin is elevated 2.71. Patient will be given cefepime given his reported fevers and his neutropenia. Patient will be admitted to the [facility] team Dr. Mccabe. Chest x-ray, influenza, and Covid negative. Administered Medications Discontinued Medications Sodium Chloride (Nss 1000ml) 1,000 mls @ 999 mls/hr IV .Q1H1M ZAFAR Stop: 03/06/21 14:30 Last Admin: 03/06/21 14:40 Dose: Not Given Documented by: [id number] Cefepime HCl (Maxipime) 2,000 mg in 20 mls @ 5 mls/min IV NOW STA; Protocol Stop: 03/06/21 15:12 Last Admin: 03/06/21 16:00 Dose: 5 mls/min Documented by: [id number] Ioversol (Optiray 320 100ml) 91 ml IV ONCE ONE Stop: 03/06/21 17:11 Last Admin: 03/06/21 17:12 Dose: 91 ml Documented by: [id number] Medical Decision Making Laboratory Data Result diagrams: 03/06/21 14:18 03/06/21 14:18 Lab Results 03/06/21 03/06/21 03/06/21 Range/Units 13:29 13:29 13:29 WBC (4.8-10.8) K/uL RBC (4.7-6.1) M/uL Hgb (14.0-18.0) g/dL Hct (42-52) % MCV (80-100) fL MCH (25-34) pg MCHC (32-36) g/dL RDW Std Deviation (36.4-46.3) fL RDW Coeff of [place] (11.5-14.5) % Plt Count (130-400) K/uL MPV (7.4-10.4) fL Immature Gran % (Auto) % Neut % (Auto) % Lymph % (Auto) % Petroleum % (Auto) % Eos % (Auto) % Baso % (Auto) % Neut # (Auto) (1.4-6.5) K/uL Lymph # (Auto) (1.2-3.4) K/uL Petroleum # (Auto) (0.11-0.59) K/uL Eos # (Auto) (0-0.5) K/uL Baso # (Auto) (0-0.2) K/uL Immature Gran # (Auto) (0.00-0.02) K/uL Giant Platelets Echinocytes PT INR APTT PTT Ratio Sodium (136-145) mmol/L Potassium (3.5-5.1) mmol/L Chloride (98-107) mmol/L Carbon Dioxide (21-32) mmol/L Anion Gap (3-11) BUN (7-18) mg/dl Creatinine (0.6-1.4) mg/dl Est Cr Clr Drug Dosing ml/min Est GFR ( Amer) ml/min Est GFR (Non-Af Amer) ml/min BUN/Creatinine Ratio (10-20) Glucose (70-99) mg/dl Lactate (0.4-2.0) mmol/L Calcium (8.5-10.1) mg/dl Magnesium (1.8-2.4) mg/dl Total Bilirubin (0.2-1) mg/dl AST (15-37) U/L ALT (12-78) U/L Alkaline Phosphatase (45-117) U/L Troponin I (0-0.045) ng/ml Total Protein (6.4-8.2) gm/dl Albumin (3.4-5.0) gm/dl Globulin (2.5-4.0) gm/dl Albumin/Globulin Ratio (0.9-2) Procalcitonin (0-0.5) ng/ml Specimen Hemolysis Urine Color Urine Appearance (Clear) Urine pH (4.5-7.5) Ur Specific [place] (1.000-1.030) Urine Protein (Negative) Urine Glucose (UA) (Negative) Urine Ketones (Negative) Urine Blood (Negative) Urine Nitrite (Negative) Urine Bilirubin (Negative) Urine Urobilinogen (Negative) Ur Leukocyte Esterase (Negative) COVID-19 Eval Order Covid19 at [facility] SARS-CoV-2 (PCR) NEGATIVE (Negative) Influ A Molecular Assay Negative (Negative) Influ B Molecular Assay Negative (Negative) 03/06/21 03/06/21 03/06/21 Range/Units 14:18 14:18 14:18 WBC 1.43 L (4.8-10.8) K/uL RBC 3.82 L (4.7-6.1) M/uL Hgb 10.5 L (14.0-18.0) g/dL Hct 32.1 L (42-52) % MCV 84.0 (80-100) fL MCH 27.5 (25-34) pg MCHC 32.7 (32-36) g/dL RDW Std Deviation 42.8 (36.4-46.3) fL RDW Coeff of [place]eru 14.4 (11.5-14.5) % Plt Count 242 (130-400) K/uL MPV 9.1 (7.4-10.4) fL Immature Gran % (Auto) 0.0 % Neut % (Auto) 9.1 % Lymph % (Auto) 55.2 % Petroleum % (Auto) 35.0 % Eos % (Auto) 0.7 % Baso % (Auto) 0.0 % Neut # (Auto) 0.13 L* (1.4-6.5) K/uL Lymph # (Auto) 0.79 L (1.2-3.4) K/uL Petroleum # (Auto) 0.50 (0.11-0.59) K/uL Eos # (Auto) 0.01 (0-0.5) K/uL Baso # (Auto) 0.00 (0-0.2) K/uL Immature Gran # (Auto) 0.00 (0.00-0.02) K/uL Giant Platelets 1+ Echinocytes 1+ PT Cancelled INR Cancelled APTT Cancelled PTT Ratio Cancelled Sodium 129 L (136-145) mmol/L Potassium 4.1 (3.5-5.1) mmol/L Chloride 99 (98-107) mmol/L Carbon Dioxide 21 (21-32) mmol/L Anion Gap 9.0 (3-11) BUN 13 (7-18) mg/dl Creatinine 1.13 (0.6-1.4) mg/dl Est Cr Clr Drug Dosing 75.6 ml/min Est GFR ( Amer) 79.7 ml/min Est GFR (Non-Af Amer) 68.8 ml/min BUN/Creatinine Ratio 11.2 (10-20) Glucose 121 H (70-99) mg/dl Lactate (0.4-2.0) mmol/L Calcium 8.8 (8.5-10.1) mg/dl Magnesium 1.9 (1.8-2.4) mg/dl Total Bilirubin 1.1 H (0.2-1) mg/dl AST 33 (15-37) U/L ALT 31 (12-78) U/L Alkaline Phosphatase 773 H (45-117) U/L Troponin I 0.154 H* (0-0.045) ng/ml Total Protein 7.4 (6.4-8.2) gm/dl Albumin 2.7 L (3.4-5.0) gm/dl Globulin 4.7 H (2.5-4.0) gm/dl Albumin/Globulin Ratio 0.6 L (0.9-2) Procalcitonin (0-0.5) ng/ml Specimen Hemolysis Urine Color Urine Appearance (Clear) Urine pH (4.5-7.5) Ur Specific [place] (1.000-1.030) Urine Protein (Negative) Urine Glucose (UA) (Negative) Urine Ketones (Negative) Urine Blood (Negative) Urine Nitrite (Negative) Urine Bilirubin (Negative) Urine Urobilinogen (Negative) Ur Leukocyte Esterase (Negative) COVID-19 Eval Order SARS-CoV-2 (PCR) (Negative) Influ A Molecular Assay (Negative) Influ B Molecular Assay (Negative) 03/06/21 03/06/21 03/06/21 Range/Units 14:18 14:18 15:08 WBC (4.8-10.8) K/uL RBC (4.7-6.1) M/uL Hgb (14.0-18.0) g/dL Hct (42-52) % MCV (80-100) fL MCH (25-34) pg MCHC (32-36) g/dL RDW Std Deviation (36.4-46.3) fL RDW Coeff of Neeru (11.5-14.5) % Plt Count (130-400) K/uL MPV (7.4-10.4) fL Immature Gran % (Auto) % Neut % (Auto) % Lymph % (Auto) % Petroleum % (Auto) % Eos % (Auto) % Baso % (Auto) % Neut # (Auto) (1.4-6.5) K/uL Lymph # (Auto) (1.2-3.4) K/uL Petroleum # (Auto) (0.11-0.59) K/uL Eos # (Auto) (0-0.5) K/uL Baso # (Auto) (0-0.2) K/uL Immature Gran # (Auto) (0.00-0.02) K/uL Giant Platelets Echinocytes PT 13.1 H INR 1.3 H APTT 43.3 H PTT Ratio 1.6 Sodium (136-145) mmol/L Potassium (3.5-5.1) mmol/L Chloride (98-107) mmol/L Carbon Dioxide (21-32) mmol/L Anion Gap (3-11) BUN (7-18) mg/dl Creatinine (0.6-1.4) mg/dl Est Cr Clr Drug Dosing ml/min Est GFR ( Amer) ml/min Est GFR (Non-Af Amer) ml/min BUN/Creatinine Ratio (10-20) Glucose (70-99) mg/dl Lactate 2.0 (0.4-2.0) mmol/L Calcium (8.5-10.1) mg/dl Magnesium (1.8-2.4) mg/dl Total Bilirubin (0.2-1) mg/dl AST (15-37) U/L ALT (12-78) U/L Alkaline Phosphatase (45-117) U/L Troponin I (0-0.045) ng/ml Total Protein (6.4-8.2) gm/dl Albumin (3.4-5.0) gm/dl Globulin (2.5-4.0) gm/dl Albumin/Globulin Ratio (0.9-2) Procalcitonin 2.71 H (0-0.5) ng/ml Specimen Hemolysis Urine Color Urine Appearance (Clear) Urine pH (4.5-7.5) Ur Specific [place] (1.000-1.030) Urine Protein (Negative) Urine Glucose (UA) (Negative) Urine Ketones (Negative) Urine Blood (Negative) Urine Nitrite (Negative) Urine Bilirubin (Negative) Urine Urobilinogen (Negative) Ur Leukocyte Esterase (Negative) COVID-19 Eval Order SARS-CoV-2 (PCR) (Negative) Influ A Molecular Assay (Negative) Influ B Molecular Assay (Negative) 03/06/21 Range/Units 16:03 WBC (4.8-10.8) K/uL RBC (4.7-6.1) M/uL Hgb (14.0-18.0) g/dL Hct (42-52) % MCV (80-100) fL MCH (25-34) pg MCHC (32-36) g/dL RDW Std Deviation (36.4-46.3) fL RDW Coeff of Neeru (11.5-14.5) % Plt Count (130-400) K/uL MPV (7.4-10.4) fL Immature Gran % (Auto) % Neut % (Auto) % Lymph % (Auto) % Petroleum % (Auto) % Eos % (Auto) % Baso % (Auto) % Neut # (Auto) (1.4-6.5) K/uL Lymph # (Auto) (1.2-3.4) K/uL Petroleum # (Auto) (0.11-0.59) K/uL Eos # (Auto) (0-0.5) K/uL Baso # (Auto) (0-0.2) K/uL Immature Gran # (Auto) (0.00-0.02) K/uL Giant Platelets Echinocytes PT INR APTT PTT Ratio Sodium (136-145) mmol/L Potassium (3.5-5.1) mmol/L Chloride (98-107) mmol/L Carbon Dioxide (21-32) mmol/L Anion Gap (3-11) BUN (7-18) mg/dl Creatinine (0.6-1.4) mg/dl Est Cr Clr Drug Dosing ml/min Est GFR ( Amer) ml/min Est GFR (Non-Af Amer) ml/min BUN/Creatinine Ratio (10-20) Glucose (70-99) mg/dl Lactate (0.4-2.0) mmol/L Calcium (8.5-10.1) mg/dl Magnesium (1.8-2.4) mg/dl Total Bilirubin (0.2-1) mg/dl AST (15-37) U/L ALT (12-78) U/L Alkaline Phosphatase (45-117) U/L Troponin I (0-0.045) ng/ml Total Protein (6.4-8.2) gm/dl Albumin (3.4-5.0) gm/dl Globulin (2.5-4.0) gm/dl Albumin/Globulin Ratio (0.9-2) Procalcitonin (0-0.5) ng/ml Specimen Hemolysis Urine Color [place] Urine Appearance Clear (Clear) Urine pH 6.0 (4.5-7.5) Ur Specific [place] 1.012 (1.000-1.030) Urine Protein Negative (Negative) Urine Glucose (UA) Negative (Negative) Urine Ketones Trace H (Negative) Urine Blood Negative (Negative) Urine Nitrite Negative (Negative) Urine Bilirubin Negative (Negative) Urine Urobilinogen Negative (Negative) Ur Leukocyte Esterase Negative (Negative) COVID-19 Eval Order SARS-CoV-2 (PCR) (Negative) Influ A Molecular Assay (Negative) Influ B Molecular Assay (Negative) Imaging Data Radiologist's Impression: Chest X-Ray 03/06/21 13:17 XR chest 1V portable HISTORY: 65 years-old Male SEPSIS acute sepsis COMPARISON: CTA chest 01/31/2021 TECHNIQUE: Portable AP view of the chest FINDINGS: Cardiac silhouette is upper limits of normal in size. Right IJ [id number] catheter is noted with distal tip in the expected location of the upper to mid SVC. Mild linear subsegmental left lung base atelectasis/scarring. No pneumothorax, pleural effusion, airspace consolidation or overt pulmonary edema. Degenerative changes of the shoulders and spine. IMPRESSION: No acute process. ACT 112: Negative or not required by law. The above report was generated using voice recognition software. It may contain grammatical, syntax or spelling errors. Electronically signed by: Hayder Robles M.D. 03/06/2021 2:43 PM Abdomen/Pelvis CT 03/06/21 16:[address] WITH IV CONTRAST CT DOSE: 575.78 mGy.cm HISTORY: Generalized abdominal pain, sepsis, diarrhea TECHNIQUE: Multiaxial CT images of the abdomen and pelvis were performed following the use of intravenous contrast. A dose lowering technique was utilized adhering to the principles of ALARA. COMPARISON STUDY: Abdomen and pelvis CT 01/31/2021. FINDINGS: A few bibasilar linear densities consistent with subsegmental atelectasis. No pneumoperitoneum. No pneumatosis. No suspicious lytic or blastic osseous lesions. The bilateral pulmonary emboli appear to have improved/resolved in the interval. Increase in size in the innumerable hepatic metastases with the dominant lesion now measuring 5.4 cm, previously measuring 4 cm. The main portal vein is patent. The gallbladder is unremarkable. The splenic infarcts have improved. The adrenal glands are unremarkable. Redemonstration of the 2 cm necrotic lesion at the pancreatic body/tail. This is not significantly changed. There is mild dilatation of the proximal pancreatic duct which is also unchanged. No hydronephrosis. Stable cysts within the lower pole the right kidney. The bilateral renal infarcts have almost completely resolved. 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 This may account for the upper abdominal varicosities. No retroperitoneal lymphadenopathy. Normal bladder. The prostate gland remains enlarged. No pelvic lymphadenopathy. Normal caliber abdominal aorta. No dilated loops of bowel to suggest an obstruction. Normal appendix. Fluid-filled colon. Mild to moderate colonic wall thickening involving the majority of the transverse colon and descending colon. This consistent with a nonspecific colitis but favors an infectious or inflammatory process. The mesenteric vessels appear patent. IMPRESSION: 1. Mild to moderate thickening of the transverse colon and descending colon consistent with a nonspecific colitis. This favors an infectious or inflammatory process. 2. Increase in size in the multiple hepatic metastases. 3. Interval improvement in the splenic and renal infarcts. The bilateral pulmonary emboli have also improved. 4. No significant change in the 2 cm pancreatic lesion. ACT 112: Negative or not required by law. Electronically signed by: Rashawn Lynch M.D. 03/06/2021 5:26 PM ECG Data Indication: + other (fever) Rate (beats per minute): 75 Rhythm: + normal sinus ECG Intervals/blocks: + Normal QRS, + Normal AR and + Normal QT-c ECG ST segments: + Normal ST segments MDM Narrative 1317: The patient was evaluated in room B10. A complete history and physical exam was performed Cardiac monitoring: An order was placed for continuous cardiac monitoring. The monitor shows a rate of 80 with sinus rhythm Patient hypotensive on arrival to the emergency department. Sepsis protocols initiated. 1600:Vital signs stable. Blood pressure improved status post IV fluids. Labs show a leukopenia of 1.43. Hemoglobin 10.5. Absolute neutrophil count of 0.13. Sodium 129. Troponin elevated 0.154. Patient not reporting any chest pain at this time. Lactic acid 2. Alkaline phosphatase 773, this is at the patient's baseline. Procalcitonin is elevated 2.71. Patient will be given cefepime given his reported fevers and his neutropenia. Patient will be admitted to the [facility] team Dr. Mccabe. Chest x-ray, influenza, and Covid negative. Impression & Plan Neutropenic fever Discharge Plan Visit Data Chief Complaint: Fever Stated Complaint: FEVER, CHILLS Discharge Problem: Neutropenic fever Patient Disposition: Admitted As Inpatient Forms Stand Alone Forms: [facility] Prescriptions Prescriptions: No Action enoxaparin 100 mg/mL syringe 100 mg subcut Q12H Qty: 60 RF: 11 aspirin 81 mg tablet,delayed release (DR/EC) 81 mg PO DAILY RF: 0 ondansetron HCl 8 mg tablet 8 mg PO Q8 PRN (Reason: Nausea) RF: 0 prochlorperazine maleate 10 mg tablet 10 mg PO Q6 PRN (Reason: Nausea And Vomiting) RF: 0 zolpidem 10 mg tablet 5 - 10 mg PO HS PRN (Reason: insomnia) RF: 0 atorvastatin 20 mg tablet 20 mg PO HS RF: 0 Referrals Referrals: Mino Payan MD [Primary Care Provider] -
[2021-03-06] MEDS ORDERED: MEROPENEM 1,000 MG in SYRINGE 0 ML IV ONE (19:00)
--- NOTE | 2021-03-06 19:38 | Pharmacy Report ---
Pharmacy Abx Dose Short Note - Date of Service March 06, 2021 - Assessment & Plan Assessment * 65 year old M w hx metastatic pancreatic CA on chemo receiving meropenem and vancomycin for treatment of sepsis 2nd possible neutropenic enterocolitis. Subjective fever PHYSICIAN/ALLERGY/IMMUNOLOGY and ANC of 0.13 * SCr slightly bumped from baseline, but still OK to initially dose vancomycin based on AUC estimate. Will aim for higher end of goal range Plan * Vancomycin 2250 mg IV x1 then 1000 mg IV q12h * Trough 03/08 @ 0730 Pharmacy will continue to follow and will adjust dose/frequency as necessary. Thank you.
[2021-03-06] MEDS ORDERED: MEROPENEM CONSULT ACTIVE PRN (20:16)
[2021-03-06] MEDS ORDERED: ACETAMINOPHEN 325 MG TAB PO PRN (20:16)
[2021-03-06] MEDS ORDERED: ZOLPIDEM TARTRATE 5 MG TAB PO PRN (20:16)
[2021-03-06] MEDS ORDERED: POLYETHYLENE (MIRALAX) 17 GM PACK PO PRN (20:16)
[2021-03-06] MEDS ORDERED: ONDANSETRON INJ 2 MG/ML 2 ML VIAL IV PRN (20:16)
[2021-03-06] MEDS: ENOXAPARIN 100 MG/1ML SYR SQ SCH (21:37)
[2021-03-06] MEDS: FILGRASTIM 480 MCG/1.6 ML VIAL SQ SCH (21:37)
[2021-03-07 02:11] LABS: Hematocrit (blood only) 30.3 % (42-52); Mean Corpuscular Hemoglobin 27.4 pg (25-34); Mean Platelet Volume 8.6 fL (7.4-10.4); Platelet Count 234 K/uL (130-400); RDW Coefficient of Variation 14.5 % (11.5-14.5); RDW Standard Deviation 43.2 fL (36.4-46.3); Red Blood Count 3.65 M/uL (4.7-6.1)
[2021-03-07 02:33] LABS: BUN Creatinine Ratio 14.9 (10-20); C Reactive Protein 17.3 mg/dl (0-0.29); Calcium 7.9 mg/dl (8.5-10.1); Creatinine Clr Calc Pharmacy 109.6 ml/min; Est GFR (African American) 111.3 ml/min; Est GFR (Non-African American) 96.1 ml/min; Magnesium 1.7 mg/dl (1.8-2.4); Potassium 3.7 mmol/L (3.5-5.1)
[2021-03-07 02:49] LABS: Dohle Bodies 1+; Eosinophils # (auto) 0.06 K/uL (0-0.5); Eosinophils % (auto) 2.3 %; Giant Platelets 1+; Immature Granulocytes # (auto) 0.01 K/uL (0.00-0.02); Immature Granulocytes % (auto) 0.4 %; Lymphocytes # (auto) 1.25 K/uL (1.2-3.4); Lymphocytes % (auto) 48.1 %; Monocytes # (auto) 0.62 K/uL (0.11-0.59); Monocytes % (auto) 23.8 %; Neutrophils # (auto) 0.66 K/uL (1.4-6.5); Neutrophils % (auto) 25.4 %
[2021-03-07] MEDS ORDERED: VANCOMYCIN HCL 1,000 MG in SODIUM CHLORIDE 0.9% 250 ML IV SCH ×2 (04:00→08:00)
[2021-03-07] MEDS: MEROPENEM 1,000 MG in SYRINGE 0 ML IV SCH ×3 (05:43→20:11)
[2021-03-07] MEDS: ATORVASTATIN 20 MG TAB PO SCH (08:20)
[2021-03-07] MEDS: ASPIRIN 81 MG ECTAB PO SCH (08:20)
[2021-03-07] MEDS: VANCOMYCIN HCL 1,250 MG in SODIUM CHLORIDE 0.9% 250 ML IV SCH ×2 (08:21→20:11)
[2021-03-07] MEDS: ENOXAPARIN 100 MG/1ML SYR SQ SCH ×2 (08:21→20:12)
--- NOTE | 2021-03-07 08:44 | Consultation Report ---
MEDICAL ONCOLOGY CONSULTATION DATE OF SERVICE 03/07/2021. REASON FOR CONSULTATION: A 65-year-old gentleman with metastatic pancreatic cancer and neutropenic f ever. HISTORY OF PRESENT ILLNESS: Mr. Caban presented to [facility] yesterday compla ining of indigestion, bloating, pyrosis and diarrhea. He also experienced about 2-4 bouts of nausea and vomiting. He describes the stool is brown in color, loose, mostly watery. There is no evidence of blood or mucus within the stools. He also developed fever around 101.5. He presented to the [facility] Room and not surprisingly, was found to be neutropenic. He was pancultured including stool, ur ine and blood and placed on broad spectrum antibiotics. Mr. Caban is actually a new patient, I saw him for the first time on 03/04/2021, with a diagnosis of metastatic pancreatic cancer (hepatic mets), status post cycle 1 FOLFIRINOX chemotherapy, which w as administered roughly 2 weeks ago. Mr. Caban did not complete the full treatment, apparently h ad issues with the transfusional pump and therefore did not receive high-dose 5-FU, but did receive i nitial oxaliplatin, irinotecan and bolus 5-FU and leucovorin. This gentleman had a very interesting initial portion of history, suffering an ischemic cerebrovascular accident in late November of 2020 while vacationing in [place]. He had developed flaccidity, left side and associated left facial dr oop. In the Emergency Room, was found to have right frontotemporal and left frontotemporal ischemic stroke. TPA was administered resulting in immediate improvement in his neurologic status. He travel ed back to [place], developed charley horse sensation involving his left leg. He had presented to [facility] where he was diagnosed with DVT and PE, was subsequently transferred to [facility] in [place], where he spent 6 days on the neuro unit. He was subsequentl y heparinized and converted to Coumadin, which unfortunately resulted in bilateral lower extremity we akness. He was subsequently transitioned to Eliquis, but unfortunately had breakthrough thrombotic e vents, necessitating anticoagulation change and now had transition to Lovenox 90 mg subcutaneously b. i.d. Mr. Caban was seen by consultants at [facility] Dr. Allred from medical onc ology, made recommendation of salvage FOLFIRINOX and he received, again the aborted first course, abo ut 2 weeks ago. He now presents with neutropenic fever and have recommended admission to hospital, p anculture, broad spectrum antibiotics and granulocyte colony stimulating growth factor. PAST MEDICAL HISTORY: Includes DVT, CVA, Lyme's disease, third-degree heart block and metastatic bowman creatic cancer. The patient has received COVID-19 vaccination x2. PAST SURGICAL HISTORY: Cataract extraction. HOME MEDICATIONS: Include Ambien 5-10 mg p.o. at bedtime p.r.n., Compazine 10 mg p.o. q.6 hours p.r. n., Zofran 8 mg p.o. q.8 hours p.r.n., atorvastatin 20 mg p.o. at bedtime, Lovenox 90 mg subcutaneous ly q.12 hours, b.i.d., aspirin 81 mg p.o. daily. ALLERGIES: BEE STINGS. FAMILY HISTORY: Father at age 77 from myocardial infarction. Mother suffered from essential tr emor. SOCIAL HISTORY: The patient is , resides with his spouse. Was still employed full at the time of diagnosis. He does enjoy wine on social occasions. He is a reformed smoker. REVIEW OF SYSTEMS: CONSTITUTIONAL: Positive for low-grade fever and chills. Positive for generalized weakness, fatigue . Positive for mild anorexia. No overt weight loss per se. SKIN: No rashes or lesions. No history of dermatoses. HEENT: Negative for headaches, lightheadedness or dizziness. No acute visual or hearing deficits. No sinus symptoms, sore throat or dysphagia. LYMPH: No history of lymphoproliferative disease. CARDIAC: No history of coronary artery disease. No current angina or palpitations. 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 He is not a cutely short of breath, dyspneic or orthopneic. No cough or hemoptysis. GASTROINTESTINAL: As per HPI. GENITOURINARY: No history of prostate disease. No hematuria, dysuria, urinary incontinence. PSYCHIATRIC: Negative for anxiety, depression, or psychoses. MUSCULOSKELETAL: Negative for arthralgias or myalgias. No muscle weakness. NEUROLOGIC: Negative for seizure. Positive for CVA as per HPI. HEMATOLOGIC: Positive for neutropenia. PHYSICAL EXAMINATION: GENERAL: Very pleasant 65-year-old gentleman, awake, alert, appropriate, in no acute distress. VITAL SIGNS: Temperature 36.9, pulse 73, respiratory rate 18, blood pressure 161/83. SKIN: Warm, dry, noncyanotic without petechiae, rash or ecchymosis. HEENT: Head atraumatic, normocephalic. Eyes: PERRLA. EOMI. Sclerae are nonicteric. No conjunctiv al injection. Nares patent without rhinorrhea or discharge. Throat clear. Tongue midline. No bucc al lesions or evidence of thrush. NECK: Supple without JVD or thyromegaly. LYMPH: No cervical, supraclavicular palpable nodes. HEART: Regular rate and rhythm. No clicks, rubs, murmurs or gallops. LUNGS: Clear to auscultation bilaterally. ABDOMEN: Soft, nontender, nondistended, without palpable hepatosplenomegaly. MUSCULOSKELETAL: Strength and pulses are equal in all 4 quadrants. No clubbing, cyanosis or edema. NEUROLOGIC: He is grossly intact. LABORATORY DATA: WBC count 2600, hemoglobin 10, platelet count 234,000, absolute neutrophil count 66 0. PT 13.1, PTT 43.3 seconds. Sodium 132, potassium 3.7, chloride 101, carbon dioxide 26, creatinin e 0.78, BUN 12, calcium 7.9, magnesium 1.7, total bilirubin 1.1, alkaline phosphatase 773, albumin 2. 7. Procalcitonin 3.38. Troponin I 0.123. C-reactive protein 17.3. COVID-19 negative. RADIOGRAPHIC DATA: CT scan of the abdomen and pelvis, mild to moderate thickening of the transverse and descending colon consistent with nonspecific colitis. Increased size in multiple hepatic metasta ses. Interval improvement in the splenic and renal infarcts. Bilateral pulmonary emboli, also impro zoila. No significant change in 2 cm pancreatic lesion. IMPRESSION: 1. Typhlitis. 2. Diarrhea. 3. Neutropenic fever. 4. Electrolyte dysfunction. 5. Metastatic pancreatic cancer. 6. Trousseau's syndrome (cerebrovascular accident, deep venous thrombosis and pulmonary embolism). 7. Hypoalbuminemia. PLAN: In summary, Eliseo is a very pleasant 65-year-old gentleman I just met at [facility] not more than a week ago with a new diagnosis of metastatic pancreatic cancer and associated Trousseau's syndrome. A gain, this gentleman had a very interesting presentation compounded with serious vascular events, res ponded well to TPA; however, has been on multiple anticoagulants and now continues Lovenox, which he will remain on for the time being. Not surprisingly, he has developed neutropenia and recommended Ne upogen be administered in-house for the next couple of days until neutrophil recovery. We will have to seriously consider dose modification moving forward, perhaps provide him a prescription for Lomoti l to deal with diarrhea, I suspect largely due to irinotecan toxicity. We will continue to follow cu ltures. Continue broad spectrum antibiotics until cultures are finalized and perhaps discharge the p atient on Levaquin or perhaps ciprofloxacin for continued coverage until followup at [facility]. Again, I d o not recommend anticoagulant change and will transition him at some point to 1.5 mg/kg once daily to alleviate burden of multiple injections. I will make this change when deemed appropriate once he is medically stable. That said, upon recovery, we will plan to continue modified FOLFIRINOX. I have n othing further to add. We will continue to follow Mr. Caban periodically throughout [facility]. Questions and concerns were addressed. Job ID: [id number]
--- NOTE | 2021-03-07 09:37 | Hospitalist Progress Note ---
Date of Service March 07, 2021 Assessment & Plan (1) Sepsis: Plan: SIRS-3 qSOFA-2 - Presumed abdominal source- colitis vs. typhlitis vs. Cdiff - CTA of abdomen and pelvis- 03/06 thickening of transverse and descending colon suggestive on nonspecific colitis interval increase in hepatic metastasis, improvement of pulmonary, splenic and renal infarcts. stable 2 cm pancreatic mass - Meropenem 1GM IV q8 hours - Vancomycin IV pharmacy to dose- - Lactate 2.0 - PCT elevated - Neutropenic and lymphopenic- Nuepogen 480mg sq daily subjective count is 660 will continue to administer and follow - Blood cultures- negative to date - UA - negative Stool studies pending (2) Neutropenic: Plan: As above - hematology oncology consult placed- supportive care - Continue with Nuepogen daily (3) Colitis: Plan: As above- colitis vs. tyhplitis vs. cdiff - Mild to moderate thickening of the transverse colon and descending colon consistent with a nonspecific colitis. This favors an infectious or inflammatory process. - diarrhea persistent cultures pending (4) Metastatic adenocarcinoma: Plan: Metastatic pancreatic cancer to the liver - 1.9 cm pancreatic body mass with splenic and renal infarcts noted on 01/31/21 - Liver biopsy completed 02/01/21- pathology- adenocarcinoma with MUCIN - interpreted as consistent with pancreaticobiliary or upper GI origin - Positive CK7 negative for CK 20 - patient undergoing FOLFIRINOX palliative chemo started cycle 1 of 4- Follows gt POLLARD and Dr. Zambrano at [facility] - Hematology/Oncology consulted- appreciate assistance (5) CVA (cerebral vascular accident): Plan: CVA 01/30/2021- Multiple scattered small infarcts throughout cerebra land cerebellar - Continue statin - atorvastatin 20mg QHS - Continue asa 81 mg daily (6) Lyme disease: Plan: Occurred with concern of 3rd degree heart block - Lyme IgG and IgM were positive - was treated with Doxycycline and Rocephin- course completed last week. (7) Elevated troponin: Plan: Troponin I elevated on admission to 0.154-> 0.098. no complaints of anginal like symptoms - ECG with nonspecific t wave flattening in lateral leads - - This is likely demand from sepsis (8) DVT (deep venous thrombosis): Plan: DVT with PE - continue Lovenox 100mg subq BID, may benefit from lower dose or even one dose a day adjustment of 1.5 mg/kg (9) Dyslipidemia: Plan: Cotinue statin (10) Third degree heart block: Plan: History of- had zio placed on at the time, associated with lyme infection - cardiology follow up- there has not been any further symptoms or ECG since treatment of lyme - no further work up initiated secondary to his co-morbid and acuity of his cancer dx/treatment Admission and Anticipated Discharge Date Admission Date: March 06, 2021 Subjective Patient persists with diarrhea which is preceded by abdominal cramping. Worse when he moves around. Relieved with diarrhea. Patient is status post treatment for pancreatic carcinoma and has neutropenic fever and likely colitis associated with his neutropenia. Otherwise he does not have any complaints of mouth or rectal pain Review of Systems Review of Systems: Moderate distress and fatigue no headache, no visual changes no speech or swallowing issues no complaints of oral lesions or tenderness no chest pain, pressure or palpitations no shortness of breath, cough or wheezes Crampy abdominal pain worse in the left lower quadrant resulting in diarrhea with relief of pain no dysuria, hematuria or frequency no focal joint pain or swelling no back pain, CVA tenderness or radicular pain no bruising, bleeding or rashes no focal signs of weakness or numbness or altered sensation no complaints of anxiety or depression.. Physical Exam Physical Exam: The patient appeared well nourished and normally developed. Seems to have some residual left-sided weakness from previous CVA with mild facial asymmetry Vital signs as documented. Head exam is normocephalic atraumatic Neck is without JVD, thyromegaly, or carotid bruits. Lungs are clear to auscultation, no focal loss of breath sounds Cardiac exam, Rhythm is regular.. No murmurs, rubs or gallops. Abdominal exam reveals hypoactive bowel sounds soft tender to examination Extremities are nonedematous and both pedal pulses are present Neurologic exam is alert and oriented, seems to have some left-sided facial weakness from previous CVA Skin is without bruises or rashes Psychologically is without concerns for anxiety or depression Results & Data Results & Data ([facility]) Vital Signs (Past 12 Hours) Vital Signs Temp Pulse Pulse Resp BP Pulse Ox 03/07/21 07:54 98.4 F 69 18 105/70 95 03/07/21 07:27 70 03/07/21 04:00 98.4 F 73 18 161/83 H 98 03/07/21 00:17 97.3 F L 100 H 20 95/60 L 94 PG Care Time/CCT Total # of Minutes Spent Total Time Spent with Patient: Total time spent is greater than 50% in coordination of care (as documented) at patient's floor/unit and/or counseling patient: Coding Level of Care Code 31909 Subseq Hosp Care Lvl 3 Diagnoses Sepsis A41.9 Neutropenic D70.9 Colitis K52.9 Metastatic adenocarcinoma C79.9 CVA (cerebral vascular accident) I63.9 CVA mechanism: unspecified Lyme disease A69.20 Elevated troponin R77.8 DVT (deep venous thrombosis) I82.409 Dyslipidemia E78.5 Third degree heart block I44.2 (1) CVA (cerebral vascular accident) CVA mechanism: unspecified Qualified Code(s): I63.9 - Cerebral infarction, unspecified
[2021-03-07] MEDS: FILGRASTIM 480 MCG/1.6 ML VIAL SQ SCH (11:39)
[2021-03-07] MEDS ORDERED: LOPERAMIDE HCL 2 MG CAP PO PRN (19:09)
[2021-03-08] MEDS: MEROPENEM 1,000 MG in SYRINGE 0 ML IV SCH ×2 (03:10→12:39)
[2021-03-08] MEDS ORDERED: VANCOMYCIN TROUGH ONE ×2 (03:30→07:30)
[2021-03-08 07:45] LABS: Hematocrit (blood only) 31.8 % (42-52); Hemoglobin 10.3 g/dL (14.0-18.0); Mean Corpuscular Hemoglobin 26.9 pg (25-34); Mean Corpuscular Hgb Conc 32.4 g/dL (32-36); Mean Platelet Volume 8.8 fL (7.4-10.4); Platelet Count 311 K/uL (130-400); RDW Coefficient of Variation 14.8 % (11.5-14.5); Red Blood Count 3.83 M/uL (4.7-6.1); White Blood Count 7.87 K/uL (4.8-10.8)
[2021-03-08 08:05] LABS: BUN Creatinine Ratio 14.3 (10-20); Calcium 8.4 mg/dl (8.5-10.1); Creatinine Clr Calc Pharmacy 114.9 ml/min; Est GFR (African American) 113.8 ml/min; Est GFR (Non-African American) 98.2 ml/min; Magnesium 2.2 mg/dl (1.8-2.4); Potassium 3.2 mmol/L (3.5-5.1)
[2021-03-08 08:18] LABS: ALC (manual) 1.64 K/uL (1.2-3.4); ANC (manual) 4.78 K/uL (1.4-6.5); Dohle Bodies 1+; Eosinophils # (manual) 0.55 K/uL (0-0.5); Lymphocytes # (manual) 1.64 K/uL (1.2-3.4); Lymphocytes % (manual) 20.9 %; Monocytes # (manual) 0.76 K/uL (0.11-0.59); Monocytes % (manual) 9.6 %; Myelocytes # (manual) 0.13 K/uL (0-0); Myelocytes % (manual) 1.7 %; Neutrophils # (manual) 4.78 K/uL (1.4-6.5); Neutrophils % (manual) 60.8 %; Toxic Granulation 1+
[2021-03-08] MEDS: ATORVASTATIN 20 MG TAB PO SCH (08:19)
[2021-03-08] MEDS: ASPIRIN 81 MG ECTAB PO SCH (08:19)
[2021-03-08] MEDS: VANCOMYCIN HCL 1,250 MG in SODIUM CHLORIDE 0.9% 250 ML IV SCH (08:20)
[2021-03-08] MEDS: ENOXAPARIN 100 MG/1ML SYR SQ SCH (08:20)
--- NOTE | 2021-03-08 09:10 | Pharmacy Report ---
Pharmacy Vanc AUC Short Note - Date of Service March 08, 2021 - Assessment & Plan Assessment 65 year old M w hx metastatic pancreatic CA on chemo receiving meropenem and vancomycin for treatment of sepsis 2nd possible neutropenic enterocolitis. pT afebrile and ANC of 0.66 Plan Vancomycin * AUC/EVER is the preferred PK/PD target for vancomycin * AUC guided dosing is effective and associated with decreased risk of nephrotoxicity compared to traditional trough targets * Trough level of 11.8 mcg/mL is predicted to achieve target AUC/EVER of 400-600 mg/L.hr and may be associated with a 8 % risk of nephrotoxicity * Continue dose of 1250 mg IV every 12 hours as this correlates to an AUC of 447 mg/L.hr * Repeat Trough level ordered for: 03/10/21 @ 0930 Pharmacy will continue to follow and will adjust dose/frequency as necessary. Thank you.
[2021-03-08] MEDS ORDERED: POTASSIUM CHLORIDE CRTAB 20 MEQ TABCR PO STA (11:25)
[2021-03-08] MEDS: FILGRASTIM 480 MCG/1.6 ML VIAL SQ SCH (11:31)
--- NOTE | 2021-03-08 16:59 | Electrocardiogram Report ---
Test Reason : Blood Pressure : / mmHG Vent. Rate : 082 BPM Atrial Rate : 082 BPM P-R Int : 204 ms QRS Dur : 082 ms QT Int : 356 ms P-R-T Axes : 082 031 004 degrees QTc Int : 415 ms Normal sinus rhythm When compared with ECG of 06-MAR-2021 13:30, Borderline criteria for Inferior infarct are now Present Confirmed by Wayne Jackson ([id number]) on 03/08/2021 4:58:54 PM Referred By: REFERRED SELF Confirmed By:Donnie Jackson
--- NOTE | 2021-03-08 19:40 | Discharge Summary ---
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 The patient has recently started FOLFIRINOX cycle 1 he was to proceed with 5FU therapy at home- but was some difficulties setting this up. He is planned for 4 cycles of FOLFIRINOX and last received this about 1.5 weeks ago, his next treatment was this upcoming week. The patient was doing well up until this past Thursday where he started having some indigestion and what he through was gas pains in his lower abdomen. This was followed with nausea without vomiting and 2-4 bouts of diarrhea. The stool was brown in color, loose and mostly water, he denies any blood or mucous in the stools and his abdominal pain has since improved. The patient started to have fevers yesterday into this morning that reports as >101.5. He denies any other coughs, joint or bone aches. In the EMD the patient had routine labs drawn, CXR done, blood cultures and urine cultures done. He was given a dose of Cefepime in the EMD. Patient was noted to be hypotensive on arrival and responded well to 1L of crystalloid. His labs revealed neutropenic and leukopenic with a lactate of 2.0 and PCT of 2.71. Hospitalist team was notified for admission. CT scan with IV contrast of the abdomen and pelvis was ordered, will send Cdiff with leukopenia and recent abx, although diarrhea has seemed to resolve with Imodium use at home. For his neutropenia and leukopenia discussed with Dr. Zambrano for Neupogen administration and will provide 480mg subq daily starting today for 3-5 days depending on results. Patient will be admitted for sepsis with possible typhlitis, will start Meropenem 1GM q8 hours and Vancomycin now. Continue to follow hemodynamics, Urine output, and biomarkers. For his DVT and PE- patient was originally on VKA and developed rash was transitioned to Eliquis and subsequently had PE- he is now on Lovenox 100mg sub q BID and will continue this. Patient has had his COVID vaccine and his COVID test on admission is: NEGATIVE as well as influenza A and B are negative Principal Diagnosis sepsis from typhilitis from neutropenia from chemotherapy Discharge Exam The patient appeared well Vital signs as documented. Lungs are clear to auscultation and appear unlabored Cardiac exam, Rhythm is regular.. No murmurs, rubs or gallops. Abdominal exam reveals normal bowel sounds, soft non tender, no masses Extremities are nonedematous and both pedal pulses are normal. Neurologic exam is alert and oriented, needs with mild facial asymmetry, no other focal loss of strength or sensation Skin is without bruises or rashes Psychologically is without concerns for anxiety or depression. Discharge Data Allergies Allergy/AdvReac Type Severity Reaction Status Date / Time bee venom protein (honey bee) Allergy Intermediate Swelling Verified 03/06/21 20:32 of Lip/Tongue/Throat Consultations 03/06/21 15:59 ED Decision to Admit Stat 03/06/21 20:16 Consult Oncology Routine Ordered Studies 03/06/21 16:42 CT abd pelvis IV con only Stat Hospital Course (1) Sepsis: SIRS-3 qSOFA-2 - Presumed abdominal source- colitis vs. typhlitis vs. Cdiff - CTA of abdomen and pelvis- 03/06 thickening of transverse and descending colon suggestive on nonspecific colitis interval increase in hepatic metastasis, improvement of pulmonary, splenic and renal infarcts. stable 2 cm pancreatic mass initially- Lactate 2.0 - PCT elevated We will not continue antibiotics as this improves when neutrophil count was rescued - Blood cultures- negative to date - UA - negative Stool studies negative C. difficile (2) Neutropenic: Resolved with Neupogen will discuss rescue therapy after next recent cycle of chemo which is scheduled for the week of (3) Colitis: As above- colitis vs. tyhplitis vs. cdiff - Mild to moderate thickening of the transverse colon and descending colon consistent with a nonspecific colitis. This favors an infectious or inflammatory process. - diarrhea resolved with neutropenia resolution (4) Metastatic adenocarcinoma: Metastatic pancreatic cancer to the liver - 1.9 cm pancreatic body mass with splenic and renal infarcts noted on 01/31/21 - Liver biopsy completed 02/01/21- pathology- adenocarcinoma with MUCIN - interpreted as consistent with pancreaticobiliary or upper GI origin - Positive CK7 negative for CK 20 - patient undergoing FOLFIRINOX palliative chemo started cycle 1 of 4- Follows with [facility] and Dr. Zambrano at [facility] - Hematology/Oncology consulted-plan as an outpatient visit 03/11 and likely additional cycles of chemotherapy that week (5) CVA (cerebral vascular accident): CVA 01/30/2021- Multiple scattered small infarcts throughout cerebra land cerebellar - Continue statin - atorvastatin 20mg QHS - Continue asa 81 mg daily (6) Lyme disease: Occurred with concern of 3rd degree heart block - Lyme IgG and IgM were positive - was treated with Doxycycline and Rocephin- course completed last week. (7) Elevated troponin: Troponin I elevated on admission to 0.154-> 0.098. no complaints of anginal like symptoms - ECG with nonspecific t wave flattening in lateral leads - - This is likely demand from sepsis no plans of further diagnosis of acute coronary syndrome (8) DVT (deep venous thrombosis): DVT with PE - continue Lovenox 100mg subq BID, may benefit from lower dose or even one dose a day adjustment of 1.5 mg/kg patient was counseled to watch his weight and if his weight declines much more past 200 pounds consideration of dose reduction to 90 twice daily or 150 daily (9) Dyslipidemia: Cotinue statin (10) Third degree heart block: History of- had zio placed on at the time, associated with lyme infection - cardiology follow up- there has not been any further symptoms or ECG since treatment of lyme - no further work up initiated secondary to his co-morbid and acuity of his cancer dx/treatment Total Time Total Time Spent Total Time Spent (In Minutes): It required greater than 30 minutes to prepare this patient for discharge Discharge Plan Discharge Items Patient Disposition: Home - Self-Care Reason For Visit: SEPTIC, NEUTROPENIA Discharge Diagnosis: typhilitis neutropenia associated with cancer treatment now resolved Activity: Resume your previous activity Non-emergency contact: Oncologist Call non-emergency contact if: you have any medication questions and your symptoms worsen Follow-up/Referrals: Mino Payan MD [Primary Care Provider] - Diet: Regular Addtl Attending Provider Instructions: your hospital stay was related to low white blood counts and how that affects your bowels, this should be resolved but if you develop recurrent diarrhea please contact your physician please follow up with Dr Zambrano Pending Studies at Discharge: Yes Stand-Alone Forms: My Programmr, Smoking Cessation Medications and DC Order Prescriptions: Continued enoxaparin 100 mg/mL syringe 100 mg subcut Q12H Qty: 60 RF: 11 aspirin 81 mg tablet,delayed release (DR/EC) 81 mg PO DAILY RF: 0 ondansetron HCl 8 mg tablet 8 mg PO Q8 PRN (Reason: Nausea) RF: 0 prochlorperazine maleate 10 mg tablet 10 mg PO Q6 PRN (Reason: Nausea And Vomiting) RF: 0 zolpidem 10 mg tablet 5 - 10 mg PO HS PRN (Reason: insomnia) RF: 0 atorvastatin 20 mg tablet 20 mg PO HS RF: 0 Discharge Orders: Discharge Order (Routine); Ordered 03/08/21 Ordered By: Prefecto Pacheco Admission Data Admit Date/Time: 03/06/21 17:03 Attending Provider: Perfecto Pacheco Admit Provider: Eric Carlisle Primary Care Provider: Mino Payan Other Providers: Eric Carlisle ; Wood Zambrano V. Other Interventions: Discharge Summary Assessment (RN) Last Done: 03/08/21 13:23 Coding Level of Care Code D/C DAY MANAGEMENT >30 MINS Diagnoses Sepsis A41.9 Neutropenic D70.9 Colitis K52.9 Metastatic adenocarcinoma C79.9 CVA (cerebral vascular accident) I63.9 CVA mechanism: unspecified Lyme disease A69.20 Elevated troponin R77.8 DVT (deep venous thrombosis) I82.409 Dyslipidemia E78.5 Third degree heart block I44.2
[2021-03-10] MEDS ORDERED: VANCOMYCIN TROUGH ONE (07:30)
== END 2021-03-08 14:15 | disposition home or self-care (01) | DRG 872 ==
LOC: ED 13:02 → SUATTDRO 17:03 → 2W 17:03
DX: R50.81 Fever presenting with conditions classified elsewhere; Z79.01 Long term (current) use of anticoagulants; Z51.81 Encounter for therapeutic drug level monitoring; I69.30 Unspecified sequelae of cerebral infarction; E78.5 Hyperlipidemia, unspecified; B94.8 Sequelae of other specified infectious and parasitic diseases; C78.7 Secondary malignant neoplasm of liver and intrahepatic bile duct; Z91.030 Bee allergy status; C25.9 Malignant neoplasm of pancreas, unspecified; Z86.718 Personal history of other venous thrombosis and embolism; K52.9 Noninfective gastroenteritis and colitis, unspecified; Z79.82 Long term (current) use of aspirin; Z86.711 Personal history of pulmonary embolism; I44.2 Atrioventricular block, complete; Z87.891 Personal history of nicotine dependence; D70.1 Agranulocytosis secondary to cancer chemotherapy; Z79.899 Other long term (current) drug therapy; R79.89 Other specified abnormal findings of blood chemistry; A41.9 Sepsis, unspecified organism; Z20.822 Contact with and (suspected) exposure to COVID-19; T45.1X5A Adverse effect of antineoplastic and immunosuppressive drugs, initial encounter; K37 Unspecified appendicitis

== ENCOUNTER 2021-06-18 15:16 | Inpatient (IN) ==
[2021-06-18] MEDS ORDERED: POTASSIUM CHLORIDE PWD 20 MEQ PACK PO STA (16:02)
--- NOTE | 2021-06-18 16:18 | Emergency Department Note ---
History of Present Illness General Chief complaint: Vomiting Stated complaint: LOW K, NAUSEA/VOMIT, DIARRHEA, CHEMO INDC'D Time Seen by Provider: 06/18/21 15:53 Source: patient and family Mode of arrival: wheelchair Limitations: no limitations History of Present Illness Provider complaint: Weakness, low potassium on labs, diarrhea Onset (ago): week(s) 2 Exacerbated By: + movement Associated symptoms: + loss of appetite, + malaise, + nausea/vomiting and + weakness; no chest pain, no cough, no fever/chills, no headaches or no shortness of breath Treatments prior to arrival: none This is a 65-year-old male presents emergency room after being directed here from the cancer center due to abnormal labs on a routine check there. Patient is being treated with chemotherapy for metastatic pancreatic cancer. Patient states his last chemo treatment was the very beginning of June. He states since then he has had daily diarrhea, 5-6 episodes. Patient states he has had intermittent nausea and did have vomiting intermittently including earlier today. Patient states he has had progressively worsening weakness and fatigue, loss of appetite. Patient denies black or bloody stools, denies blood in the emesis today. Patient denies any recent fevers, chills, denies any other known sick contact. Patient states he has previously had issues with electrolyte abnormalities due to his cancer treatment and potential side effects. He states he was told today that his potassium was significantly low and that he would likely need admitted. Patient states he was given a nausea medication when his port was accessed and family bedside also states he was given some fluids. Patient states he has had intermittent accompanying cramping and spasmodic abdominal pain. No current abdominal pain. Pt seen during a time of high acuity and national emergency pandemic while wearing PPE. Home Medications Medication Instructions Recorded Confirmed Type aspirin 81 mg tablet,delayed 81 mg PO DAILY 01/01/21 06/18/21 History release atorvastatin 20 mg tablet 20 mg PO HS 03/06/21 06/18/21 History ondansetron HCl 8 mg tablet 8 mg PO Q8 PRN 03/06/21 06/18/21 History prochlorperazine maleate 10 mg 10 mg PO Q6 PRN 03/06/21 06/18/21 History tablet zolpidem 10 mg tablet 5 - 10 mg PO HS PRN 03/06/21 06/18/21 History enoxaparin 150 mg/mL subcutaneous 140 mg SUBCUT Q24H #30 ml 03/14/21 06/18/21 Rx syringe Allergies Allergy/AdvReac Type Severity Reaction Status Date / Time bee venom protein (honey bee) Allergy Intermediate Swelling Verified 06/07/21 08:20 of Lip/Tongue/Throat Past Med/Surg History Medical History (Updated 06/19/21 @ 22:04 by Delma Ansari DO) Chronic anticoagulation Detached retina Late effect of cerebrovascular accident Lightheadedness Lyme disease Metastatic adenocarcinoma Right sided cerebral hemisphere cerebrovascular accident (CVA) Sepsis Third degree heart block Surgical History Hx of cataract surgery No pertinent past surgical history Family History Father , age 77 of an [place] Myocardial infarction Mother Essential tremor Grandmother (Maternal) Diabetes Grandfather (Paternal) Scoliosis Social History Smoking Status: Never smoker Second Hand Exposure: No; Hx Alcohol Use: No Hx Substance Use: No Preferred Language: Nigerien Communication Ability: Effective Visual Impairment: Limited Hearing Ability: Normal Associate Partner Required: No Beliefs That Will Affect Care: None marital status: Current Living Situation: Spouse current occupational status: employed Other Information That Helps Us Care for You: No Feels Safe at Home: Yes Safety Concerns: Feels Safe At This Time Childhood Exposure to Second-Hand Smoke: No Dental Care, Regularly: Yes Physical Activity Frequency: Daily Seatbelt Use: always Sunscreen Use: Yes Assistive Devices: None Review of Systems A total of 10 systems reviewed and were otherwise negative All systems reviewed & are unremarkable except as noted in HPI & below Physical Exam Vital Signs Vital Signs - 24 hr 06/18/21 15:34 Temperature 36.9 C Temperature Source Temporal Artery Scan Pulse Rate 84 Respiratory Rate 16 Respiratory Effort / Characteristics Non-Labored Spontaneous Respiratory Depth Normal Blood Pressure 88/60 L Blood Pressure Mean 69 Pulse Oximetry 99 Oxygen Delivery Method Room Air Sepsis Recent Fever Within 48 Hours No Sepsis New/Unexplained Change in Mental Status N/A Sepsis Action Taken by Nursing No Action Required GENERAL: alert, ill appearing, well nourished, no distress, non-toxic EYE EXAM: normal conjunctiva, PERRL and EOM's grossly intact OROPHARYNX: no exudate, no erythema, lips, buccal mucosa, and tongue normal and mucous membranes are moist NECK: supple, no nuchal rigidity, no adenopathy, non-tender LUNGS: Clear to auscultation. Normal chest wall mechanics, no w/r/r HEART: no murmurs, S1 normal and S2 normal, port noted right anterior superior chest wall ABDOMEN: abdomen soft, non-tender, normo-active bowel sounds, no masses, no rebound or guarding. BACK: Back is symmetrical on inspection and there is no deformity, no midline tenderness, no CVA tenderness. SKIN: no rashes and no bruising, no petechiae UPPER EXTREMITIES: upper extremities are grossly normal. FROM, nml pulses b/l. LOWER EXTREMITIES: No pitting edema. FROM, nml pulses b/l. NEURO EXAM: Normal sensorium, cranial nerves II-XII grossly intact, normal speech, no gross weakness of arms, no gross weakness of legs. Gross sensation intact. Course Course 162: Discussed with Dr. Maynard. Administered Medications Aspirin (Aspirin 81 Mg Ectab) 81 mg PO DAILY [facility] Stop: 07/19/21 08:59 Last Admin: 06/19/21 07:55 Dose: 81 mg Documented by: [id number] Atorvastatin Calcium (Atorvastatin 20 Mg Tab) 20 mg PO HS [facility] Stop: 07/18/21 21:19 Last Admin: 06/19/21 20:19 Dose: 20 mg Documented by: [id number] Admin: 06/18/21 22:32 Dose: 20 mg Documented by: [id number] Enoxaparin Sodium (Enoxaparin Inj 120 Mg/0.8 Ml Syr) 120 mg SQ Q24H [facility] Stop: 07/18/21 20:59 Last Admin: 06/19/21 20:20 Dose: 120 mg Documented by: [id number] Admin: 06/18/21 22:11 Dose: 120 mg Documented by: [id number] Cefepime HCl 2,000 mg/ Syringe 20 mls @ 5 mls/min IV Q8H [facility]; Protocol Stop: 06/21/21 01:59 Last Admin: 06/19/21 18:08 Dose: 5 mls/min Documented by: [id number] Admin: 06/19/21 10:08 Dose: 5 mls/min Documented by: [id number] Admin: 06/19/21 01:53 Dose: 5 mls/min Documented by: [id number] Magnesium Oxide (Magnesium Oxide 400 Mg Tab) 400 mg PO QAM [facility] Stop: 07/19/21 18:44 Last Admin: 06/19/21 19:34 Dose: 400 mg Documented by: [id number] Discontinued Medications Potassium Chloride/Dextrose/Sod Cl (D5w And 1/2nss + 20meq Kcl) 20 meq in 1,000 mls @ 100 mls/hr IV .Q10H [facility]; Protocol Stop: 07/18/21 16:14 Last Infusion: 06/19/21 19:13 Dose: 0 mls/hr Documented by: [id number] Admin: 06/19/21 14:00 Dose: 100 mls/hr Documented by: [id number] Infusion: 06/19/21 14:00 Dose: 0 mls/hr Documented by: [id number] Admin: 06/19/21 02:44 Dose: 100 mls/hr Documented by: [id number] Infusion: 06/19/21 02:44 Dose: 0 mls/hr Documented by: [id number] Admin: 06/18/21 16:44 Dose: 100 mls/hr Documented by: [id number] Cefepime HCl (Maxipime) 2,000 mg in 20 mls @ 5 mls/min IV NOW STA; Protocol Stop: 06/18/21 16:59 Last Admin: 06/18/21 18:12 Dose: 5 mls/min Documented by: [id number] Prochlorperazine (Compazine) 5 mls @ 1 mls/min IV ONE ONE Stop: 06/18/21 18:09 Last Admin: 06/18/21 18:55 Dose: 1 mls/min Documented by: [id number] Potassium Chloride (K Pawan / Wtr) 20 meq in 100 mls @ 50 mls/hr IV ONE ONE; Protocol Stop: 06/18/21 20:59 Last Infusion: 06/18/21 21:45 Dose: 0 mls/hr Documented by: [id number] Admin: 06/18/21 19:41 Dose: 50 mls/hr Documented by: [id number] Potassium Chloride (K Pawan / Wtr) 10 meq in 100 mls @ 100 mls/hr IV Q1H [facility]; Protocol Stop: 06/19/21 01:59 Last Infusion: 06/19/21 03:17 Dose: 0 mls/hr Documented by: [id number] Admin: 06/19/21 02:13 Dose: 100 mls/hr Documented by: [id number] Infusion: 06/19/21 02:13 Dose: 0 mls/hr Documented by: [id number] Admin: 06/19/21 01:11 Dose: 100 mls/hr Documented by: [id number] Infusion: 06/19/21 01:10 Dose: 0 mls/hr Documented by: [id number] Admin: 06/19/21 00:09 Dose: 100 mls/hr Documented by: [id number] Infusion: 06/18/21 23:55 Dose: 0 mls/hr Documented by: [id number] Admin: 06/18/21 22:32 Dose: 100 mls/hr Documented by: [id number] Potassium Chloride (Potassium Chloride Pwd 20 Meq Pack) 40 meq PO NOW STA Stop: 06/18/21 16:03 Last Admin: 06/18/21 18:12 Dose: 40 meq Documented by: [id number] Potassium Chloride (Potassium Chloride Crtab 20 Meq Tabcr) 40 meq PO TID [facility] Stop: 06/20/21 00:00 Last Admin: 06/19/21 16:02 Dose: 40 meq Documented by: [id number] Potassium Chloride (Potassium Chloride Crtab 20 Meq Tabcr) 20 meq PO NOW STA Stop: 06/19/21 19:17 Last Admin: 06/19/21 19:34 Dose: 20 meq Documented by: [id number] Medical Decision Making Differential Diagnosis Differential Diagnosis includes but is not limited to dehydration, stroke, anemia, hypoglycemia, hyponatremia, hypernatremia, urinary tract infection, pneumonia, bronchitis, sepsis, gastroenteritis, additional abdominal pathology, metabolic abnormalities and infections. Medical Records Attestation: I reviewed the patient's medical records. Home Medications Current Medication List: was personally reviewed by me Laboratory Data Attestation: I reviewed the patient's lab results. Result diagrams: 06/19/21 06:22 06/19/21 17:14 Lab Results 06/18/21 06/18/21 06/18/21 Range/Units 15:56 15:56 16:40 Sodium 136 (136-145) mmol/L Potassium 2.2 L* (3.5-5.1) mmol/L Chloride 109 H (98-107) mmol/L Carbon Dioxide 15 L (21-32) mmol/L Anion Gap 12 H (3-11) BUN 18 (6-23) mg/dl Creatinine 0.98 (0.6-1.4) mg/dl Est Cr Clr Drug Dosing 79.7 ml/min Est GFR ( Amer) 94.7 ml/min Est GFR (Non-Af Amer) 81.7 ml/min BUN/Creatinine Ratio 18.4 (10-20) Glucose 121 H (70-99(Fasting)) mg/dl Lactate 1.0 (0.4-2.0) mmol/L Calcium 7.4 L (8.5-10.1) mg/dl Procalcitonin 1.43 H (0-0.5) ng/ml SARS-CoV-2, RNA, NAAT (NEGATIVE) 06/18/21 Range/Units 16:50 Sodium (136-145) mmol/L Potassium (3.5-5.1) mmol/L Chloride (98-107) mmol/L Carbon Dioxide (21-32) mmol/L Anion Gap (3-11) BUN (6-23) mg/dl Creatinine (0.6-1.4) mg/dl Est Cr Clr Drug Dosing ml/min Est GFR ( Amer) ml/min Est GFR (Non-Af Amer) ml/min BUN/Creatinine Ratio (10-20) Glucose (70-99(Fasting)) mg/dl Lactate (0.4-2.0) mmol/L Calcium (8.5-10.1) mg/dl Procalcitonin (0-0.5) ng/ml SARS-CoV-2, RNA, NAAT NEGATIVE (NEGATIVE) ECG Data Attestation: I personally reviewed and interpreted this ECG as follows: Indication: + weakness Rate (beats per minute): 76 Rhythm: + normal sinus ECG Intervals/blocks: + Normal QRS and + Normal QT ECG [place]: + Normal ECG ST segments: + T-wave inversions (III, aVF, V3-6) and + Nonspecific ST abnormalities Comparison ECG Date: from (03/07/2021) Change: the following changes noted (No T wave inversions) MDM Narrative This is a 65-year-old male with known metastatic cancer who presents after having routine labs done during an IV fluid infusion at the cancer center and was found to have significant hypokalemia. Patient admits to 2 weeks of diarrhea and worsening weakness after last chemo treatment. Patient given oral potassium repletion and started on IV repletion as well. Case discussed with hospitalist due to need for ongoing repletion, rehydration, and close mon itoring. No ectopy or dysrhythmia noted on telemetry. Patient and family at bedside verbalized understanding of all results and were in agreement with plan. Leukocytosis was noted on labs, blood culture and procalcitonin were added as a precaution given ongoing chemotherapy. Procalcitonin was elevated so empiric cefepime was added. COVID-negative, MRSA swab negative. I do not suspect other occult infectious etiology as patient with no other focal symptoms. Despite diarrhea patient has not had any persistent abdominal pain and is pain-free on my exam in the emergency room. I do not suspect occult typhlitis. An order was placed for continuous cardiac monitoring. The monitor shows a rate of _68__ with _normal sinus_ rhythm. Impression & Plan Generalized weakness, Metastatic adenocarcinoma, Acute hypokalemia, Dehydratio n, Diarrhea Discharge Plan Visit Data Chief Complaint: Vomiting Stated Complaint: LOW K, NAUSEA/VOMIT, DIARRHEA, CHEMO INDC'D Discharge Problem: Generalized weakness, Metastatic adenocarcinoma, Acute hypokalemia, Dehydrati on, Diarrhea Patient Disposition: Admitted As Inpatient Discharge Instructions Interventions: ED Discharge Assessment Last Done: 06/18/21 21:00 Discharge Problem: Diarrhea Qualifiers: Diarrhea type: unspecified type Qualified Code(s): R19.7 - Diarrhea, unspecified
[2021-06-18] MEDS: D5W AND 1/2NSS + 20MEQ KCL 20 MEQ/1,000 ML BAG IV SCH (16:44)
[2021-06-18] MEDS ORDERED: CEFEPIME 2,000 MG/20 ML VIAL IV STA (16:56)
--- NOTE | 2021-06-18 17:41 | XRay Report ---
KUB HISTORY: diarrhea COMPARISON: Abdomen and pelvis CT 03/06/2021. FINDINGS: Borderline dilated gas-filled loops of large or small bowel seen throughout the abdomen. No evidence for bowel obstruction. No renal calculi. No ureteral calculi. Calcifications in the deep p abdi likely represent phleboliths. No pneumoperitoneum or pneumatosis. IMPRESSION: 1. No evidence for bowel obstruction. 2. Borderline dilated gas-filled loops of large and small bowel seen throughout the abdomen. This may represent a mild ileus. ACT 112: Negative or not required by law. Electronically signed by: Rashawn Lynch M.D. 06/18/2021 5:39 PM
--- NOTE | 2021-06-18 17:42 | XRay Report ---
XR chest 1V portable HISTORY: leukocytosis COMPARISON: Chest 06/06/2021. FINDINGS: Right jugular Port-A-Cath terminates at the proximal SVC. The heart is normal in size. The lungs are clear. No pleural effusions. No pneumothorax. IMPRESSION: No acute process. ACT 112: Negative or not required by law. Electronically signed by: Rashawn Lynch M.D. 06/18/2021 5:41 PM
[2021-06-18] MEDS ORDERED: PROCHLORPERAZINE 5 ML IV ONE (18:05)
--- NOTE | 2021-06-18 18:13 | History & Physical Report ---
Date of Service June 18, 2021 Assessment & Plan (1) Metastatic adenocarcinoma: Plan: Pleasant 65-year-old male currently undergoing chemotherapy treatments for metastatic adenocarcinoma likely of the pancreas, admitted for severe hypokalemia and ongoing diarrhea. Hypokalemia 2.2 when checked at [facility] 20 meq of potassium via port ordered, 40 mg p.o., 20 mEq in maintenance fluids BMP every 4 hours to follow No EKG changes noted; normal sinus rhythm without QT prolongation or T wave changes. Diarrhea Unlikely to be secondary to chemotherapy given that it started prior to his last treatment C. difficile ordered though patient was not on antibiotics prior to it starting so less likely Given length of symptoms and immunocompromised status stool ova and parasites and GI PCR also ordered Unclear if this is the source of his leukocytosis,, KUB showing bowel gas but no evidence of abscess/infection/perforation Leukocytosis Patient is on Neulasta however last dose was on June 06. He normally receives this approximately 24 to 48 hours after his chemotherapy treatments. In setting of leukocytosis and elevated Pro-Jorge L concern for true infectious origin as opposed to chemotherapy reaction White blood count up to 21.54 from 3.11 5 days ago with a neutrophilic predominance Received 1 dose of cefepime in the emergency department, continued Already received bolus of fluids at [facility] Trend CBC Blood cultures pending No changes on chest x-ray compared to previous Nausea Zofran IV as first-line followed by Compazine IV second line Dysfunctional swallowing Patient has a new complaint of difficulty swallowing/feeling like his food does not go down all the way Speech evaluation 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 Patient is on 130 mg daily subcu Lovenox (1.5 mg/kg/day) which is the recent change from 150 mg of Lovenox We will continue this regimen in the hospital Hypertension Diagnosis of, is not on any medications for Notably lower blood pressures in the 90s over 50s in 100s over 60s at this time Dyslipidemia Continue daily statin History of CVA Continue daily ASA Metastatic adenocarcinoma Will likely need close follow-up with [facility] to discuss if his regimen needs to be adjusted DVT ppx: 130 mg lovenox subq FEN/GI: regular diet, boost/ensure supplementation, D5w 1/2 NS with 20 meQ K Bowel regimen: NA, actively having diarrhea Code Status: Full code Dispo: Med/Tele (2) Leukocytosis: (3) Diarrhea: (4) Hypokalemia: (5) Hypertension: (6) Dyslipidemia: (7) Hx of deep venous thrombosis: (8) Anticoagulant long-term use: History of Present Illness Primary Care Provider: Mino Payan MD 65-year-old male with a past medical history of metastatic adenocarcinoma likely pancreatic undergoing chemotherapy with the [facility] who presents to the ER after having abnormal labs at the [facility]. He recently completed his seventh of 12 treatments of FOLFIRINOX on June 03. He missed his chemotherapy treatment yesterday due to feeling ill and presented to the [facility] earlier today for fluids and lab work; lab work showed a severely low potassium of 2.2 and he was promptly directed towards the emergency department for evaluation. He states that he has been dealing with ongoing watery diarrhea for the past 3 weeks which precedes his last chemotherapy treatment. He denies any bloody or melanotic bowel movements. He denies any pain associate with bowel movements. He has cramping prior to bowel movements but otherwise no pain in association. He has not had any improvement in the symptoms in the past 3 weeks. He denies any known contacts of upper respiratory gastrointestinal illnesses. He denies having any fevers chills night sweats or worsening fatigue. He denies being on any antibiotics prior to the onset of the diarrhea. He has had a few episodes of emesis that have been nonbloody and nonbilious. He mostly deals with nausea on a day-to-day basis for which he takes Zofran and Compazine. Allergies Allergy/AdvReac Type Severity Reaction Status Date / Time bee venom protein (honey bee) Allergy Intermediate Swelling Verified 06/07/21 08:20 of Lip/Tongue/Throat Home Medications Medication Instructions Recorded Confirmed Type aspirin 81 mg tablet,delayed 81 mg PO DAILY 01/01/21 06/18/21 History release atorvastatin 20 mg tablet 20 mg PO HS 03/06/21 06/18/21 History ondansetron HCl 8 mg tablet 8 mg PO Q8 PRN 03/06/21 06/18/21 History prochlorperazine maleate 10 mg 10 mg PO Q6 PRN 03/06/21 06/18/21 History tablet zolpidem 10 mg tablet 5 - 10 mg PO HS PRN 03/06/21 06/18/21 History enoxaparin 150 mg/mL subcutaneous 140 mg SUBCUT Q24H #30 ml 03/14/21 06/18/21 Rx syringe Past Med/Surg History Medical History (Updated 06/18/21 @ 18:30 by Fara Figueroa MD) Chronic anticoagulation Detached retina Late effect of cerebrovascular accident Lightheadedness Lyme disease Metastatic adenocarcinoma Right sided cerebral hemisphere cerebrovascular accident (CVA) Sepsis Third degree heart block Surgical History Hx of cataract surgery No pertinent past surgical history Family History Father , age 77 of an [place] Myocardial infarction Mother Essential tremor Grandmother (Maternal) Diabetes Grandfather (Paternal) Scoliosis Social History Smoking Status: Never smoker Second Hand Exposure: No; Hx Alcohol Use: Yes Alcohol type: wine Hx Substance Use: No Preferred Language: Lebanese Communication Ability: Effective Visual Impairment: Limited Hearing Ability: Normal Patient Services Manager Required: No Beliefs That Will Affect Care: None marital status: Current Living Situation: Spouse current occupational status: employed Feels Safe at Home: Yes Childhood Exposure to Second-Hand Smoke: No Dental Care, Regularly: Yes Physical Activity Frequency: Daily Seatbelt Use: always Sunscreen Use: Yes Assistive Devices: None Review of Systems Constitutional: + fatigue and + anorexia; no fever, no chills and no body aches Respiratory: no cough and no dyspnea Cardiovascular: no chest pain, no dyspnea and no edema Gastrointestinal: + belching, + nausea, + vomiting, + pain with swallowing and + cramping; no abdominal pain, no heartburn, no coffee ground emesis, no hematemesis, no constipation, no diarrhea/loose stools, no blood in stools and no melena Neurologic: no tingling, no numbness, no dizziness and no confusion Physical Exam Physical Exam: Constitutional: thin, in no apparent distress, sitting comfortably in bed, fatigued appearing Eyes: EOMI, pupils equal and reactive bilaterally, no scleral icterus Cardiac: RRR, no murmurs, gallops or rubs. Normal S1, S2 Pulm: poor inspiratory effort, no auscultated wheezes/rhonchi/crackles Chest: port in place on right upper chest Abd: soft, nontender, nondistended, normal bowel sounds, no rebound or guarding Extremities: 2+ peripheral pulses, no edema Neuro: no focal deficits, moving all 4 limbs, A&Ox3 Results & Data Results & Data ([facility]) Vital Signs (Past 12 Hours) Vital Signs Temp Pulse Pulse Resp BP BP Pulse Ox 06/18/21 17:00 82 18 98/58 L 99 06/18/21 16:00 73 12 100/69 99 06/18/21 15:47 101/63 06/18/21 15:34 36.9 C 84 16 88/60 L 99 Laboratory Results Laboratory Results Lactate 1.0 mmol/L (0.4-2.0) 06/18/21 16:40 Procalcitonin 1.43 ng/ml (0-0.5) H 06/18/21 15:56 SARS-CoV-2, RNA, NAAT NEGATIVE (NEGATIVE) 06/18/21 16:50 Impressions Chest X-Ray 06/18/21 16:07 XR chest 1V portable HISTORY: leukocytosis COMPARISON: Chest 06/06/2021. FINDINGS: Right jugular Port-A-Cath terminates at the proximal SVC. The heart is normal in size. The lungs are clear. No pleural effusions. No pneumothorax. IMPRESSION: No acute process. ACT 112: Negative or not required by law. Electronically signed by: Rashawn Lynch M.D. 06/18/2021 5:41 PM KUB X-Ray 06/18/21 16:07 KUB HISTORY: diarrhea COMPARISON: Abdomen and pelvis CT 03/06/2021. FINDINGS: Borderline dilated gas-filled loops of large or small bowel seen throughout the abdomen. No evidence for bowel obstruction. No renal calculi. No ureteral calculi. Calcifications in the deep pelvis likely represent phleboliths. No pneumoperitoneum or pneumatosis. IMPRESSION: 1. No evidence for bowel obstruction. 2. Borderline dilated gas-filled loops of large and small bowel seen throughout the abdomen. This may represent a mild ileus. ACT 112: Negative or not required by law. Electronically signed by: Rashawn Lynch M.D. 06/18/2021 5:39 PM Code Status & VTE Plan VTE Prophylaxis Plan VTE Prophylaxis will be ordered: Yes Supervising Physician Co-Signing Physician Notes Patient seen and examined. I discussed the case with the resident. Agree with her note above. Patient has ongoing diarrhea, now up profoundly hypokalemic. Exam reveals abdomen is soft, nontender, nondistended. Patient is weak but awake and able to answer questions appropriately. Stool studies including C. difficile ordered and are pending. Patient was given broad-spectrum antibiotics by the ER, will hold off of further antibiotics for now pending course. Consideration to GI consultation if diarrhea continues. Resident Activity Tracking Resident Involvement: Resident Care Provided Care Provided: Adult [facility]
[2021-06-18] MEDS ORDERED: MEROPENEM CONSULT ACTIVE PRN (18:42)
[2021-06-18] MEDS ORDERED: MEROPENEM 500 MG in SYRINGE 0 ML IV SCH (18:45)
[2021-06-18] MEDS ORDERED: POTASSIUM CHLORIDE / WTR 20 MEQ/100 ML PLCT IV ONE (19:00)
[2021-06-18 19:10] LABS: BUN Creatinine Ratio 18.4 (10-20); Calcium 7.4 mg/dl (8.5-10.1); Creatinine Clr Calc Pharmacy 79.7 ml/min; Est GFR (African American) 94.7 ml/min; Est GFR (Non-African American) 81.7 ml/min; Potassium 2.2 mmol/L (3.5-5.1)
[2021-06-18] MEDS ORDERED: PROCHLORPERAZINE 5 MG in SYRINGE 4 ML IV PRN (21:20)
[2021-06-18] MEDS ORDERED: ZOLPIDEM TARTRATE 10 MG TAB PO PRN (21:20)
[2021-06-18] MEDS ORDERED: ONDANSETRON INJ 2 MG/ML 2 ML VIAL IV PRN (21:20)
[2021-06-18] MEDS ORDERED: NITROGLYCERIN SL 0.4 MG/TAB TAB SL PRN (21:20)
[2021-06-18] MEDS ORDERED: ACETAMINOPHEN 325 MG TAB PO PRN (21:20)
[2021-06-18] MEDS: ENOXAPARIN INJ 120 MG/0.8 ML SYR SQ SCH (22:11)
[2021-06-18] MEDS: POTASSIUM CHLORIDE / WTR 10 MEQ/100 ML PLCT IV SCH (22:32)
[2021-06-18] MEDS: ATORVASTATIN 20 MG TAB PO SCH (22:32)
[2021-06-18 22:45] LABS: BUN Creatinine Ratio 18.8 (10-20); Calcium 7.1 mg/dl (8.5-10.1); Creatinine Clr Calc Pharmacy 77.3 ml/min; Est GFR (African American) 91.3 ml/min; Est GFR (Non-African American) 78.8 ml/min; Potassium 2.6 mmol/L (3.5-5.1)
[2021-06-19] MEDS: POTASSIUM CHLORIDE / WTR 10 MEQ/100 ML PLCT IV SCH ×3 (00:09→02:13)
[2021-06-19] MEDS: CEFEPIME 2,000 MG in SYRINGE 0 ML IV SCH ×3 (01:53→18:08)
[2021-06-19] MEDS: D5W AND 1/2NSS + 20MEQ KCL 20 MEQ/1,000 ML BAG IV SCH ×2 (02:44→14:00)
[2021-06-19 03:17] LABS: BUN Creatinine Ratio 19.2 (10-20); Calcium 7.1 mg/dl (8.5-10.1); Creatinine Clr Calc Pharmacy 78.9 ml/min; Est GFR (African American) 93.6 ml/min; Est GFR (Non-African American) 80.7 ml/min
[2021-06-19 07:31] LABS: Hematocrit (blood only) 22.2 % (42-52); Hemoglobin 7.3 g/dL (14.0-18.0); Mean Corpuscular Hemoglobin 31.6 pg (25-34); Mean Corpuscular Hgb Conc 32.9 g/dL (32-36); Mean Corpuscular Volume 96.1 fL (80-100); RDW Coefficient of Variation 23.9 % (11.5-14.5); RDW Standard Deviation 81.7 fL (36.4-46.3); Red Blood Count 2.31 M/uL (4.7-6.1); White Blood Count 18.92 K/uL (4.8-10.8)
[2021-06-19 07:36] LABS: Mean Platelet Volume 10.4 fL (7.4-10.4); Platelet Count 84 K/uL (130-400)
[2021-06-19 07:51] LABS: Anisocytosis Present; Basophils # (auto) 0.02 K/uL (0-0.2); Basophils % (auto) 0.1 %; Immature Granulocytes # (auto) 0.91 K/uL (0.00-0.02); Immature Granulocytes % (auto) 4.8 %; Lymphocytes # (auto) 1.49 K/uL (1.2-3.4); Lymphocytes % (auto) 7.9 %; Monocytes # (auto) 0.87 K/uL (0.11-0.59); Monocytes % (auto) 4.6 %; Neutrophils # (auto) 15.63 K/uL (1.4-6.5); Neutrophils % (auto) 82.6 %; Toxic Granulation 1+
[2021-06-19] MEDS: ASPIRIN 81 MG ECTAB PO SCH (07:55)
[2021-06-19 08:11] LABS: Albumin Globulin Ratio 1.1 (0.9-2); Albumin Level 2.3 gm/dl (3.4-5.0); BUN Creatinine Ratio 20.7 (10-20); Bilirubin,Total 0.8 mg/dl (0.2-1.0); Calcium 6.9 mg/dl (8.5-10.1); Creatinine Clr Calc Pharmacy 84.9 ml/min; Est GFR (African American) 102.2 ml/min; Est GFR (Non-African American) 88.2 ml/min; Potassium 2.9 mmol/L (3.5-5.1); Total Protein 4.3 gm/dl (6.0-8.3)
[2021-06-19] MEDS ORDERED: ENOXAPARIN INJ 30 MG/0.3 ML SYR SQ SCH (10:00)
[2021-06-19 10:30] LABS: BUN Creatinine Ratio 19.6 (10-20); Calcium 7.1 mg/dl (8.5-10.1); Creatinine Clr Calc Pharmacy 84.9 ml/min; Est GFR (African American) 102.2 ml/min; Est GFR (Non-African American) 88.2 ml/min; Potassium 2.8 mmol/L (3.5-5.1)
--- NOTE | 2021-06-19 11:17 | Electrocardiogram Report ---
Test Reason : Blood Pressure : / mmHG Vent. Rate : 076 BPM Atrial Rate : 076 BPM P-R Int : 192 ms QRS Dur : 086 ms QT Int : 362 ms P-R-T Axes : 010 002 -72 degrees QTc Int : 407 ms Normal sinus rhythm T wave abnormality, consider anterior ischemia Abnormal ECG When compared with ECG of 07-MAR-2021 05:36, T wave inversion now evident in Anterior leads Confirmed by Eliazar Day ([id number]) on 06/19/2021 11:17:00 AM Referred By: REFERRED SELF Confirmed By:Eliazar Day
--- NOTE | 2021-06-19 13:48 | Electrocardiogram Report ---
Test Reason : Blood Pressure : / mmHG Vent. Rate : 067 BPM Atrial Rate : 067 BPM P-R Int : 222 ms QRS Dur : 088 ms QT Int : 414 ms P-R-T Axes : 021 -02 -22 degrees QTc Int : 437 ms Sinus rhythm with 1st degree A-V block Nonspecific T wave abnormality Abnormal ECG When compared with ECG of 18-JUN-2021 16:19, MA interval has increased T wave inversion no longer evident in Anterior leads Confirmed by Eliazar Day ([id number]) on 06/19/2021 1:48:06 PM Referred By: REFERRED SELF Confirmed By:Eliazar Day
[2021-06-19] MEDS ORDERED: POTASSIUM CHLORIDE CRTAB 20 MEQ TABCR PO SCH (14:00)
[2021-06-19 15:08] LABS: BUN Creatinine Ratio 21.8 (10-20); Calcium 7.1 mg/dl (8.5-10.1); Creatinine Clr Calc Pharmacy 89.7 ml/min; Est GFR (African American) 106.5 ml/min; Est GFR (Non-African American) 91.9 ml/min; Potassium 2.8 mmol/L (3.5-5.1)
[2021-06-19] MEDS ORDERED: SODIUM CHLORIDE 0.9% 250 ML IV PRN (16:50)
[2021-06-19 17:52] LABS: BUN Creatinine Ratio 22.4 (10-20); Calcium 7.2 mg/dl (8.5-10.1); Creatinine Clr Calc Pharmacy 91.8 ml/min; Est GFR (African American) 107.5 ml/min; Est GFR (Non-African American) 92.7 ml/min; Potassium 2.8 mmol/L (3.5-5.1)
--- NOTE | 2021-06-19 18:07 | Hospitalist Progress Note ---
Date of Service June 19, 2021 Assessment & Plan (1) Metastatic adenocarcinoma: Plan: 65-year-old male currently undergoing chemotherapy treatments for metastatic adenocarcinoma likely of the pancreas, admitted for severe hypokalemia and ongoing diarrhea. Hypokalemia -K+ of 2.2 when checked at cancer [facility]; currently 2.8 -80 mEq in total repleted yesterday via port, p.o. and IV. -No EKG changes noted; normal sinus rhythm without QT prolongation or T wave changes. * Potassium 40 mEq p.o. 3 times daily * BMP spaced to every 24 hours Diarrhea -C. difficile negative; stool ova and parasites also ordered -KUB: Bowel gas but no evidence of abscess/infection/perforation -No bowel movement since yesterday; no need for additional work-up/management at this time -Consider resolved Leukocytosis -White blood cell count elevated to 21.54 from 3.15 days ago (neutrophilic predominance); procalcitonin elevated -Patient is afebrile, not septic or dysuric; no infectious source identified at present; no changes on chest x-ray -Patient is on Neulasta; spoke with oncology PA who manages patient: Attribution of some, though not all, of WBC elevation to Neulasta -Likely source GI, given resolution of diarrhea upon initiation of antibiotics * Continue IV cefepime 2 g every 8 hours for leukocytosis of unknown etiology * Blood cultures pending * Trend CBC Anemia -Hemoglobin of 7.3, down from 9.4 on admission -In same conversation with oncology PA, recommendation made to administer 2 units of pRBC * 2 units pRBC transfused * Trend CBC Nausea * IV Zofran 4 mg every 6 hours as needed * IV Compazine 5 mg every 6 hours as needed (second line) 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 -Patient on home Lovenox 130 mg/mL every 24 hours subcutaneous at home * SQ Lovenox 120 mg every 24 hours Dyslipidemia * Home atorvastatin 20 mg nightly History of CVA * Home aspirin 81 mg daily Metastatic adenocarcinoma -Recently completed 12/10 FOLFIRINOX chemo treatment -Patient recently missed neck scheduled treatment due to presenting illness; cancer care clinic notified and is aware DVT ppx: 120 mg lovenox subq FEN/GI: regular diet, boost/ensure supplementation, IV NSS Code Status: Full code Dispo: Med/Tele (2) Hypokalemia: (3) Hx of deep venous thrombosis: (4) Diarrhea: (5) Leukocytosis: (6) Hypertension: (7) CVA (cerebral vascular accident): Admission and Anticipated Discharge Date Admission Date: June 18, 2021 Supervising Physician Co-Signing Physician Notes I personally examined the patient and verified all berry points of history and exam, discussed case, and agree with decision making with Dr Joe Feeling better overall. Diarrhea has resolved. Notes that he has not been eating well at homeno abdominal pain or nausea, no real food aversionjust no appetite. Vitals noted, in general he is awake and alert pleasant no distress. HEENT normocephalic atraumatic mucous membranes moist. Breathing unlabored no accessory muscle use good effort. Skin shows no rashes no pallor or icterus. Abdomen soft nondistended nontender no masses organomegaly. Weaknesslikely due to diarrhea/dehydration/hypokalemiasee below Diarrheaalmost certainly chemotherapy-induced. Supportive care. Followwork- up further if recurs Hypokalemiadue to diarrhea related losses. Diarrhea has stoppedcontinue to repletemagnesium checked, borderlinewe'll replace gently p.o. as well. DehydrationIV fluids, now p.o. intake as well Leukocytosisno signs or symptoms of pneumonia, cellulitis, C. difficile (diarrhea has resolved), UTI. Blood cultures pending. Continue empiric cefepime for now for further time for cultures and for further serial history, serial exam. That said, I suspect his leukocytosis may be a bit reactive to being sick as well as due to his G-CSF. Procalcitonin may even have been elevated due to poorer renal perfusion in the context of dehydration. Again, continue empiric cefepime for now, repeat CBC and Pro-Jorge L in the morning. anticoagulated otherwise as above Mary Gomes is a 65-year-old man currently undergoing chemotherapy (12/10 FOLFIRINOX treatment) who presented to the emergency room for acute management of his hypokalemia of 2.2 that was discovered at his outpatient cancer clinic after presenting there with profound fatigue, watery diarrhea for several days. This morning he is laying in bed in no acute distress. No acute events overnight. Per telemetry: NSR in the 50s to 70s. He denies any fevers, chills, chest pain, shortness of breath, dysuria. He does note that his last bowel movement was yesterday. Review of Systems Review of Systems: All systems reviewed & are unremarkable except as noted in HPI & below Physical Exam Constitutional: + ill appearing and + thin; no acute distress Eyes: PERRL, conjunctivae normal, anicteric sclerae Respiratory: normal respiratory effort, lungs clear to auscultation Cardiovascular: RRR, no murmur, no edema Gastrointestinal (Abdomen): normal bowel sounds, soft, nontender, no hepatosplenomegaly Results & Data Results & Data ([facility]) Vital Signs (Past 12 Hours) Vital Signs Temp Pulse Pulse Resp BP Pulse Ox 06/19/21 16:00 65 06/19/21 11:53 35.9 C L 61 16 95/55 L 96 06/19/21 07:26 34.9 C L 69 12 88/58 L 99 06/19/21 07:10 52 L Resident Activity Tracking Resident Involvement: Resident Care Provided Care Provided: Adult Hospital Medicine (1) CVA (cerebral vascular accident) CVA mechanism: unspecified Qualified Code(s): I63.9 - Cerebral infarction, unspecified
--- NOTE | 2021-06-19 18:48 | Billing Data ---
Date of Service June 19, 2021 Coding Level of Care Code 52756 Subseq Hosp Care Lvl 3
[2021-06-19] MEDS ORDERED: POTASSIUM CHLORIDE CRTAB 20 MEQ TABCR PO STA (19:16)
[2021-06-19] MEDS: MAGNESIUM OXIDE 400 MG TAB PO SCH (19:34)
[2021-06-19] MEDS: ATORVASTATIN 20 MG TAB PO SCH (20:19)
[2021-06-19] MEDS: ENOXAPARIN INJ 120 MG/0.8 ML SYR SQ SCH (20:20)
[2021-06-19] MEDS: POTASSIUM CHLORIDE CRTAB 20 MEQ TABCR PO SCH (23:25)
[2021-06-20 01:32] LABS: BUN Creatinine Ratio 22.8 (10-20); Calcium 7.3 mg/dl (8.5-10.1); Creatinine Clr Calc Pharmacy 98.8 ml/min; Est GFR (African American) 110.8 ml/min; Est GFR (Non-African American) 95.6 ml/min; Potassium 3.1 mmol/L (3.5-5.1)
[2021-06-20] MEDS: CEFEPIME 2,000 MG in SYRINGE 0 ML IV SCH ×3 (01:38→18:31)
[2021-06-20] MEDS: POTASSIUM CHLORIDE CRTAB 20 MEQ TABCR PO SCH ×4 (05:05→23:44)
[2021-06-20 07:03] LABS: BUN Creatinine Ratio 20.4 (10-20); Calcium 7.2 mg/dl (8.5-10.1); Creatinine Clr Calc Pharmacy 75.8 ml/min; Est GFR (African American) 89.2 ml/min; Est GFR (Non-African American) 76.9 ml/min; Potassium 3.4 mmol/L (3.5-5.1)
[2021-06-20 07:04] LABS: Hematocrit (blood only) 29.2 % (42-52); Hemoglobin 9.9 g/dL (14.0-18.0); Mean Corpuscular Hemoglobin 31.8 pg (25-34); Mean Corpuscular Hgb Conc 33.9 g/dL (32-36); Mean Corpuscular Volume 93.9 fL (80-100); Mean Platelet Volume 9.5 fL (7.4-10.4); Nucleated RBC # (auto) 0.15 K/uL (0-0); Nucleated RBC % (auto) 0.5 %; Platelet Count 102 K/uL (130-400); RDW Coefficient of Variation 21.4 % (11.5-14.5); RDW Standard Deviation 68.4 fL (36.4-46.3); Red Blood Count 3.11 M/uL (4.7-6.1); White Blood Count 31.78 K/uL (4.8-10.8)
[2021-06-20 07:06] LABS: Anisocytosis Present; Basophils # (auto) 0.05 K/uL (0-0.2); Basophils % (auto) 0.2 %; Echinocytes 2+; Eosinophils # (auto) 0.01 K/uL (0-0.5); Immature Granulocytes # (auto) 1.58 K/uL (0.00-0.02); Lymphocytes # (auto) 1.07 K/uL (1.2-3.4); Lymphocytes % (auto) 3.4 %; Monocytes # (auto) 1.03 K/uL (0.11-0.59); Monocytes % (auto) 3.2 %; Neutrophils # (auto) 28.04 K/uL (1.4-6.5); Neutrophils % (auto) 88.2 %; Polychromasia 1+
[2021-06-20] MEDS: LACTATED RINGER'S 1,000 ML IV SCH ×2 (08:45→16:45)
[2021-06-20] MEDS: MAGNESIUM OXIDE 400 MG TAB PO SCH (08:57)
[2021-06-20] MEDS: ASPIRIN 81 MG ECTAB PO SCH (08:57)
--- NOTE | 2021-06-20 19:24 | Hospitalist Progress Note ---
Date of Service June 20, 2021 Assessment & Plan (1) Metastatic adenocarcinoma: Plan: 65-year-old male currently undergoing chemotherapy treatments for metastatic adenocarcinoma likely of the pancreas, admitted for severe hypokalemia and ongoing diarrhea. Hypokalemia -K+ currently 3.4, up from 3.1 yesterday. * Potassium 40 mEq p.o. 3 times daily * BMP spaced to every 24 hours; follow-up in the morning Leukocytosis -WBC 31.78, up from 18.92 yesterday; one-time temperature spike to 102.2 F overnight -Patient does not appear septic, denies dysuria; no obvious infectious source at present; no changes on chest x-ray -Though the patient is on Neulasta, unlikely that the spike is attributable to it; more likely culprits include an (as of yet) unknown infection source, immune hypersensitivity in the setting of ongoing chemotherapy * CT abdomen pelvis; f/u on results * Continue IV cefepime 2 g every 8 hours for leukocytosis of unknown etiology * Blood cultures pending * Trend CBC Anemia -Hemoglobin 9.9 after transfusion of 2 units pRBC yesterday; consider resolved * Trend CBC Nausea * IV Zofran 4 mg every 6 hours as needed * IV Compazine 5 mg every 6 hours as needed (second line) 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 -Patient on Lovenox 130 mg/mL every 24 hours subcutaneous at home * SQ Lovenox 120 mg every 24 hours Dyslipidemia * Home atorvastatin 20 mg nightly History of CVA * Home aspirin 81 mg daily Metastatic adenocarcinoma -Recently completed 12/10 FOLFIRINOX chemo treatment -Patient recently missed neck scheduled treatment due to presenting illness; cancer care clinic notified and is aware DVT ppx: 120 mg lovenox subq FEN/GI: regular diet (minced and moist) boost/ensure supplementation, IV NSS Code Status: Full code Dispo: Med/Tele (2) Hypokalemia: (3) Hx of deep venous thrombosis: (4) Diarrhea: (5) Leukocytosis: (6) Hypertension: (7) CVA (cerebral vascular accident): Admission and Anticipated Discharge Date Admission Date: June 18, 2021 Supervising Physician Co-Signing Physician Notes I personally examined the patient and verified all berry points of history and exam, discussed case, and agree with decision making with Dr Joe still feeling better overall. Diarrhea now just a loose stool once a day. No cough chest congestion shortness of breath, no dysuria, diarrhea improved as aforementioned, no painful skin rashes, no other focal symptoms. Does have a poor appetitemostly things just do not taste good, although it is a little bit hard to tell if he even has a food aversion at all. No nausea no dysphagia no abdominal pain. Vitals noted, in general he is awake and alert pleasant no distress. HEENT normocephalic atraumatic mucous membranes moist. Breathing unlabored no accessory muscle use good effort. Skin shows no rashes no pallor or icterus. Weaknesslikely due to diarrhea/dehydration/hypokalemiasee below, acutely overall appears improving Diarrheaalmost certainly chemotherapy-induced. Supportive care. sounds to have been markedly improved. Followwork-up further if recurs Hypokalemiadue to diarrhea related losses. Diarrhea has slowed considerably. continue to replace K DehydrationIV fluids, now p.o. intake as well Leukocytosisno signs or symptoms of pneumonia, cellulitis, C. difficile (diarrhea has improved), UTI. Blood cultures still pending but NGTD. Continue empiric cefepime for now for further time for cultures and for further serial history, serial exam. ?related to tumor. given how compromised he is - but CT chest/abd/pelvis to eval for anything appearing as occult infection. moderate protein/calorie malnutrition - extensive discussions on nutrition/goals/strategies/etc anticoagulated otherwise as above Subjective Patient spiked a fever to 102 F overnight. Patient was not aware of fever and slept through the night. Per telemetry: NSR in the 70s patient reports feeling better compared to yesterday. He denies shortness of breath, fever, chills, abdominal pain, or dysuria. Review of Systems Review of Systems: All systems reviewed & are unremarkable except as noted in HPI & below Physical Exam Constitutional: + ill appearing, + thin, cooperative and comfortable; no acute distress Eyes: PERRL, conjunctivae normal, anicteric sclerae Respiratory: normal respiratory effort, lungs clear to auscultation Cardiovascular: RRR, no murmur, no edema Gastrointestinal (Abdomen): normal bowel sounds, soft, nontender, no hepatosplenomegaly Results & Data Results & Data ([facility]) Vital Signs (Past 12 Hours) Vital Signs Temp Pulse Pulse Resp BP BP Pulse Ox 06/20/21 16:46 84 06/20/21 15:11 36.3 C L 69 20 119/79 99 06/20/21 11:14 36.8 C 80 20 112/76 98 06/20/21 07:39 36.3 C L 84 20 93/57 L 94 06/20/21 07:36 92 H Resident Activity Tracking Resident Involvement: Resident Care Provided Care Provided: Adult Hospital Medicine (1) CVA (cerebral vascular accident) CVA mechanism: unspecified Qualified Code(s): I63.9 - Cerebral infarction, unspecified
--- NOTE | 2021-06-20 19:32 | Billing Data ---
Date of Service June 20, 2021 Coding Level of Care Code 60544 Subseq Hosp Care Lvl 3
[2021-06-20] MEDS: ENOXAPARIN INJ 120 MG/0.8 ML SYR SQ SCH (20:05)
[2021-06-20] MEDS: ATORVASTATIN 20 MG TAB PO SCH (20:05)
[2021-06-21] MEDS: LACTATED RINGER'S 1,000 ML IV SCH ×2 (00:58→09:17)
[2021-06-21] MEDS: POTASSIUM CHLORIDE CRTAB 20 MEQ TABCR PO SCH ×3 (05:58→16:09)
[2021-06-21 06:02] LABS: Hematocrit (blood only) 26.1 % (42-52); Hemoglobin 8.5 g/dL (14.0-18.0); Mean Corpuscular Hgb Conc 32.6 g/dL (32-36); Mean Corpuscular Volume 95.3 fL (80-100); Mean Platelet Volume 10.7 fL (7.4-10.4); Nucleated RBC # (auto) 0.04 K/uL (0-0); Nucleated RBC % (auto) 0.2 %; Platelet Count 101 K/uL (130-400); RDW Coefficient of Variation 21.9 % (11.5-14.5); RDW Standard Deviation 70.1 fL (36.4-46.3); Red Blood Count 2.74 M/uL (4.7-6.1); White Blood Count 20.84 K/uL (4.8-10.8)
[2021-06-21 06:30] LABS: Anisocytosis Present; Basophils # (auto) 0.01 K/uL (0-0.2); Echinocytes 1+; Eosinophils # (auto) 0.03 K/uL (0-0.5); Eosinophils % (auto) 0.1 %; Immature Granulocytes # (auto) 0.63 K/uL (0.00-0.02); Lymphocytes # (auto) 1.71 K/uL (1.2-3.4); Lymphocytes % (auto) 8.2 %; Monocytes % (auto) 8.6 %; Neutrophils # (auto) 16.66 K/uL (1.4-6.5); Neutrophils % (auto) 80.1 %; Ovalocytes 1+; Schistocytes Occasional
--- NOTE | 2021-06-21 06:37 | Hospitalist Progress Note ---
Date of Service June 21, 2021 Assessment & Plan (1) Metastatic adenocarcinoma: Plan: 65-year-old male currently undergoing chemotherapy treatments for metastatic adenocarcinoma likely of the pancreas, admitted for severe hypokalemia and ongoing diarrhea. Hypokalemia -K+ currently 3.4, up from 3.1 yesterday. * Potassium 40 mEq p.o. 3 times daily * BMP spaced to every 24 hours; follow-up in the morning Leukocytosis -WBC 31.78, up from 18.92 yesterday; one-time temperature spike to 102.2 F overnight -Patient does not appear septic, denies dysuria; no obvious infectious source at present; no changes on chest x-ray -Though the patient is on Neulasta, unlikely that the spike is attributable to it; more likely culprits include an (as of yet) unknown infection source, immune hypersensitivity in the setting of ongoing chemotherapy * CT abdomen pelvis; f/u on results * Continue IV cefepime 2 g every 8 hours for leukocytosis of unknown etiology * Blood cultures pending * Trend CBC Anemia -Hemoglobin 9.9 after transfusion of 2 units pRBC yesterday; consider resolved * Trend CBC Nausea * IV Zofran 4 mg every 6 hours as needed * IV Compazine 5 mg every 6 hours as needed (second line) 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 -Patient on Lovenox 130 mg/mL every 24 hours subcutaneous at home * SQ Lovenox 120 mg every 24 hours Dyslipidemia * Home atorvastatin 20 mg nightly History of CVA * Home aspirin 81 mg daily Metastatic adenocarcinoma -Recently completed 12/10 FOLFIRINOX chemo treatment -Patient recently missed neck scheduled treatment due to presenting illness; cancer care clinic notified and is aware DVT ppx: 120 mg lovenox subq FEN/GI: regular diet (minced and moist) boost/ensure supplementation, IV NSS Code Status: Full code Dispo: Med/Tele (2) Hypokalemia: (3) Hx of deep venous thrombosis: (4) Diarrhea: (5) Leukocytosis: (6) Hypertension: (7) CVA (cerebral vascular accident): Admission and Anticipated Discharge Date Admission Date: June 18, 2021 Results & Data Results & Data ([facility]) Vital Signs (Past 12 Hours) Vital Signs Temp Pulse Pulse Resp BP Pulse Ox Pulse Ox 06/21/21 03:18 36.0 C L 72 18 112/76 99 01/20/22 23:00 36.4 C L 70 18 114/78 99 06/20/21 22:37 76 06/20/21 21:00 99 06/20/21 19:00 36.4 C L 72 18 112/74 94 (1) CVA (cerebral vascular accident) CVA mechanism: unspecified Qualified Code(s): I63.9 - Cerebral infarction, unspecified
[2021-06-21 06:47] LABS: BUN Creatinine Ratio 31.3 (10-20); Calcium 6.8 mg/dl (8.5-10.1); Est GFR (African American) 120.8 ml/min; Est GFR (Non-African American) 104.2 ml/min; Potassium 3.4 mmol/L (3.5-5.1)
[2021-06-21] MEDS: MAGNESIUM OXIDE 400 MG TAB PO SCH (08:07)
[2021-06-21] MEDS: ASPIRIN 81 MG ECTAB PO SCH (08:07)
--- NOTE | 2021-06-21 14:02 | Discharge Summary ---
Date of Service June 21, 2021 Admission HPI Per Admitting Provider 65-year-old male with a past medical history of metastatic adenocarcinoma likely pancreatic undergoing chemotherapy with the [facility] who presents to the ER after having abnormal labs at the [facility]. He recently completed his seventh of 12 treatments of FOLFIRINOX on June 03. He missed his chemotherapy treatment yesterday due to feeling ill and presented to the [facility] earlier today for fluids and lab work; lab work showed a severely low potassium of 2.2 and he was promptly directed towards the emergency department for evaluation. He states that he has been dealing with ongoing watery diarrhea for the past 3 weeks which precedes his last chemotherapy treatment. He denies any bloody or melanotic bowel movements. He denies any pain associate with bowel movements. He has cramping prior to bowel movements but otherwise no pain in association. He has not had any improvement in the symptoms in the past 3 weeks. He denies any known contacts of upper respiratory gastrointestinal illnesses. He denies having any fevers chills night sweats or worsening fatigue. He denies being on any antibiotics prior to the onset of the diarrhea. He has had a few episodes of emesis that have been nonbloody and nonbilious. He mostly deals with nausea on a day-to-day basis for which he takes Zofran and Compazine. Principal Diagnosis Diarrhea, hypokalemia Discharge Exam Constitutional + ill appearing, + thin, cooperative and comfortable; no acute distress Eyes PERRL, conjunctivae normal, anicteric sclerae Respiratory normal respiratory effort, lungs clear to auscultation Cardiovascular RRR, no murmur, no edema Gastrointestinal (Abdomen) normal bowel sounds, soft, nontender, no hepatosplenomegaly Discharge Data Allergies Allergy/AdvReac Type Severity Reaction Status Date / Time bee venom protein (honey bee) Allergy Intermediate Swelling Verified 06/07/21 08:20 of Lip/Tongue/Throat Consultations 06/18/21 16:24 ED Decision to Admit Stat Ordered Studies 06/20/21 12:28 CT abd pelvis oral and IV con Routine CT chest diagnostic wo con Routine Hospital Course (1) Metastatic adenocarcinoma: 65-year-old male currently undergoing chemotherapy treatments for metastatic adenocarcinoma likely of the pancreas, admitted for severe hypokalemia and ongoing diarrhea. Hypokalemia -K+ repleted to 3.4, up from admission potassium of 2.6. -Discharged on potassium chloride tablet 40 mg 3 times daily, to be taken for 3 days following discharge. Leukocytosis -WBC 31.78, up from 18.92 yesterday; one-time temperature spike to 102.2 F overnight -Patient does not appear septic, denies dysuria; no obvious infectious source at present; no changes on chest x-ray -Though the patient is on Neulasta, unlikely that the spike is attributable to it; more likely culprits include an (as of yet) unknown infection source, immune hyperreactivity in the setting of ongoing chemotherapy * CT abdomen pelvis; f/u on results * Continue IV cefepime 2 g every 8 hours for leukocytosis of unknown etiology; stopped prior to discharge Anemia -Hemoglobin 9.9 after transfusion of 2 units pRBC yesterday; consider resolved Nausea * IV Zofran 4 mg every 6 hours as needed * IV Compazine 5 mg every 6 hours as needed (second line) 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 -Patient on Lovenox 130 mg/mL every 24 hours subcutaneous at home * SQ Lovenox 120 mg every 24 hours Dyslipidemia * Home atorvastatin 20 mg nightly History of CVA * Home aspirin 81 mg daily Metastatic adenocarcinoma -Recently completed 12/10 FOLFIRINOX chemo treatment (2) Hypokalemia: (3) Hx of deep venous thrombosis: (4) Diarrhea: (5) Leukocytosis: (6) Hypertension: (7) CVA (cerebral vascular accident): Total Time Total Time Spent Total Time Spent (In Minutes): <30 Discharge Plan Discharge Items Patient Disposition: Home - Home Health Services Reason For Visit: HYPOKALEMIA, DIARRHEA Discharge Diagnosis: Severe hypokalemia Activity: Per Instructions section Non-emergency contact: Primary Care Provider Call non-emergency contact if: your symptoms worsen and your temperature is above 101.5 Follow-up/Referrals: Mino Payan MD [Primary Care Provider] - 07/01/21 11:30 am Diet: Regular Addtl Attending Provider Instructions: Mr. Caban, You were admitted to the hospital for hypokalemia, or low blood potassium. While you were here, you were evaluated and treated for other issues that arose during your stay. Please read these instructions carefully for information on your treatment plan upon discharge. Hypokalemia -You were admitted with a potassium level of 2.6. We repleted your potassium with IV, then oral potassium. As of today, your potassium level is at 3.4. * We are sending you home today with a prescription of potassium tablets (40 mEq each). Please take the potassium tablets 3 times daily for the next 3 days. * If you are feeling weak, or start having heart palpitations, please call your primary care provider immediately. If you cannot contact your primary care provider (PCP) please go to the emergency room. Leukocytosis -You were found to have leukocytosis, or a high white blood cell count, on admission. This is usually due to an infection, medications (like steroids), or any sources of bodily stress. -It is most likely that this happened as a consequence of your chemotherapy treatments, rather than an insidious, burgeoning infection. * If you become febrile or start having fevers while at home, contact your PCP. * If you start having worsening shortness of breath, burning with urination, worsening chest pain that radiates to your shoulder, neck, or jaw, call your PCP or go to the emergency room. Malnutrition -As we discussed, an essential part of chemotherapy is meeting your daily caloric requirements. -We calculated your daily caloric goal to be 1902 linn/day. -It is critical that you consume this many calories every single day while you are undergoing chemotherapy. -You can use a variety of calorie counting apps to track your intake for the day. It is highly recommended that you track your caloric intake, rather than guessing/estimating, as this can lead to wildly inaccurate calorie counts. -If you have any issues meeting your daily caloric target because of nausea, lack of appetite, or any other physical symptoms that affect your ability to meet your daily goals, please contact your PCP. -Your PCP can make any number of adjustments to help manage the symptoms so it is highly important that you reach out to them. -Finally, as part of a multi-pronged approach to your care, it is highly recommended that you follow-up with your primary care physician at least once a month, for as long as you are undergoing chemotherapy. This is so that your other medical issues related or unrelated to chemotherapy are being addressed. We believe that this approach offers the best chance of success moving forward. It has been our pleasure to care for you here at [facility]. If you have any questions, please do not hesitate to reach out to us. Pending Studies at Discharge: No Stand-Alone Forms: My [facility] [employer], Smoking Cessation Medications and DC Order Prescriptions: New potassium chloride 20 mEq tablet extended release 40 meq PO TID 3 Days Qty: 18 RF: 0 Continued aspirin 81 mg tablet,delayed release (DR/EC) 81 mg PO DAILY RF: 0 enoxaparin 150 mg/mL syringe 140 mg subcut Q24H Qty: 30 RF: 11 ondansetron HCl 8 mg tablet 8 mg PO Q8 PRN (Reason: Nausea) RF: 0 prochlorperazine maleate 10 mg tablet 10 mg PO Q6 PRN (Reason: Nausea And Vomiting) RF: 0 zolpidem 10 mg tablet 5 - 10 mg PO HS PRN (Reason: insomnia) RF: 0 atorvastatin 20 mg tablet 20 mg PO HS RF: 0 Discharge Orders: Discharge Order (Routine); Ordered 06/21/21 Ordered By: Olesya Joe Admission Data Admit Date/Time: 06/18/21 18:06 Attending Provider: Abdulkadir Mitchell Admit Provider: Fara Figueroa Primary Care Provider: Mino Payan Other Providers: Jimmy Maynard ; [facility] Healthcare Other Interventions: Discharge Summary Assessment (RN) Last Done: 06/21/21 16:55 Supervising Physician Co-Signing Physician Notes I personally examined the patient and verified all berry points of history and exam, discussed case, and agree with decision making with Dr Joe Feels pretty good and would very much like to go home. Diarrhea improved no cough chest congestion shortness of breath, no dysuria, diarrhea improved as aforementioned, no painful skin rashes, no other focal symptoms. No abdominal pain Vitals noted, in general he is awake and alert pleasant no distress. HEENT normocephalic atraumatic mucous membranes moist. Breathing unlabored no accessory muscle use good effort. Skin shows no rashes no pallor or icterus. Weaknesslikely due to diarrhea/dehydration/hypokalemiasee below, acutely overall appears improving, and stable for Diarrheaalmost certainly chemotherapy-induced. Supportive care. Has markedly improved. Followwork-up further if recurs Hypokalemiadue to diarrhea related losses. Diarrhea has slowed considerably. continue to replace K as outpatient and follow-up labs next week Dehydrationimprovedrequired IV fluids, now for p.o. intake at home and basic metabolic panel next week Leukocytosisno signs or symptoms of pneumonia, cellulitis, C. difficile (diarrhea has improved), UTI. Blood cultures several days and are still NGTD. With serial exams serial history serial labsnothing focal has come upwas on empiric cefepime for a few days, but he appears stable for home, and shows no focal signs or symptoms of bacterial infection requiring further antibiotics (i.e. he looks so inconsistent with a bacterial infection that I think further antibiotics would be more harm than good in the situation) question if this is related to tumor, and/or GCSF moderate protein/calorie malnutrition - extensive discussions on n utrition/goals/strategies/etc anticoagulated otherwise as above Resident Activity Tracking Resident Involvement: Resident Care Provided Care Provided: Adult Hospital Medicine
--- NOTE | 2021-06-21 17:24 | Billing Data ---
Date of Service June 21, 2021 Coding Level of Care Code D/C DAY MANAGEMENT <30 MINS
== END 2021-06-21 18:21 | disposition home health service (06) | DRG 394 ==
LOC: ED 15:16 → EDINP 18:06 → SUATTDRO 18:06 → 2N 21:00